=== PATIENT | female | born 1940 | race Caucasian/White ===

== ENCOUNTER → 2017-02-21 | Outpatient (CLI) | payer OTHER ==
[~2017-02-21] MED LIST: ACET1TAB84 PO; ATEN-174 PO; CALCTAB7 PO; LOSA50TA54 PO; MULT-506 PO; PRED1SUS3 OPR
[2017-02-21 13:15] LABS: BASO % 0.3 %; BASO ABS # 0.02 K/uL (0-0.2); COMPLETE YES; EOS % 0.9 %; HEMATOCRIT 39.6 % (37-47); IG% 0.2 %; LYMPH % 28.1 %; LYMPH ABS # 1.86 K/uL (1.2-3.4); MEAN CELL VOLUME 94.3 fL (80-100); MEAN CORPUSCULAR HEMOGLOBIN 31.2 pg (25-34); MEAN CORPUSCULAR HGB CONC 33.1 g/dl (32-36); MEAN PLATELET VOLUME 9.5 fL (7.4-10.4); MONO % 9.2 %; NEUT % 61.3 %; PLATELET COUNT 300 K/uL (130-400); WHITE BLOOD COUNT 6.63 K/uL (4.8-10.8)
[2017-02-21 14:22] LABS: ALT/SGPT 24 U/L (12-78); BLOOD UREA NITROGEN 18 mg/dl (7-18); CARBON DIOXIDE 31 mmol/L (21-32); CHLORIDE 102 mmol/L (98-107); CHOLESTEROL 193 mg/dl (0-200); CREATININE 0.87 mg/dl (0.60-1.20); GLUCOSE 87 mg/dl (70-99); POTASSIUM 4.6 mmol/L (3.5-5.1); SODIUM 138 mmol/L (136-145); TRIGLYCERIDES 93 mg/dl (0-150); VERY LOW DENSITY LIPOPROT CALC 19 mg/dl
[2017-02-21 14:31] LABS: CALCIUM 9.7 mg/dl (8.5-10.1)
[2017-02-21 14:32] LABS: ALB/GLOB RATIO 1.1 (0.9-2); ALKALINE PHOSPHATASE 65 U/L (45-117); AST/SGOT 27 U/L (15-37); CHOLESTEROL/HDL RATIO 3.1; HDL CHOLESTEROL 63 mg/dl; LDL CHOLESTEROL CALCULATED 111 mg/dl
== END | disposition home or self-care (01) ==
LOC: C.LABMFLN 08:41
PROVIDERS: ATTEND Family Medicine
DX: I10 Essential (primary) hypertension (principal); E78.5 Hyperlipidemia, unspecified; E55.9 Vitamin D deficiency, unspecified

== ENCOUNTER 2017-10-10 07:47 | Inpatient (IN) | payer OTHER ==
[2017-09-11 15:01] VITALS: BMI 23.0
--- NOTE | 2017-09-11 15:33 | PAT Medication Instructions ---
Service Date Sep 11, 2017. Current Home Medication List Acetaminophen (Tylenol Arthritis Ext Rel), 650 MG PO HS Atenolol (Tenormin), 50 MG PO HS Calcium Carbonate-Vitamin D W/ (Caltrate 600 Plus), 1 TAB PO BID Losartan Potassium (Cozaar), 50 MG PO QAM Multivitamin (Multivitamin), 1 TAB PO Q2D Medication Instructions For Your Scheduled Surgery - Hold the following medications the morning of surgery: Calcium Carbonate-Vitamin D W/ (Caltrate 600 Plus), 1 TAB PO BID Losartan Potassium (Cozaar), 50 MG PO QAM Multivitamin (Multivitamin), 1 TAB PO Q2D - Take the following medications as scheduled the night before surgery: Acetaminophen (Tylenol Arthritis Ext Rel), 650 MG PO HS Atenolol (Tenormin), 50 MG PO HS Calcium Carbonate-Vitamin D W/ (Caltrate 600 Plus), 1 TAB PO BID Nothing to eat or drink after midnight If you have any questions please call us at [phone] or [phone] or [phone]
[2017-09-11 16:08] LABS: BASO % 0.3 %; BASO ABS # 0.02 K/uL (0-0.2); EOS % 0.8 %; EOS ABS # 0.06 K/uL (0-0.5); HEMATOCRIT 39.6 % (37-47); HEMOGLOBIN 13.2 g/dL (12.0-16.0); IG# 0.02 K/uL (0.00-0.02); LYMPH % 27.7 %; LYMPH ABS # 2.16 K/uL (1.2-3.4); MEAN CELL VOLUME 95.2 fL (80-100); MEAN CORPUSCULAR HEMOGLOBIN 31.7 pg (25-34); MEAN CORPUSCULAR HGB CONC 33.3 g/dl (32-36); MEAN PLATELET VOLUME 10.2 fL (7.4-10.4); MONO % 7.6 %; MONO ABS # 0.59 K/uL (0.11-0.59); NEUT % 63.3 %; NEUT ABS # 4.94 K/uL (1.4-6.5); PLATELET COUNT 277 K/uL (130-400); RED CELL DISTRIBUTION WIDTH SD 45.3 fL (36.4-46.3); WHITE BLOOD COUNT 7.79 K/uL (4.8-10.8)
--- NOTE | 2017-09-11 16:17 | DIAGNOSTIC IMAGING REPORT ---
CHEST 2 VIEWS ROUTINE HISTORY: 77 years-old Female PAT preoperative exam. No acute chest complaints COMPARISON: Chest radiographs 07/26/2012 TECHNIQUE: PA and lateral views of the chest FINDINGS: Cardiac silhouette is again mildly enlarged. Atherosclerosis of the aorta. No pneumothorax, pleural effusion or focal airspace consolidation. Minimal linear subsegmental bibasilar atelectasis or scarring. Bones of the chest appear grossly intact. Degenerative changes of the shoulders and spine are noted with thoracic dextroscoliosis. IMPRESSION: No acute cardiopulmonary process. The above report was generated using voice recognition software. It may contain grammatical, syntax or spelling errors. Electronically signed by: Sundeep Henry M.D. 09/11/2017 4:15 PM Dictated Date/Time: 09/11/2017 4:14 PM
[2017-09-11 16:23] LABS: ALBUMIN 3.8 gm/dl (3.4-5.0); CALCIUM 9.5 mg/dl (8.5-10.1); CREATININE 0.88 mg/dl (0.60-1.20); POTASSIUM 4.4 mmol/L (3.5-5.1)
[2017-09-11 16:33] LABS: INR 0.9 (0.9-1.1); PTT PATIENT 26.5 SECONDS (21.0-31.0)
[2017-09-12 07:51] LABS: HEMOGLOBIN A1C 5.6 % (4.5-5.6)
--- NOTE | 2017-10-09 18:29 | HISTORY & PHYSICAL EXAMINATION ---
DATE OF ADMISSION: 10/10/2017 CHIEF COMPLAINT: Chronic right knee pain. HISTORY OF PRESENT ILLNESS: This is a 77-year-old female patient of Dr. Dominguez'felicitas complaining of chronic right knee pain, longstanding, now progressively getting worse. She has been diagnosed with end-stage osteoarthritis, per clinical and radiographic exams. She has failed intraarticular injections, home exercise program. The patient has increased pain with weightbearing activities and her pain does interfere with her activities of daily living. PAST MEDICAL HISTORY: Hypertension, hypercholesterolemia, and osteoarthritis. SOCIAL HISTORY: Nonsmoker, nondrinker. FAMILY HISTORY: Noncontributory. REVIEW OF SYSTEMS: The patient complains of chronic right knee pain; otherwise, denies any shortness of breath, chest pain, nausea, vomiting or any other joint complaints. PAST SURGICAL HISTORY: Hysterectomy, cataract and left knee surgery. MEDICATIONS: Calcium 600 daily, atenolol 50 mg daily, losartan 50 mg daily, and Tylenol Arthritis as needed. ALLERGIES: No known drug allergies. PHYSICAL EXAMINATION: GENERAL: Well-developed, well-nourished 77-year-old female in no acute distress. She is alert and oriented x3 and pleasant. HEENT: Normocephalic, atraumatic. Extraocular motions are intact. Pupils are equal and reactive to light. HEART: Regular rate and rhythm, no murmurs appreciated. LUNGS: Clear. ABDOMEN: Soft, nontender, bowel sounds present. EXTREMITIES: Right knee reveals a limited range of motion of 0-125 degrees. She has medial joint line tenderness with crepitation. She has 5/5 strength. NEUROLOGIC: Neurovascularly, she is intact in her right lower extremity. DIAGNOSES: Right knee end-stage osteoarthritis with a history of hypertension, hypercholesterolemia, and osteoarthritis. PLAN: The patient was advised of her diagnosis. Indications, risks, benefits, postop course have all been reviewed. The patient wishes to proceed with a right total knee arthroplasty. Necessary consent forms, preoperative testing and clearances will be obtained.
[~2017-10-10] VITALS: Ht 162.6 cm; Wt 62.2 kg
[2017-10-10] VITALS (9 sets, daily range): BP systolic 124–179; BP diastolic 72–83; PULSE 63–81; TEMP 36.3–36.5; O2SAT 95–100; Ht 162.6 cm; Wt 62.2 kg
[2017-10-10] MEDS: TRANEXAMIC ACID INJ 1,000 MG in SYRINGE 0 ML IV SCH ×2 (06:30→10:00)
[~2017-10-10 07:47] MED LIST changes: +ACETAMINOPHEN 500 MG TAB PO SCH; +BUPIVACAINE 0.5 % 5 MG/1 ML PF 10ML VIAL ONE; +CeleBREX 200 MG CAP PO SCH; +DEXAMETHASONE 4 MG TAB PO SCH; +FAMOTIDINE 20 MG TAB PO SCH; +GABAPENTIN 300 MG CAP PO SCH; +LACTATED RINGER'S 1000ML IV SCH; +LACTATED RINGER'S 500 ML IV SCH; +METOCLOPRAMIDE HCL 10 MG TAB PO SCH; -PRED1SUS3 OPR; +ROPIVACAINE 0.5% 5 MG/ML 30 ML VIAL ONE; +ROPIVACAINE 5MG/ML 30 ML 150 MG, BUPIVACAINE 0.5% MPF INJ 30 ML, EpINEphrine HCL INJ 0.... INFIL SCH
[2017-10-10] MEDS ORDERED: HYDROmorphone INJ 2 MG/ML SYR/VIAL IV PRN (08:00)
[2017-10-10] MEDS ORDERED: PHENYLEPHRINE 100MCG/ML 5ML SYR IV PRN (08:00)
[2017-10-10] MEDS ORDERED: ATROPINE SULFATE 0.1 MG/ML 5ML SYR IV PRN (08:00)
[2017-10-10] MEDS ORDERED: EpHEDrine SULFATE INJ 50 MG/ML AMP IV PRN (08:00)
[2017-10-10] MEDS ORDERED: ONDANSETRON INJ 2 MG/ML 2 ML VIAL IV PRN ×2 (08:00→12:15)
[2017-10-10] MEDS ORDERED: FENTANYL CITRATE INJ 50 MCG/1 ML 2 ML VIAL ONE (08:54)
[2017-10-10] MEDS ORDERED: MIDAZOLAM HCL 1 MG/ML 2ML VIAL ONE ×2 (08:54)
--- NOTE | 2017-10-10 08:54 | History & Physical Bridge Note ---
H&P Re-Evaluation Bridge Note: I have examined the patient, reviewed the History & Physical and in the interval since the performance of the History & Physical I have noted the following changes of clinical significance: No changes noted
[2017-10-10] MEDS ORDERED: POVIDONE-IODINE OP SOLN 30 ML BTL ONE (09:29)
[2017-10-10] MEDS ORDERED: ORTHO JOINT ANESTHETIC ONE (09:29)
[2017-10-10] MEDS ORDERED: BACITRACIN 50000 UNIT VIAL ONE (09:29)
[2017-10-10] MEDS: CEFAZOLIN 1000MG IV PUSH 5 ML IV SCH ×2 (10:22→17:32)
[2017-10-10] MEDS ORDERED: PROPOFOL IV EMULSION 10 MG/ML 20 ML VIAL IV ONE (11:12)
[2017-10-10] MEDS ORDERED: PHENYLEPHRINE HCL INJ 10 MG/ML VIAL ONE (11:13)
[2017-10-10] MEDS ORDERED: PHENYLEPHRINE 100MCG/ML 5ML SYR ONE (11:13)
--- NOTE | 2017-10-10 11:41 | [facility] Post Operative Brief Note ---
Immediate Operative Summary Operative Date Oct 10, 2017. Pre-Operative Diagnosis Right knee end-stage osteoarthritis Post-Operative Diagnosis Right knee end-stage osteoarthritis Procedure(s) Performed Right Total Knee Arthroplasty Surgeon Dr. Dominguez Candle Making Supervisor Surgeon(s) Tony Padgett Estimated Blood Loss 5 ml Findings end stage djd oa grade 4 medial Specimens Permanent Specimen A. Right Knee bone and tissue Drains 2 hemovac Anesthesia spinal, sedation and orthomix, adductor block Complication(s) None Disposition Recovery Room / PACU
[2017-10-10] MEDS ORDERED: MAGNESIUM HYDROXIDE SUSP 30 ML UDC PO PRN (12:15)
[2017-10-10] MEDS ORDERED: SOD PHOSPHATE/SOD BIPHOSPHATE ENEMA 132 ML BTL PR PRN (12:15)
[2017-10-10] MEDS ORDERED: ZOLPIDEM TARTRATE 5 MG TAB PO PRN (12:15)
[2017-10-10] MEDS ORDERED: TRAMADOL HCL 50 MG TAB PO PRN (12:15)
[2017-10-10] MEDS ORDERED: METOCLOPRAMIDE HCL INJ 5 MG/ML 2 ML VIAL IV PRN (12:15)
[2017-10-10] MEDS ORDERED: MoRPHine SULFATE 2 MG/ML CARP IV PRN (12:15)
[2017-10-10] MEDS ORDERED: BISACODYL 10 MG SUPP PR PRN (12:15)
[2017-10-10] MEDS ORDERED: CEFAZOLIN IV 1,000 MG in DEXTROSE 5% 50ML 50 ML IV SCH (12:15)
--- NOTE | 2017-10-10 12:58 | DIAGNOSTIC IMAGING REPORT ---
TWO VIEWS RIGHT KNEE CLINICAL HISTORY: Postoperative examination. FINDINGS: AP and crosstable lateral portable views of the right knee are obtained. A right knee arthroplasty is in near anatomic alignment. There has been undersurface remodeling of the patella. No acute fracture is seen. There are expected postoperative changes around the knee including skin clips, a surgical drain, soft tissue edema, and subcutaneous gas. Atherosclerotic calcification is noted in the popliteal artery. IMPRESSION: Expected postoperative changes status post right knee arthroplasty. No acute fracture is seen. Electronically signed by: Milton Felix M.D. 10/10/2017 12:57 PM Dictated Date/Time: 10/10/2017 12:56 PM
--- NOTE | 2017-10-10 12:58 | Anesthesiology Progress Note ---
Anesthesia Post Op Note Date & Time Oct 10, 2017 at 12:58 Vital Signs Pain Intensity: 0 Vital Signs Past 12 Hours Date Time Temp Pulse Resp B/P (MAP) Pulse Ox O2 Delivery O2 Flow Rate FiO2 10/10/17 12:35 36.4 76 16 142/72 100 Nasal Cannula 2 10/10/17 12:25 78 16 141/70 99 Oxymask 10 10/10/17 12:15 77 16 130/72 99 Oxymask 10 10/10/17 12:08 36.6 80 16 133/74 98 Oxymask 10 10/10/17 08:10 36.4 63 20 179/83 98 Room Air Notes Mental Status: alert / awake / arousable, participated in evaluation Pt Amnestic to Procedure: Yes Nausea / Vomiting: adequately controlled Pain: adequately controlled Airway Patency, RR, SpO2: stable & adequate BP & HR: stable & adequate Hydration State: stable & adequate Anesthetic Complications: no major complications apparent
--- NOTE | 2017-10-10 13:24 | Medical Consult ---
Consultation Date of Consultation: Oct 10, 2017. Attending Physician: Martinez Dominguez M.D. History of Present Illness 77 y/o F Hx HTN, HPL, osteoarthritis. Presented for elective R TKR. Pt appears to be recovering well post-op. Denies CP, SOB, N/V, fevers. Denies excessive pain presently. Past Medical/Surgical History 1) HTN 2) HPL 3) OA Family History Noncontributory Social History Occasional ETOH - nonsmoker Smoking Status: Never Smoker Allergies Coded Allergies: No Known Allergies (Unverified , 10/10/17) Current Inpatient Medications Current Inpatient Medications Medications (Trade) Dose Ordered Sig/Beatrice Route Start Time Stop Time Status Last Admin Dose Admin Lactated Ringer's 1,000 ml @ 60 mls/hr [id number] IV 10/10/17 06:00 10/10/17 22:39 Cefazolin Sodium 5 ml @ 1.667 mls/ min PREOP IV 10/10/17 06:00 10/10/17 18:00 10/10/17 10:22 1.667 MLS/MIN Acetaminophen (Tylenol Tab) 1,000 mg PREOP PO 10/10/17 06:00 10/10/17 18:00 10/10/17 08:22 1,000 MG Celecoxib (CeleBREX CAP) 200 mg PREOP PO 10/10/17 06:00 10/10/17 18:00 10/10/17 08:20 200 MG Dexamethasone (Decadron Tab) 8 mg PREOP PO 10/10/17 06:00 10/10/17 18:00 10/10/17 08:20 8 MG Famotidine (Pepcid Tab) 20 mg PREOP PO 10/10/17 06:00 10/10/17 18:00 10/10/17 08:21 20 MG Gabapentin (Neurontin Cap) 300 mg PREOP PO 10/10/17 06:00 10/10/17 18:00 10/10/17 08:21 300 MG Metoclopramide HCl (Reglan Tab) 10 mg PREOP PO 10/10/17 06:00 10/10/17 18:00 10/10/17 08:21 10 MG Lactated Ringer's 1,000 ml @ 15 mls/hr Q24H IV 10/10/17 06:00 10/11/17 05:59 Atenolol (Tenormin Tab) 50 mg HS PO 10/10/17 21:00 11/09/17 20:59 Calcium/Vitamin D (Caltrate Plus Tab) 1 tab BID PO 10/10/17 21:00 11/09/17 20:59 Losartan Potassium (coZAAR TAB) 50 mg QAM PO 10/11/17 09:00 11/10/17 08:59 Potassium Chloride/Dextrose/ Sod Cl 1,000 ml @ 100 mls/hr Q10H IV 10/10/17 13:30 10/11/17 13:29 Cefazolin Sodium 1000 mg/Dextrose 55 ml @ 100 mls/hr Q8H IV 10/10/17 12:15 10/10/17 20:47 UNV Celecoxib (CeleBREX CAP) 200 mg BID PO 10/10/17 21:00 11/09/17 20:59 Oxycodone HCl (Roxicodone Immediate Rel Tab) 1 TABLET FOR PAIN RATING... Q4H PRN PO 10/10/17 12:15 10/24/17 12:14 Morphine Sulfate (MoRPHine SULFATE INJ) FOR PAIN, 2-4MG 2MG FOR P... Q2H PRN IV 10/10/17 12:15 10/24/17 12:14 Acetaminophen (Tylenol Tab) 1,000 mg Q8H PO 10/10/17 16:00 11/09/17 15:59 Magnesium Hydroxide (Milk Of Magnesia Susp) 30 ml Q6H PRN PO 10/10/17 12:15 11/09/17 12:14 Bisacodyl (Dulcolax Supp) 10 mg DAILY PRN RI 10/10/17 12:15 11/09/17 12:14 Sodium Biphosphate/ Sodium Phosphate (Fleet Enema) 132 ml DAILY PRN RI 10/10/17 12:15 11/09/17 12:14 Docusate Sodium (coLACE CAP) 100 mg BID PO 10/10/17 21:00 11/09/17 20:59 Diphenhydramine HCl (Benadryl Cap) 25 mg Q8H PRN PO 10/10/17 12:15 11/09/17 12:14 Zolpidem Tartrate (Ambien Tab) 5 mg HSZ PRN PO 10/10/17 12:15 11/09/17 12:14 Multivitamins (Multivitamin Tab) 1 tab QAM PO 10/11/17 09:00 11/10/17 08:59 Ondansetron HCl (Zofran Inj) 4 mg Q6H PRN IV 10/10/17 12:15 11/09/17 12:14 Metoclopramide HCl (Reglan Inj) 10 mg Q6H PRN IV 10/10/17 12:15 11/09/17 12:14 Pantoprazole Sodium (Protonix Tab) 40 mg QAM PO 10/11/17 09:00 11/10/17 08:59 Tramadol HCl (Ultram Tab) 1 tablet for pain rating... Q4H PRN PO 10/10/17 12:15 11/09/17 12:14 Aspirin (Ecotrin Tab) 81 mg BID PO 10/10/17 21:00 11/09/17 20:59 Review of Systems Constitutional: No fever, No chills, No sweats Eyes: No worsening of vision ENT: No hearing loss, No unusual epistaxis, No nasal symptoms Respiratory: No cough, No sputum, No wheezing Cardiovascular: No chest pain, No orthopnea, No PND Abdomen: No pain, No nausea, No vomiting Musculoskeletal: No joint pain Genitourinary - Female: No dysuria, No urinary frequency, No urinary urgency Neurologic: No memory loss, No paralysis, No weakness Psychiatric: No depression symptoms Endocrine: No fatigue Hematologic / Lymphatic: No abnormal bleeding/bruising Integumentary: No rash Allergic / Immunologic: No environmental allergies Physical Exam Date Time Temp Pulse Resp B/P (MAP) Pulse Ox O2 Delivery O2 Flow Rate FiO2 10/10/17 12:50 36.4 81 18 151/81 (104) 98 Nasal Cannula 2.0 10/10/17 12:35 36.4 76 16 142/72 100 Nasal Cannula 2 10/10/17 12:25 78 16 141/70 99 Oxymask 10 10/10/17 12:15 77 16 130/72 99 Oxymask 10 10/10/17 12:08 36.6 80 16 133/74 98 Oxymask 10 10/10/17 08:10 36.4 63 20 179/83 98 Room Air General Appearance: WD/WN, no apparent distress Head: normocephalic Eyes: normal inspection ENT: normal ENT inspection, hearing grossly normal, TMs normal, pharynx normal Neck: supple, no JVD Respiratory/Chest: chest non-tender, lungs clear, normal breath sounds Cardiovascular: regular rate, rhythm, no edema, no gallop Abdomen/GI: normal bowel sounds, non tender, soft Genitourinary - Female: external genitalia normal, normal pelvic exam, normal cervix Back: normal inspection, no CVA tenderness Extremities/Musculoskelatal: normal inspection, no calf tenderness, normal capillary refill Neurologic/Psych: improvement engineer II-XII nml as tested, no motor/sensory deficits, alert Skin: normal color, warm/dry Assessment & Plan 77 y/o F Hx HTN, HPL, osteoarthritis. Presented for elective R TKR. Pt appears to be recovering well post-op. Denies CP, SOB, N/V, fevers. Denies excessive pain presently. 1) Post-op - pain is presently controlled - narcotics provided as needed - cont IVF - anticoagulation at earliest possible time, PT/OT per ortho 2) HTN - restart ARB folllowing AM labs 3) HPL - is untreated - diet-controlled at present Total time for this consult including review of labs, meds, records, surgical notes and discussion with pt - 28 min
[2017-10-10] MEDS: D5W AND 1/2NSS + 20MEQ KCL 1,000 ML IV SCH (13:47)
[2017-10-10] MEDS: ACETAMINOPHEN 500 MG TAB PO SCH (16:00)
[2017-10-10] MEDS: CEFAZOLIN IV 1,000 MG in SYRINGE 0 ML IV SCH (17:32)
--- NOTE | 2017-10-10 19:26 | OPERATIVE REPORT ---
DATE OF OPERATION: 10/10/2017 INDICATION FOR PROCEDURE: The patient is a 77-year-old female with progressive osteoarthritis in her left knee. She has radiographs demonstrates she is [id number] in the medial compartment with a varus knee and large osteophytes. PREOPERATIVE DIAGNOSIS: End-stage osteoarthritis of left knee. POSTOPERATIVE DIAGNOSIS: Same. PROCEDURE: Left total knee arthroplasty. SURGEON: Dr. Dominguez. PATHOLOGY COLLECTOR: VANCE Cassidy. ANESTHESIA: Spinal, adductor nerve block and Orthomix. OPERATIVE PROCEDURE: The patient was taken to the operating room and anesthetized under anesthesia as dictated. Pneumatic tourniquet was placed on left upper thigh. Left lower extremity was prepped and draped in sterile fashion. Exam demonstrates she had a varus knee with no pseudolaxity. She had a slight flexion contracture and flexion to 115 degrees. The leg was elevated, exsanguinated with Esmarch bandage and pneumatic tourniquet was raised to 325 mmHg. Anterior incision made across the left knee. Skin was incised sharply. Subcutaneous flaps were elevated. The incision was carried down through the medial retinaculum extended up into the mid third of the quadriceps tendon and extended down to the medial tibial tubercle. Intraarticular findings demonstrated she has some tricompartment osteoarthritic changes, but primarily medial compartment DJD, [id number] in the medial compartment. I used the [employer] Journey 2.0 total knee arthroplasty, Systane using Rystoaire MRI templating. The femur was sized for a size 5 and the tibia for a size 3 component. To expose the knee, the infrapatellar fat pad was resected, the cruciate ligaments and meniscal remnants were resected. The fat pad over the anterior femur for placement of the component in that area was resected. Lateral synovial bands were released. The femur was exposed. The custom femoral cutting block was pinned in position and the distal femoral cut was made. The 5-1 cutting block was placed for the 5 femur component. Anterior, posterior and chamfer cuts were made. The knee was extended and a subperiosteal peel lateral release was performed around the patella. Then a freehand cut technique was used, the patellar width was reproduced using a 35 patellar component. Drill holes were made for the patella and excess lateral facet was beveled off to prevent any impingement. The tibia was then exposed by subluxing the tibia. Then the custom tibial cutting block was pinned in position and the proximal tibial cut was made. Lamina seat coverer was used to assess the ligamentous balance, ligaments were balanced in extension and flexion. The tibia was re-exposed and the size 3 tibial baseplate was externally rotated in line with the tibial tubercle, pinned in position and the punch for the stem was used. The 5 femoral trial was inserted, centered and the notch cutting devices were used. A collet was placed and a 13 poly insert high flex gave balanced ligaments through full range of motion and patella tracked centrally. The trials were removed and then the anesthetic cocktail was injected per protocol. The knee was copiously irrigated with pulsatile lavage antibiotic solution and bacitracin. The final components were then cemented with Simplex G cement. The final components were the [employer] Journey 2.0 total knee arthroplasty size 5 left femur with the 3 tibial baseplate, 13 high flex poly insert and the posterior stabilized poly insert, and the 35 patella. The patella was a dome patella. While cement cured, the Betadine soak was used per protocol. The knee was copiously irrigated out with antibiotic solution and bacitracin. Two drains were brought out laterally. Quadriceps tendon and medial retinaculum were closed with interrupted [id number] #1 Vicryl sutures. The knee was taken through full range of motion and repair was secure. The subcutaneous tissues were closed with interrupted 2-0 Vicryl, skin was closed with cesario, sterile dressings were applied and the patient tolerated the procedure well. VANCE Cassidy was my food and beverage assistant manager. He was present for the entire procedure. He assisted in leg positioning, soft tissue retraction, instrument management and performed the fascial, subcutaneous and skin closure and will participate in postop care of the patient. I attest to the content of the Intraoperative Record and any orders documented therein. Any exception s are noted below.
[2017-10-10] MEDS: CeleBREX 200 MG CAP PO SCH (20:42)
[2017-10-10] MEDS: CALCIUM 600MG + VIT D 400 IU TAB PO SCH (20:42)
[2017-10-10] MEDS: ASPIRIN 81 MG ECTAB PO SCH (20:43)
[2017-10-10] MEDS: DOCUSATE SODIUM 100 MG CAP PO SCH (20:43)
[2017-10-11] VITALS (7 sets, daily range): BP systolic 138–188; BP diastolic 72–83; PULSE 58–71; TEMP 36.5–36.7; O2SAT 96–97
[2017-10-11] MEDS: ACETAMINOPHEN 500 MG TAB PO SCH ×4 (00:22→23:47)
[2017-10-11] MEDS: D5W AND 1/2NSS + 20MEQ KCL 1,000 ML IV SCH ×2 (00:23→10:19)
[2017-10-11] MEDS: CEFAZOLIN IV 1,000 MG in SYRINGE 0 ML IV SCH (02:30)
--- NOTE | 2017-10-11 07:07 | Clinical Documentation Query ---
CLINICAL DOCUMENTATION QUERY Dr. PIMENTEL, There is a discrepancy in the clinical record. H/P indicates pt with Right knee end-stage OA. Operative Record indicates the pt had a Left TKA. In your clinical opinion did this patient have: (x ) R TKA ( ) Not Agree ( ) Other explanation of clinical findings (Please Explain) ( ) Unable to determine (Please Define) ( ) Need to Discuss Please clarify and document your clinical opinion in the progress notes and discharge summary. Terms such as "probable", "suspected", "likely", "questionable", "possible", or "still to be ruled out" are acceptable. IF IN AGREEMENT, YOU MUST DOCUMENT ABOVE DIAGNOSTIC STATEMENT IN DAILY PROGRESS NOTES AND DISCHARGE SUMMARY. This document is not part of the patient's record. Thank You, Felicita Ruiz RN [phone]
[2017-10-11 07:20] LABS: HEMATOCRIT 30.2 % (37-47); MEAN CELL VOLUME 95.3 fL (80-100); MEAN CORPUSCULAR HEMOGLOBIN 31.5 pg (25-34); MEAN CORPUSCULAR HGB CONC 33.1 g/dl (32-36); MEAN PLATELET VOLUME 9.9 fL (7.4-10.4); PLATELET COUNT 234 K/uL (130-400); RED CELL DISTRIBUTION WIDTH CV 12.9 % (11.5-14.5); WHITE BLOOD COUNT 13.57 K/uL (4.8-10.8)
--- NOTE | 2017-10-11 07:36 | OPERATIVE REPORT ---
DATE OF OPERATION: 10/10/2017 ADDENDUM I dictated in the operative note that it was a left knee and the surgery was performed on her right knee and the dictation was in error and needs to be changed to the right knee so all aspects of the report where left side was mention should be changed to right. I attest to the content of the Intraoperative Record and any orders documented therein. Any exceptions are noted below. DEBBI
[2017-10-11 07:53] LABS: CALCIUM 8.5 mg/dl (8.5-10.1); CREATININE 0.83 mg/dl (0.60-1.20); POTASSIUM 4.7 mmol/L (3.5-5.1)
[2017-10-11] MEDS: DOCUSATE SODIUM 100 MG CAP PO SCH ×2 (08:49→20:54)
[2017-10-11] MEDS: LOSARTAN POTASSIUM 50 MG TAB PO SCH (08:49)
[2017-10-11] MEDS: PANTOprazole SOD 40 MG TAB PO SCH (08:50)
[2017-10-11] MEDS: ASPIRIN 81 MG ECTAB PO SCH ×2 (08:50→20:54)
[2017-10-11] MEDS: MULTIVITAMIN TAB PO SCH (08:50)
[2017-10-11] MEDS: CeleBREX 200 MG CAP PO SCH ×2 (08:50→20:54)
[2017-10-11] MEDS: CALCIUM 600MG + VIT D 400 IU TAB PO SCH ×2 (08:50→20:54)
--- NOTE | 2017-10-11 09:42 | Orthopedic Progress Note ---
Orthopedic Progress Note Date of Service Oct 11, 2017. Subjective Post OP Day: 1 Reports: feeling well, pain controlled w PO medications, Denies: complaints, chest pain, SOB, nausea / vomiting, light headedness, calf pain Objective calves soft nontender, N/V intact, capillary refill less than 2 sec., dressing C /D/I, A&O x3, toes mobile Patient with Right foot drop but states it has been improving overnight, is feeling some tingling and is able to wiggle toes. Date Time Temp Pulse Resp B/P (MAP) Pulse Ox O2 Delivery O2 Flow Rate FiO2 10/11/17 08:00 Room Air 10/11/17 07:36 36.7 63 19 164/79 (107) 97 Room Air 10/11/17 03:34 36.7 58 16 138/72 (94) 97 Room Air 10/11/17 00:15 Room Air 10/10/17 23:08 36.5 64 16 124/75 (91) 96 Room Air 10/10/17 20:39 63 144/72 (96) 10/10/17 20:18 36.5 66 17 153/72 (99) 95 Room Air 10/10/17 15:58 36.3 73 17 155/73 (100) 98 Nasal Cannula 2.0 10/10/17 15:45 Room Air 10/10/17 14:56 75 16 144/81 (102) 98 Room Air 10/10/17 13:52 79 16 153/79 (103) 100 Nasal Cannula 2.0 10/10/17 13:29 Nasal Cannula 2.0 10/10/17 13:24 Nasal Cannula 2.0 10/10/17 13:18 77 16 145/82 (103) 99 Nasal Cannula 2.0 10/10/17 12:50 36.4 81 18 151/81 (104) 98 Nasal Cannula 2.0 10/10/17 12:35 36.4 76 16 142/72 100 Nasal Cannula 2 10/10/17 12:25 78 16 141/70 99 Oxymask 10 10/10/17 12:15 77 16 130/72 99 Oxymask 10 10/10/17 12:08 36.6 80 16 133/74 98 Oxymask 10 Laboratory Results 24 Hours: Test 10/11/17 06:44 Hematocrit 30.2 % Hemoglobin 10.0 g/dL Assessment & Plan Assessment: POD #1, Right TKA Post op foot drop, improving already. Plan: PT/ OT DVT proph- ASA D/C planning- Home w OPPT Sunday. Inhouse Planning Pain Management: Celebrex, Morphine, PO Tylenol, Oxy IR DVT Prophylaxis: TEDs, SCDs, ASA Discharge Planning Discharge Planning: home with oppt Pain Management: Celebrex, PO Tylenol, Oxy IR DVT Prophylaxis: TEDs, ASA Therapy: Physical Therapy, Occupational Therapy
--- NOTE | 2017-10-11 11:05 | Hospitalist Progress Note ---
Hospitalist Progress Note Date of Service Oct 11, 2017. Subjective Pt evaluation today including: conversation w/ patient, physical exam, lab review, review of inpatient medication list Voiding: no voiding problems Patient sitting in bedside chair. Eating and drinking OK. +BM this AM. Pain 0/10. Patient denies any fever, chills, sweats, lightheadedness, dizziness, vision changes, CP, palpitations, edema, SOB, wheezing, cough, abdominal pain, nausea, vomiting, diarrhea, urinary symptoms, melena, numbness/tingling, weakness, muscle/joint pain, anxiety/depression, active bleeding, or new skin discoloration/changes. Medications Current Inpatient Medications Medications (Trade) Dose Ordered Sig/Beatrice Route Start Time Stop Time Status Last Admin Dose Admin Atenolol (Tenormin Tab) 50 mg HS PO 10/10/17 21:00 11/09/17 20:59 10/10/17 20:43 50 MG Calcium/Vitamin D (Caltrate Plus Tab) 1 tab BID PO 10/10/17 21:00 11/09/17 20:59 10/11/17 08:50 1 TAB Losartan Potassium (coZAAR TAB) 50 mg QAM PO 10/11/17 09:00 11/10/17 08:59 10/11/17 08:49 50 MG Potassium Chloride/Dextrose/ Sod Cl 1,000 ml @ 100 mls/hr Q10H IV 10/10/17 13:30 10/11/17 13:29 10/11/17 10:19 100 MLS/HR Celecoxib (CeleBREX CAP) 200 mg BID PO 10/10/17 21:00 11/09/17 20:59 10/11/17 08:50 200 MG Oxycodone HCl (Roxicodone Immediate Rel Tab) 1 TABLET FOR PAIN RATING... Q4H PRN PO 10/10/17 12:15 10/24/17 12:14 Morphine Sulfate (MoRPHine SULFATE INJ) FOR PAIN, 2-4MG 2MG FOR P... Q2H PRN IV 10/10/17 12:15 10/24/17 12:14 Acetaminophen (Tylenol Tab) 1,000 mg Q8H PO 10/10/17 16:00 11/09/17 15:59 10/11/17 08:49 1,000 MG Magnesium Hydroxide (Milk Of Magnesia Susp) 30 ml Q6H PRN PO 10/10/17 12:15 11/09/17 12:14 Bisacodyl (Dulcolax Supp) 10 mg DAILY PRN WI 10/10/17 12:15 11/09/17 12:14 Sodium Biphosphate/ Sodium Phosphate (Fleet Enema) 132 ml DAILY PRN WI 10/10/17 12:15 11/09/17 12:14 Docusate Sodium (coLACE CAP) 100 mg BID PO 10/10/17 21:00 11/09/17 20:59 10/11/17 08:49 100 MG Diphenhydramine HCl (Benadryl Cap) 25 mg Q8H PRN PO 10/10/17 12:15 11/09/17 12:14 Zolpidem Tartrate (Ambien Tab) 5 mg HSZ PRN PO 10/10/17 12:15 11/09/17 12:14 Multivitamins (Multivitamin Tab) 1 tab QAM PO 10/11/17 09:00 11/10/17 08:59 10/11/17 08:50 1 TAB Ondansetron HCl (Zofran Inj) 4 mg Q6H PRN IV 10/10/17 12:15 11/09/17 12:14 Metoclopramide HCl (Reglan Inj) 10 mg Q6H PRN IV 10/10/17 12:15 11/09/17 12:14 Pantoprazole Sodium (Protonix Tab) 40 mg QAM PO 10/11/17 09:00 10/15/17 08:59 10/11/17 08:50 40 MG Tramadol HCl (Ultram Tab) 1 tablet for pain rating... Q4H PRN PO 10/10/17 12:15 11/09/17 12:14 Aspirin (Ecotrin Tab) 81 mg BID PO 10/10/17 21:00 11/09/17 20:59 10/11/17 08:50 81 MG Objective Vital Signs Date Time Temp Pulse Resp B/P (MAP) Pulse Ox O2 Delivery O2 Flow Rate FiO2 10/11/17 08:00 Room Air 10/11/17 07:36 36.7 63 19 164/79 (107) 97 Room Air 10/11/17 03:34 36.7 58 16 138/72 (94) 97 Room Air 10/11/17 00:15 Room Air 10/10/17 23:08 36.5 64 16 124/75 (91) 96 Room Air 10/10/17 20:39 63 144/72 (96) 10/10/17 20:18 36.5 66 17 153/72 (99) 95 Room Air 10/10/17 15:58 36.3 73 17 155/73 (100) 98 Nasal Cannula 2.0 10/10/17 15:45 Room Air 10/10/17 14:56 75 16 144/81 (102) 98 Room Air 10/10/17 13:52 79 16 153/79 (103) 100 Nasal Cannula 2.0 10/10/17 13:29 Nasal Cannula 2.0 10/10/17 13:24 Nasal Cannula 2.0 10/10/17 13:18 77 16 145/82 (103) 99 Nasal Cannula 2.0 10/10/17 12:50 36.4 81 18 151/81 (104) 98 Nasal Cannula 2.0 10/10/17 12:35 36.4 76 16 142/72 100 Nasal Cannula 2 10/10/17 12:25 78 16 141/70 99 Oxymask 10 10/10/17 12:15 77 16 130/72 99 Oxymask 10 10/10/17 12:08 36.6 80 16 133/74 98 Oxymask 10 Physical Exam General Appearance: no apparent distress Eyes: normal inspection, PERRL ENT: hearing grossly normal Neck: supple Respiratory/Chest: lungs clear, no respiratory distress, no accessory muscle use Cardiovascular: regular rate, rhythm Abdomen: normal bowel sounds, non tender, soft Extremities: no pedal edema, no calf tenderness, + pertinent finding (R knee in HUGO bandage ) Neurologic/Psychiatric: alert, normal mood/affect, oriented x 3 Skin: normal color, warm/dry, no rash Laboratory Results Last 24 Hours Test 10/11/17 06:44 White Blood Count 13.57 K/uL Red Blood Count 3.17 M/uL Hemoglobin 10.0 g/dL Hematocrit 30.2 % Mean Corpuscular Volume 95.3 fL Mean Corpuscular Hemoglobin 31.5 pg Mean Corpuscular Hemoglobin Concent 33.1 g/dl RDW Standard Deviation 45.0 fL RDW Coefficient of Variation 12.9 % Platelet Count 234 K/uL Mean Platelet Volume 9.9 fL Sodium Level 137 mmol/L Potassium Level 4.7 mmol/L Chloride Level 104 mmol/L Carbon Dioxide Level 26 mmol/L Anion Gap 7.0 mmol/L Blood Urea Nitrogen 20 mg/dl Creatinine 0.83 mg/dl Est Creatinine Clear Calc Drug Dose 48.3 ml/min Estimated GFR () 78.3 Estimated GFR (Non- 67.5 BUN/Creatinine Ratio 23.7 Random Glucose 114 mg/dl Calcium Level 8.5 mg/dl Assessment and Plan 77 y/o F Hx HTN, HPL, osteoarthritis. Presented for elective R TKR. Pt appears to be recovering well post-op. Denies CP, SOB, N/V, fevers. Denies excessive pain presently. s/p R TKA by Dr. Dominguez on 10/10: - Surgical management, pain management, PT/OT, and DVT prophylaxis as per primary team - Bowel regimen ordered - Encouraged incentive spirometer - Postop CBC and PRP- STABLE HTN: Continue Losartan 50 mg daily and Atenolol 50 mg daily HLD- diet-controlled: Continue PCP f/u GI prophylaxis: Protonix daily DVT prophylaxis: ASA BID as per surgical team Code Status: LEVEL I, FULL Dispo: As per primary team- planning for home w/ outpatient PT likely tomorrow - Patient is medically stable for discharge- will sign off, feel free to contact hospitalist team with any questions/concerns
--- NOTE | 2017-10-11 12:09 | Discharge Instructions ---
Discharge Instructions Date of Service Oct 11, 2017. Admission Reason for Admission: Right Knee Osteoarthritis Discharge Discharge Diagnosis / Problem: RIGHT TKA Discharge Goals Goal(s): Improve function Activity Recommendations Activity Limitations: as noted below . Instructions / Follow-Up Instructions / Follow-Up ACTIVITY RECOMMENDATIONS: SELF CARE INSTRUCTIONS AFTER TOTAL KNEE REPLACEMENT A. You may need to continue a physical therapy program after discharge from the hospital. There are several options available to you. Your doctor will assist you in selecting the best one for you. 1. An out-patient facility 2 to 3 times a week for therapy or home therapy. 2. Continue working on all exercises taught to you in the hospital. Your goals should be to increase bending of your knee to 90 degrees and beyond and to fully straighten your knee. B. You may progress at your own pace from walking with a walker or crutches to a cane; then to no assistive devices. C. Make walking a part of your daily routine. Be up as much as comfortable with rest periods throughout the day. Rest with leg elevation is very important. Use the ice wrap frequently for the first 3-4 weeks. D. There are no restrictions on activities. You may ride in a car, shop, participate in mill operator helper and all social activities. E. Wear the long elastic stockings (NENO hose) 20 hours a day for 2 weeks after surgery. They can be removed several times a day for laundering and for a bath. F. You may shower, no tub baths until cleared by your doctor. SPECIAL CARE INSTRUCTIONS: VERY IMPORTANT TO READ AND REVIEW A. There are a few signs you need to watch for after you are home. Call [facility] if you notice any of the followin. Increased severe knee pain. Some pain is expected especially when you exercise. 2. Increased swelling in your leg or knee; pain or swelling of the calf muscle in either lower leg. 3. Any fluid drainage from the incision. 4. Shortness of breath or chest pain. B. Please call [facility] at if you have any concerns or questions about your operation or recovery. The doctor or his nurse will return your call promptly. C. You must take antibiotics before dental work, bladder, bowel or other surgery. Your doctor will provide you with a permanent care to carry describing this precaution. IMPORTANT: * REMEMBER TO TAKE ASPIRIN, 81 MG, TWICE DAILY FOR 4 WEEKS UNLESS OTHERWISE DIRECTED. THIS IS YOUR BLOOD THINNER. * HIGH RISK PATIENTS MAY BE PRESCRIBED A STRONGER BLOOD THINNER. THIS WILL BE PROVIDED AT DISCHARGE. * CALL IF INCREASED PAIN, REDNESS, DRAINAGE OR FEVER GREATER THAT 101. * WEAR NENO HOSE 20 HOURS PER DAY FOR 2 WEEKS. * YOU MAY HAVE A LARGE BAND-AID LIKE DRESSING (SILVERON). THIS WILL REMAIN ON YOUR INCISION FOR 7 DAYS, THEN CAN BE REMOVED. IF INCISION IS LEAKING THROUGH DRESSING, CALL THE OFFICE . FOLLOW UP VISIT: If appointment is not already scheduled: Please call [facility] to make a follow-up appointment for 2 weeks after your surgery at . Current Hospital Diet Patient's current hospital diet: Regular Diet Discharge Diet Recommended Diet: Regular Diet Procedures Procedures Performed: Right Total Knee Arthroplasty Pending Studies Studies pending at discharge: no Laboratory Results Hemoglobin A1c Test 09/11/17 15:44 Range/Units Estimated Average Glucose 114 mg/dl Hemoglobin A1c 5.6 4.5-5.6 % Medical Emergencies . Who to Call and When: Medical Emergencies: If at any time you feel your situation is an emergency, please call 911 immediately. . Non-Emergent Contact Non-Emergency issues call your: Primary Care Provider . "Provider Documentation" section prepared by Tony Wagner. . VTE Core Measure Inpt VTE Proph given/why not?: Other Anticoagulation (ASA), T.E.D. Stockings, SCD's [place] Drug Monitoring Program Search Results: patient reviewed within database, no issues identified
[2017-10-11] MEDS: OXYCODONE HCL IR 5 MG TAB (IMMEDIATE RELEASE) PO PRN (23:47)
[2017-10-12 03:20] VITALS: BP 167/80
[2017-10-12 06:00] LABS: HEMOGLOBIN 9.4 g/dL (12.0-16.0); MEAN CELL VOLUME 94.3 fL (80-100); MEAN CORPUSCULAR HEMOGLOBIN 31.6 pg (25-34); MEAN CORPUSCULAR HGB CONC 33.6 g/dl (32-36); PLATELET COUNT 221 K/uL (130-400); RED CELL DISTRIBUTION WIDTH CV 13.2 % (11.5-14.5); RED CELL DISTRIBUTION WIDTH SD 45.4 fL (36.4-46.3); WHITE BLOOD COUNT 8.31 K/uL (4.8-10.8)
[2017-10-12 06:37] LABS: CALCIUM 8.5 mg/dl (8.5-10.1); CREATININE 0.93 mg/dl (0.60-1.20); POTASSIUM 4.4 mmol/L (3.5-5.1)
[2017-10-12 07:29] VITALS: BP 147/71; PULSE 68; TEMP 36.8; O2SAT 93
--- NOTE | 2017-10-12 07:52 | Orthopedic Progress Note ---
Orthopedic Progress Note Date of Service Oct 12, 2017. Subjective Post OP Day: 2 Reports: feeling well, Denies: complaints Objective calves soft nontender, N/V intact, dressing C/D/I (silverlon), A&O x3, toes mobile Date Time Temp Pulse Resp B/P (MAP) Pulse Ox O2 Delivery O2 Flow Rate FiO2 10/12/17 07:29 36.8 68 18 147/71 (96) 93 Room Air 10/12/17 03:20 167/80 (109) 10/11/17 23:45 Room Air 10/11/17 22:53 36.6 71 16 188/83 (118) 96 Room Air 10/11/17 20:51 62 158/76 (103) 10/11/17 15:15 Room Air 10/11/17 15:07 36.5 61 18 156/74 (101) 96 Room Air 10/11/17 11:03 36.6 58 17 146/77 (100) 96 Room Air 10/11/17 10:59 64 96 10/11/17 08:00 Room Air Laboratory Results 24 Hours: Test 10/12/17 05:29 Hematocrit 28.0 % Hemoglobin 9.4 g/dL Assessment & Plan Assessment: POD #2, Right TKA Post op foot drop resolved Plan: PT/ OT DVT proph- ASA D/C planning- Home w OPPT today Inhouse Planning Pain Management: Celebrex, Ultram, Morphine, PO Tylenol, Oxy IR DVT Prophylaxis: TEDs, SCDs, ASA Discharge Planning Discharge Planning: home with oppt Pain Management: Celebrex, PO Tylenol, Oxy IR DVT Prophylaxis: TEDs, ASA Therapy: Physical Therapy
[2017-10-12] MEDS ORDERED: ASPEC81 PO (07:56)
[2017-10-12] MEDS ORDERED: CLB200 PO (07:56)
[2017-10-12] MEDS ORDERED: RXC5 PO (07:56)
[2017-10-12] MEDS ORDERED: SENN1TAB80 PO (07:56)
[2017-10-12] MEDS ORDERED: ACET-24 PO (07:56)
[2017-10-12] MEDS: OXYCODONE HCL IR 5 MG TAB (IMMEDIATE RELEASE) PO PRN (08:15)
[2017-10-12] MEDS: DOCUSATE SODIUM 100 MG CAP PO SCH (08:16)
[2017-10-12] MEDS: ACETAMINOPHEN 500 MG TAB PO SCH (08:16)
[2017-10-12] MEDS: ASPIRIN 81 MG ECTAB PO SCH (08:17)
[2017-10-12] MEDS: MULTIVITAMIN TAB PO SCH (08:17)
[2017-10-12] MEDS: CeleBREX 200 MG CAP PO SCH (08:17)
[2017-10-12] MEDS: CALCIUM 600MG + VIT D 400 IU TAB PO SCH (08:17)
[2017-10-12] MEDS: LOSARTAN POTASSIUM 50 MG TAB PO SCH (08:17)
[2017-10-12] MEDS: PANTOprazole SOD 40 MG TAB PO SCH (08:18)
[2017-10-12 11:41] VITALS: BP 147/71; PULSE 68; TEMP 36.8; O2SAT 93
== END 2017-10-12 13:44 | disposition home or self-care (01) | DRG 470 ==
LOC: C.ACU 07:47 → C.3E 08:47 → ENRESERV 12:40
PROVIDERS: ADMIT Orthopaedic Surgery Sports Medicine; ATTEND Orthopaedic Surgery Sports Medicine
PROC: 0SRC0J9 Replacement of Right Knee Joint with Synthetic Substitute, Cemented, Open Approach (ICD-10-PCS; principal; 2017-10-10 10:00)
DX: M17.11 Unilateral primary osteoarthritis, right knee (principal); I10 Essential (primary) hypertension; E78.00 Pure hypercholesterolemia, unspecified; Z79.899 Other long term (current) drug therapy

== ENCOUNTER 2019-11-14 10:06 | Inpatient (IN) ==
[2019-11-14 11:03] LABS: Basophils # (auto) 0.02 K/uL (0-0.2); Basophils % (auto) 0.2 %; Eosinophils # (auto) 0.04 K/uL (0-0.5); Eosinophils % (auto) 0.4 %; Hematocrit (blood only) 40.9 % (37-47); Hemoglobin 13.6 g/dL (12.0-16.0); Immature Granulocytes # (auto) 0.02 K/uL (0.00-0.02); Immature Granulocytes % (auto) 0.2 %; Lymphocytes % (auto) 17.6 %; Mean Corpuscular Hemoglobin 31.6 pg (25-34); Mean Corpuscular Hgb Conc 33.3 g/dL (32-36); Mean Corpuscular Volume 95.1 fL (80-100); Mean Platelet Volume 10.2 fL (7.4-10.4); Monocytes # (auto) 0.65 K/uL (0.11-0.59); Monocytes % (auto) 7.1 %; Neutrophils # (auto) 6.77 K/uL (1.4-6.5); Neutrophils % (auto) 74.5 %; Platelet Count 282 K/uL (130-400); RDW Coefficient of Variation 13.2 % (11.5-14.5); RDW Standard Deviation 45.6 fL (36.4-46.3)
[2019-11-14 11:14] LABS: Partial Thromboplastin Time 27.6 Seconds (21.0-31.0); Prothrombin Time 9.8 Seconds (9.0-12.0)
--- NOTE | 2019-11-14 11:19 | XRay Report ---
XR chest 1V portable CLINICAL HISTORY: 79 years-old Female presenting with Chest Pain. TECHNIQUE: Portable upright AP view of the chest was obtained. COMPARISON: CTA chest from 07/24/2019. FINDINGS: Atherosclerosis of the aortic arch. Cardiac silhouette enlarged. Minimal basilar opacities. No pleura l effusion or pneumothorax. Degenerative changes of the thoracic spine. Osteopenia. Upper abdomen nor mal. IMPRESSION: 1. Cardiomegaly. 2. Minimal bibasilar atelectasis or scarring. No other convincing evidence of acute cardiopulmonary disease. ACT 112: Negative or not required by law. Electronically signed by: Mickey Rust M.D. 11/14/2019 11:18 AM
[2019-11-14 11:21] LABS: Albumin Level 3.9 gm/dl (3.4-5.0); BUN Creatinine Ratio 18.9 (10-20); Calcium 9.6 mg/dl (8.5-10.1); Creatinine Clr Calc Pharmacy 42.6 ml/min; Est GFR (African American) 69.1; Est GFR (Non-African American) 59.6; Potassium 4.2 mmol/L (3.5-5.1)
[2019-11-14 11:29] LABS: Albumin Globulin Ratio 1.1 (0.9-2); Bilirubin,Total 1.8 mg/dl (0.2-1); Globulin 3.6 gm/dl (2.5-4.0); Total Protein 7.5 gm/dl (6.4-8.2); Troponin I 5.15 ng/ml (0-0.045)
[2019-11-14] MEDS ORDERED: HEPARIN SODIUM/DEXTROSE 25,000 UNITS/500 ML BAG IV SCH (11:45)
[2019-11-14] MEDS ORDERED: HEPARIN SOD 5,000 UNIT/0.5 ML VIAL ONE (12:11)
--- NOTE | 2019-11-14 13:00 | History & Physical Report ---
Date of Service November 14, 2019 Assessment & Plan (1) ACS (acute coronary syndrome): Admit to PCU on telemetry for further evaluation of unstable angina(exertional chest discomfort, and abnormal nuclear stress test) Vital signs every 4 hours Consult cardiology Started heparin drip with bolus Monitor troponin Keep n.p.o. since patient will most likely need cardiac catheterization DVT prophylaxis patient is already on heparin drip with bolus. Given aspirin in the ER 324mg x1 Full code (2) LBBB (left bundle branch block): EKG shows sinus rhythm with PVCs and bigeminy. Patient had left bundle branch block before, noted some changes. Will discuss with cardiology (3) Aortic regurgitation: She has moderate to severe mitral regurgitation as well as a dilated aortic root. CT scan to rule out dissection prior to catheterization. (4) Hyperlipidemia: Fasting lipid panel pending. Patient is not taking statins. Present on Admission?: Yes (5) Benign essential hypertension: Monitor blood pressure closely. Continue atenolol 50 mg p.o. nightly, isosorbide mononitrate 30 mg p.o. nightly, Losartan 100 mg p.o. every morning Present on Admission?: Yes History of Present Illness Chief Complaint: Chest pain Primary Care Provider: Pat Muro MD The patient is an 79 years old female with past medical history of mitral regurgitation, hyperlipidemia, dilated aortic arch, chronic hepatitis, hypertension, aortic regurgitation, tricuspid regurgitation, who presents to the emergency room with a complaint of intermittent chest pain that started yesterday, resolved and occurred again today in a.m. Patient reports that pain was radiating into her shoulder and her back. Patient was taking her medicine and she took last night her isosorbide and pain resolved after 30 minutes. After arrival to the emergency room patient reported that her pain was 0. Patient reports that she has shortness of breath with exertion and she took 4 baby aspirins today. Patient denies fever, chills, chest pain at the present time ,shortness of breath, abdominal pain, frequency, urgency. Labs are reviewed which shows WBCs of 9.10, hemoglobin 13.6, hematocrit 40.9, platelets 282, PT 10.6, INR 1, sodium 138, potassium 4.2, chloride 104, carbon dioxide 31, anion gap 3, BUN 17, creatinine 0.91, GFR 59.6, A1c pending, calcium 9.6, AST 64, ALT 34, troponin 5.150, BNP 5888, TSH 3.43.Chest x-ray shows cardiomegaly, minimal basilar atelectasis or scarring. No other convincing evidence of acute cardiopulmonary disease. 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 No evidence of aneurysm rupture or dissection. No airspace consolidation or pleural effusion. 8 mm solid nodule of the right middle lobe demonstrates area of central low attenuation suggestive of microscopic fat. 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 Unchanged indeterminate 4 mm solid nodule of the basal right lower lobe. No evidence of pulmonary thromboembolic disease. Decision was made to admit patient to PCU on telemetry for further treatment of intermittent chest pain and to rule out acute coronary syndrome. Allergies Allergy/AdvReac Type Severity Reaction Status Date / Time No Known Allergies Allergy Verified 11/14/19 11:17 Home Medications Home Medications Medication Instructions Recorded Confirmed Type calcium carbonate 600 mg (1,500 1 tab PO BID #180 tab 04/21/19 11/14/19 Rx mg)-vitamin D3 400 unit tablet atenolol 50 mg tablet 50 mg PO HS tab 10/07/19 11/14/19 History acetaminophen [Tylenol Arthritis 650 mg PO HS 11/14/19 11/14/19 History Pain] isosorbide mononitrate 30 mg PO HS 11/14/19 11/14/19 History losartan 100 mg PO QAM 11/14/19 11/14/19 History multivitamin,[id number] 1 tab PO MOWEFR 11/14/19 11/14/19 History [Complete Multivitamin] Past Med/Surg History Medical History Aortic regurgitation (Chronic) Benign essential hypertension (Chronic) Chronic hepatitis (Chronic) Dilated aortic root (Chronic) EKG, abnormal (Chronic) Generalized osteoarthritis of multiple sites (Chronic) Hyperlipidemia (Chronic) LBBB (left bundle branch block) Mitral regurgitation (Chronic) Postmenopausal osteoporosis (Chronic) Tricuspid regurgitation (Chronic) Vitamin D deficiency (Chronic) Surgical History H/O breast biopsy S/P colonoscopy S/P hysterectomy S/P knee replacement Family History Sister Coronary heart disease Father Coronary heart disease Social History Preferred Language: Ethiopian Permit Specialist Required: No Beliefs That Will Affect Care: None marital status: Current Living Situation: Spouse Feels Safe at Home: Yes Smoking Status: Never smoker Second Hand Exposure: Yes ; Hx Alcohol Use: Yes Hx Substance Use: No Review of Systems Review of Systems: All systems reviewed & are unremarkable except as noted in HPI & below Physical Exam Constitutional: WD/WN, vitals as above well developed Eyes: PERRL, conjunctivae normal, anicteric sclerae ENMT: Mallampati Class: II Neck: trachea midline, no thyromegaly Respiratory: normal respiratory effort, lungs clear to auscultation Cardiovascular: RRR, no murmur, no edema Gastrointestinal (Abdomen): normal bowel sounds, soft, nontender, no hepatosplenomegaly Musculoskeletal: no cyanosis or clubbing, extremities motor strength 5/5 Skin: no rashes, warm and dry Neurologic: patellar DTR's 2+ bilat, sensation intact Psychiatric: A+Ox3, euthymic affect Lymphatic: no cervical or axillary lymphadenopathy Results & Data Vital Signs (Past 12 Hours) Vital Signs Temp Pulse Pulse Resp BP BP Pulse Ox 11/14/19 12:47 65 16 154/86 H 96 11/14/19 11:34 64 16 149/69 H 96 11/14/19 10:51 97 11/14/19 10:22 36.4 C L 82 16 161/77 H 97 Code Status & VTE Plan Code Status Full code VTE Prophylaxis Plan VTE Prophylaxis will be ordered: Yes PG Care Time/CCT Total # of Minutes Spent Total Time Spent with Patient: Total time spent is greater than 50% in coordination of care (as documented) at patient's floor/unit and/or counseling patient: Coding Level of Care Code 88686 Initial Inpt Care Lvl 3 Diagnoses ACS (acute coronary syndrome) I24.9 LBBB (left bundle branch block) I44.7 Aortic regurgitation I35.1 Hyperlipidemia E78.5 Benign essential hypertension I10
--- NOTE | 2019-11-14 13:16 | Cardiology Consultation ---
Date of Consultation November 14, 2019 Assessment & Plan (1) ACS (acute coronary syndrome): She has had exertional chest discomfort suggestive of angina as well as an abnormal nuclear stress test but until now has not had rest angina. She now presents with similar symptoms but occurring at rest, lasting several hours before resolution last evening. She has had no recurrence. Her troponin is now 5. She has left bundle branch block so we cannot evaluate her for electrocardiographic changes. This is indicative of an acute coronary event, probably a non-ST segment elevation myocardial infarction. We had suggested catheterization in the recent past but she had not made that decision. She is now agreeable, I suspect she has an unstable lesion and it should be evaluated. We will plan on urgent catheterization this afternoon. She has been n.p.o. and did not eat breakfast. (2) LBBB (left bundle branch block): She has left bundle branch block which is recent but not new, her left bundle branch pattern is new since August 2017 but was seen on her more recent electrocardiograms. This is probably not part of her presentation but inhibits her ability to read her electrocardiogram for ischemia or localization of injury. (3) Aortic regurgitation: She has moderate to severe mitral regurgitation as well as a dilated aortic root. This is possibly related to her acute presentation as a dissection involving the coronaries can also present this way. I am going to get a CT scan to rule out dissection prior to catheterization. History of Present Illness Reason for Consultation: Chest pain History of Present Illness This is an 79-year-old woman who has a history of a dilated aortic root and a sending aorta with moderate aortic insufficiency and a left bundle branch block pattern. Recent echocardiogram in May 2019 has shown normal left ventricular size and function with moderate to severe aortic insufficiency. A nuclear stress test done July 24, 2019 showed a reversible basal to mid infero- lateral perfusion defect suggestive of circumflex ischemia although this could also be diaphragmatic attenuation. A chest CT scan July 24, 2019 showed aneurysmal dilatation aortic root and ascending thoracic aorta up to 4.7 cm in diameter. Discussion was undertaken regarding evaluation and catheterization was suggested, however she preferred to discuss it with her PCP and therefore that catheterization was not done. She presents now with about 2 hours of rest pain which occurred last evening at 7:00 after she was done with dinner and the dishes and sat down to watch TV. She took her isosorbide mononitrate (she does not use sublingual nitroglycerin evidently) and after about half an hour the symptoms resolved. The duration of the discomfort was about 2 hours, it was not associated with shortness of breath or palpitations. She describes it as a substernal heaviness, not a pain. She reports that she has been having these similar discomforts with exertion from time to time, lasting a few minutes and resolving when she rests. She has had no further chest discomfort, presented to her PCP, was referred to the emergency room and here in the emergency room was pain-free but noted to have a troponin of over 5. She has now reconsidered and would consider invasive evaluation. She denies orthopnea or PND or radiation of this discomfort. Allergies Allergy/AdvReac Type Severity Reaction Status Date / Time No Known Allergies Allergy Verified 11/14/19 11:17 Home Medications Home Medications Medication Instructions Recorded Confirmed Type calcium carbonate 600 mg (1,500 1 tab PO BID #180 tab 04/21/19 11/14/19 Rx mg)-vitamin D3 400 unit tablet atenolol 50 mg tablet 50 mg PO HS tab 10/07/19 11/14/19 History acetaminophen [Tylenol Arthritis 650 mg PO HS 11/14/19 11/14/19 History Pain] isosorbide mononitrate 30 mg PO HS 11/14/19 11/14/19 History losartan 100 mg PO QAM 11/14/19 11/14/19 History multivitamin,[id number] 1 tab PO MOWEFR 11/14/19 11/14/19 History [Complete Multivitamin] Patient History Medical History Aortic regurgitation (Chronic) Benign essential hypertension (Chronic) Chronic hepatitis (Chronic) Dilated aortic root (Chronic) EKG, abnormal (Chronic) Generalized osteoarthritis of multiple sites (Chronic) Hyperlipidemia (Chronic) LBBB (left bundle branch block) Mitral regurgitation (Chronic) Postmenopausal osteoporosis (Chronic) Tricuspid regurgitation (Chronic) Vitamin D deficiency (Chronic) Surgical History H/O breast biopsy S/P colonoscopy S/P hysterectomy S/P knee replacement Family History Sister Coronary heart disease Father Coronary heart disease Social History marital status: Current Living Situation: Spouse Feels Safe at Home: Yes Smoking Status: Never smoker Review of Systems Review of Systems: All systems reviewed & are unremarkable except as noted in HPI & below Physical Exam Physical Exam: Constitutional: Alert, cooperative and in no distress. HEENT: Unremarkable Neck: No jugular venous distention, carotid pulses are normal and equal bilaterally without bruits. Pulmonary: Clear to auscultation bilaterally. Cardiac: Regular rhythm with a grade 2/6 diastolic murmur along left sternal border, no gallop or rub. Abdomen: Soft, nontender with normal bowel sounds. Extremities: No edema. Distal pulses intact. Neurologic: No focal findings. Gait is steady. Skin: No rash, ecchymoses or petechiae. Results & Data ([facility]) Vital Signs (Past 12 Hours) Vital Signs Temp Pulse Pulse Resp BP BP Pulse Ox 11/14/19 12:47 65 16 154/86 H 96 11/14/19 11:34 64 16 149/69 H 96 11/14/19 10:51 97 11/14/19 10:22 36.4 C L 82 16 161/77 H 97 Laboratory Results Cardiac Enzymes 11/14/19 Range/Units 10:40 AST 64 H (15-37) U/L Troponin I 5.150 H* (0-0.045) ng/ml Coagulation 11/14/19 Range/Units 10:40 PT 9.8 (9.0-12.0) Seconds APTT 27.6 (21.0-31.0) Seconds CBC 11/14/19 Range/Units 10:40 WBC 9.10 (4.8-10.8) K/uL RBC 4.30 (4.2-5.4) M/uL Hgb 13.6 (12.0-16.0) g/dL Hct 40.9 (37-47) % Plt Count 282 (130-400) K/uL Neut # (Auto) 6.77 H (1.4-6.5) K/uL Lymph # (Auto) 1.60 (1.2-3.4) K/uL [place] # (Auto) 0.65 H (0.11-0.59) K/uL Eos # (Auto) 0.04 (0-0.5) K/uL Baso # (Auto) 0.02 (0-0.2) K/uL Comprehensive Metabolic Panel 11/14/19 Range/Units 10:40 Sodium 138 (136-145) mmol/L Potassium 4.2 (3.5-5.1) mmol/L Chloride 104 (98-107) mmol/L Carbon Dioxide 31 (21-32) mmol/L BUN 17 (7-18) mg/dl Creatinine 0.91 (0.6-1.2) mg/dl Glucose 95 (70-99) mg/dl Calcium 9.6 (8.5-10.1) mg/dl AST 64 H (15-37) U/L ALT 34 (12-78) U/L Alkaline Phosphatase 66 (45-117) U/L Total Protein 7.5 (6.4-8.2) gm/dl Albumin 3.9 (3.4-5.0) gm/dl Intake and Output 11/13/19 11/14/19 11/14/19 22:59 06:59 14:59 Other: Weight 63 kg Patient Weight 11/15/19 06:59 Weight 63 kg Diagnostic Findings Electrocardiogram: Sinus rhythm at 68 BPM, left bundle branch block. Similar to prior. Telemetry: Sinus rhythm, no significant arrhythmia since arrival in the emergency room PG Care Time/CCT Total # of Minutes Spent Total Time Spent with Patient: Total time spent is greater than 50% in coordination of care (as documented) at patient's floor/unit and/or counseling patient: Coding Level of Care Code 49353 Initial Inpt Care Lvl 3 Diagnoses ACS (acute coronary syndrome) I24.9 LBBB (left bundle branch block) I44.7 Aortic regurgitation I35.1
[2019-11-14] MEDS ORDERED: OPTIRAY 320 125ml IV PRN (13:51)
--- NOTE | 2019-11-14 14:15 | CT Scan Report ---
CT angio chest dissec wo/w con HISTORY: 79 years-old Female Aortic aneurysm, chest pain acute chest pain with aortic aneurysm COMPARISON: CTA of the chest 07/24/2019 TECHNIQUE: CTA of the chest was obtained both with and without the use of 118 mL Optiray 320 IV contr ast. 3-D coronal and sagittal MIPS were obtained from the axial data set and were submitted for revie w. All measurements were obtained according to NASCET criteria. A dose lowering technique was used co nsistent with the principals alexis CASTRO. FINDINGS: CTA: Moderate to marked cardiomegaly. No pericardial effusion. Extensive three-vessel distribution of anjelica nary arterial calcifications. Piriform dilation of the aortic root and ascending thoracic aorta redem onstrated measuring up to 4.7 cm in greatest dimension, unchanged. Moderate mixed plaque of the thora cic aorta with descending thoracic tortuosity. No dissection. Noncontrast scan demonstrates no intram ural hematoma. There is patency of the imaged great vessels. The pulmonary artery is opacified to the level of the subsegmental branches and demonstrates no filling defects to suggest pulmonary thromboe mbolic disease. CT CHEST: Unremarkable thyroid. Opacified aortopulmonary collaterals within the right hilum and subcarinal dist ributions are incidentally noted. Nonspecific mildly enlarged right hilar lymph node, 10 x 11 mm is u nchanged and likely benign. There is no pneumothorax or pleural effusion. Mild linear subsegmental bi basilar atelectasis/scarring. 8 mm solid nodule of the right middle lobe with central low attenuation suggestive of macroscopic fat is unchanged from comparison. Unchanged 4 mm solid nodule the basal ri ght lower lobe, image 2 7 series 7. The central airways appear patent. No acute process of the imaged upper abdomen. Soft tissues and breast parenchyma appear unremarkable. Degenerative changes of the spine and shoulders. IMPRESSION: 1. Cardiomegaly with unchanged fusiform aneurysmal dilation of the aortic root and ascending thoracic aorta measuring up to 4.7 cm. No evidence of aneurysm rupture or dissection. 2. No airspace consolidation or pleural effusion. 3. 8 mm solid nodule of the right middle lobe demonstrates areas of central low attenuation suggestiv e of macroscopic fat. This likely represents a pulmonary hamartoma. 4. Unchanged indeterminate 4 mm solid nodule of the basal right lower lobe. 5. No evidence of pulmonary thromboembolic disease. Please refer to below summary of Fleischner criteria recommendations for follow-up of incidental CT n odules (Radha Brown, Guidelines for management of small pulmonary nodules detected on CT scans: A sta tement from the Fleischner Society, Radiology 237: [phone].) SOLID NODULES Solitary nodule size: <6 mm * Low risk patients: no follow-up needed * high risk patients: optional CT at 12 months Solitary nodule size: 6-8 mm * Low risk patients: follow-up at 6-12 months, then consider further follow-up at 18-24 months * high risk patients: initial follow-up CT at 6-12 months and then at 18-24 months if no change Solitary nodule size: >8 mm * either low or high risk patients - consider follow-up CT at 3 months, and/or CT-PET, and/or biopsy Multiple nodules size: <6 mm * Low risk patients: no routine follow-up * high risk patients: optional CT at 12 months Multiple nodules size: 6-8 mm * Low risk patients: follow-up at 3-6 months, then consider further follow-up at 18-24 months * high risk patients: follow-up at 3-6 months, then at 18-24 months if no change Multiple nodules size: >8 mm * Low risk patients: follow-up at 3-6 months, then consider further follow-up at 18-24 months * high risk patients: follow-up at 3-6 months, then at 18-24 months if no change Note: newly detected indeterminate nodule in persons 35 years of age or older. * Low risk patients: minimal or absent history of smoking and/or other known risk factors * high risk patients: history of smoking or of other known risk factors (e.g. first degree relative with lung cancer, or exposure to asbestos, radon, uranium) * if a nodule up to 8 mm is partly solid or is ground glass further follow-up is required after 24 m onths to exclude possible slow growing adenocarcinoma (MAG) ACT 112: Negative or not required by law. The above report was generated using voice recognition software. It may contain grammatical, syntax o r spelling errors. Electronically signed by: Sundeep Henry M.D. 11/14/2019 2:14 PM
[2019-11-14] MEDS ORDERED: fentaNYL citrate 100 MCG/2 ML VIAL ONE (14:59)
[2019-11-14] MEDS ORDERED: HEPARIN (PORCINE) 1000 UNIT/ML 10 ML (CATH LAB USE ONLY) ONE (14:59)
[2019-11-14] MEDS ORDERED: NiCARDipine HCL INJ 2.5 MG/ML 10 ML AMP ONE (14:59)
[2019-11-14] MEDS ORDERED: NITROGLYCERIN/D5W 100MCG/ML 20ML SYR ONE (15:00)
[2019-11-14] MEDS ORDERED: MIDAZOLAM HCL 1 MG/ML 2ML VIAL ONE ×2 (15:00→16:47)
--- NOTE | 2019-11-14 15:33 | Emergency Department Note ---
Entered by Rolly Capellan acting as a scribe for Joselyn Arroyo MD History of Present Illness General Chief complaint: Referred by Doctor Stated complaint: NEEDS HEART CATH Source: patient Limitations: no limitations History of Present Illness Onset (ago): day(s) (couple days ago) Location: chest Radiation: back and other (shoulder) Maximum Pain Intensity: 0 Current Pain Intensity: 0 Quality: + other (pressure) Exacerbated By: + movement (SOB exacerbated with exertion) Associated symptoms: no nausea/vomiting (nausea) Treatments prior to arrival: other (aspirin) The patient is a 79 year old female who presents to the Emergency Room with complaints of intermittent chest pain starting a couple days ago. The patient states she has been having pressure in her chest. She states she two nights ago her pain went into her shoulder and back. She notes last night she had chest pain that radiated to her shoulder and back. She notes she took her isosorbide last night and the pain went away after 30 minutes. She notes her pain right now is 0/10. She states she has had intermittent SOB. She notes she has SOB with exertion. She states she took 4 aspirin today. She states she went to her PCP and was referred to the ED. The patient denies having nausea. Home Medications Home Medications Medication Instructions Recorded Confirmed Type calcium carbonate 600 mg (1,500 1 tab PO BID #180 tab 04/21/19 11/14/19 Rx mg)-vitamin D3 400 unit tablet atenolol 50 mg tablet 50 mg PO HS tab 10/07/19 11/14/19 History acetaminophen [Tylenol Arthritis 650 mg PO HS 11/14/19 11/14/19 History Pain] isosorbide mononitrate 30 mg PO HS 11/14/19 11/14/19 History losartan 100 mg PO QAM 11/14/19 11/14/19 History multivitamin,fc-eilj-fjqlhjmt 1 tab PO MOWEFR 11/14/19 11/14/19 History [Complete Multivitamin] Allergies Allergy/AdvReac Type Severity Reaction Status Date / Time No Known Allergies Allergy Verified 11/14/19 11:17 Past Med/Surg History Medical History Aortic regurgitation (Chronic) Benign essential hypertension (Chronic) Chronic hepatitis (Chronic) Dilated aortic root (Chronic) EKG, abnormal (Chronic) Generalized osteoarthritis of multiple sites (Chronic) Hyperlipidemia (Chronic) LBBB (left bundle branch block) Mitral regurgitation (Chronic) Postmenopausal osteoporosis (Chronic) Tricuspid regurgitation (Chronic) Vitamin D deficiency (Chronic) Surgical History H/O breast biopsy S/P colonoscopy S/P hysterectomy S/P knee replacement Family History Sister Coronary heart disease Father Coronary heart disease Social History Preferred Language: [place] Motor Patrol Operator Required: No Beliefs That Will Affect Care: None marital status: Current Living Situation: Spouse Feels Safe at Home: Yes Smoking Status: Never smoker Second Hand Exposure: Yes ; Hx Alcohol Use: Yes Hx Substance Use: No Review of Systems See HPI for pertinent positives & negatives. and A total of 10 systems reviewed and were otherwise negative Physical Exam Vital Signs Vital Signs - 24 hr 11/14/19 10:22 11/14/19 10:51 11/14/19 11:34 Temperature 36.4 C L Temperature Source Oral Pulse Rate 82 Pulse Rate [Apical] 64 Pulse Rhythm [Apical] Pulse Strength [Apical] Respiratory Rate 16 16 Respiratory Effort / Characteristics Respiratory Depth Blood Pressure 161/77 H Blood Pressure [Right Arm] 149/69 H Blood Pressure Mean 105 Blood Pressure Mean [Right Arm] 95 Blood Pressure Position [Right Arm] Pulse Oximetry 97 97 96 Oxygen Delivery Method Room Air Room Air Room Air Sepsis Recent Fever Within 48 Hours No Sepsis New/Unexplained Change in Mental Status No Sepsis Action Taken by Nursing No Action Required 11/14/19 12:47 11/14/19 13:21 11/14/19 14:25 Temperature Temperature Source Pulse Rate Pulse Rate [Apical] 65 66 66 Pulse Rhythm [Apical] Pulse Strength [Apical] Respiratory Rate 16 16 16 Respiratory Effort / Characteristics Respiratory Depth Blood Pressure Blood Pressure [Right Arm] 154/86 H 168/91 H 150/74 H Blood Pressure Mean Blood Pressure Mean [Right Arm] 108 116 99 Blood Pressure Position [Right Arm] Pulse Oximetry 96 95 96 Oxygen Delivery Method Room Air Room Air Room Air Sepsis Recent Fever Within 48 Hours Sepsis New/Unexplained Change in Mental Status Sepsis Action Taken by Nursing 11/14/19 14:37 Temperature Temperature Source Pulse Rate Pulse Rate [Apical] 63 Pulse Rhythm [Apical] Regular Pulse Strength [Apical] Normal Respiratory Rate 18 Respiratory Effort / Characteristics Non-Labored Respiratory Depth Normal Blood Pressure Blood Pressure [Right Arm] 154/75 H Blood Pressure Mean Blood Pressure Mean [Right Arm] 101 Blood Pressure Position [Right Arm] Lying Pulse Oximetry 97 Oxygen Delivery Method Room Air Sepsis Recent Fever Within 48 Hours Sepsis New/Unexplained Change in Mental Status Sepsis Action Taken by Nursing Vital signs reviewed. General: Well-appearing older female, in no significant distress. HEENT: No scleral icterus, PERRLA, neck supple. Atraumatic. Cardiovascular: Regular rate and rhythm, no extra sounds. Pulmonary: Clear to auscultation bilaterally, normal work of breathing. Abdomen: Soft, nontender, nondistended, positive bowel sounds. Musculoskeletal: Atraumatic, no peripheral edema. Neurologic: Patient awake alert and oriented x 3. Skin: Warm, dry, no rash Course Course 1040: The patient was evaluated in room C7, and a complete history and physical examination were performed. 1134: I discussed the patient's case with Dr. Montemayor - Cardiology. He states he found an EKG from July 2019 which showed the LBBB is the same as today. He states since the onset of her symptoms was about 12 hours ago, there is no need to call a heart alert. 1141: I discussed the patient's case with Dr. Myrick - [facility] Hospitalist. She will evaluate the patient for further management. Administered Medications Aspirin (Ecotrin Ectab) 81 mg PO [facility] Stop: 12/15/19 08:59 Last Admin: 11/15/19 08:17 Dose: 81 mg Documented by: [id number] Clopidogrel Bisulfate (Plavix) 75 mg PO [facility] Stop: 12/15/19 08:59 Last Admin: 11/15/19 08:17 Dose: 75 mg Documented by: [id number] Ioversol (Optiray 320 125ml) 118 ml IV ONCE PRN PRN Reason: Interaction Checking Stop: 11/18/19 13:50 Last Admin: 11/14/19 13:51 Dose: 118 ml Documented by: [id number] Isosorbide Mononitrate (Imdur Extended Rel) 30 mg PO [facility] Stop: 12/14/19 20:59 Last Admin: 11/15/19 20:23 Dose: 30 mg Documented by: [id number] Admin: 11/14/19 20:42 Dose: 30 mg Documented by: [id number] Losartan Potassium (Cozaar) 100 mg PO QAM [facility] Stop: 12/15/19 08:59 Last Admin: 11/15/19 08:17 Dose: 100 mg Documented by: [id number] Multivitamins/Minerals (Caltrate Plus) 1 tab PO BID [facility] Stop: 12/14/19 20:59 Last Admin: 11/15/19 20:22 Dose: 1 tab Documented by: [id number] Admin: 11/15/19 08:16 Dose: 1 tab Documented by: [id number] Admin: 11/14/19 20:42 Dose: 1 tab Documented by: [id number] Discontinued Medications Atenolol (Tenormin) 50 mg PO HS [facility] Stop: 12/14/19 20:59 Last Admin: 11/14/19 20:42 Dose: 50 mg Documented by: [id number] Clopidogrel Bisulfate (Plavix) Confirm Administered Dose 600 mg .ROUTE .STK-MED ONE Stop: 11/14/19 17:21 Last Admin: 11/14/19 17:46 Dose: 600 mg Documented by: [id number] Fentanyl Citrate (Fentanyl Citrate) Confirm Administered Dose 100 mcg .ROUTE .STK-MED ONE Stop: 11/14/19 15:00 Last Admin: 11/14/19 17:01 Dose: 100 mcg Documented by: [id number] Heparin Sodium (Porcine) (Heparin Sodium (Porcine)) Confirm Administered Dose 5,000 units .ROUTE .STK-MED ONE Stop: 11/14/19 12:12 Last Admin: 11/14/19 12:14 Dose: 5,000 units Documented by: [id number] Cosigned by: [id number] Heparin Sodium (Porcine) (Heparin Iv Bolus (Sports Announcer Use Only)) Confirm Administered Dose 10,000 units .ROUTE .STK-MED ONE Stop: 11/14/19 15:00 Last Admin: 11/14/19 17:47 Dose: 6,000 units Documented by: [id number] Heparin Sodium/Dextrose () 1 ea IV NOW STA; Protocol Stop: 11/14/19 11:32 Last Admin: 11/14/19 12:15 Dose: Not Given Documented by: [id number] Heparin Sodium/Sodium Chloride (Heparin/Nss 1000 Unit/500ml Flush Bag) Confirm Administered Dose 3,000 units IV .STK-MED ONE Stop: 11/14/19 15:01 Last Admin: 11/14/19 16:24 Dose: 3,000 units Documented by: [id number] Heparin Sodium/Dextrose (Heparin Sodium/Dextrose) 25,000 units in 500 mls @ 21 mls/hr IV .[id number] [facility]; Protocol Stop: 12/14/19 11:44 Last Titration: 11/14/19 18:55 Dose: 0 units/hr, 0 mls/hr Documented by: [id number] Cosigned by: [id number] Admin: 11/14/19 12:14 Dose: 1,050 units/hr, 21 mls/hr Documented by: [id number] Cosigned by: [id number] Sodium Chloride (Nss 1000ml) 1,000 mls @ 100 mls/hr IV .Q10H [facility] Stop: 11/15/19 01:29 Last Infusion: 11/15/19 02:01 Dose: 0 mls/hr Documented by: [id number] Admin: 11/14/19 18:42 Dose: 100 mls/hr Documented by: [id number] Midazolam HCl (Versed) Confirm Administered Dose 2 mg .ROUTE .STK-MED ONE Stop: 11/14/19 15:01 Last Admin: 11/14/19 16:24 Dose: 2 mg Documented by: [id number] Midazolam HCl (Versed) Confirm Administered Dose 2 mg .ROUTE .STK-MED ONE Stop: 11/14/19 16:48 Last Admin: 11/14/19 17:01 Dose: 2 mg Documented by: [id number] Nicardipine HCl (Cardene) Confirm Administered Dose 25 mg .ROUTE .STK-MED ONE Stop: 11/14/19 15:00 Last Admin: 11/14/19 16:24 Dose: 25 mg Documented by: [id number] Nitroglycerin/Dextrose (Nitroglycerin/D5w 100 Mcg/Ml 20ml Syringe) Confirm Administered Dose 2,000 mcg .ROUTE .STK-MED ONE Stop: 11/14/19 15:01 Last Admin: 11/14/19 16:24 Dose: 2,000 mcg Documented by: [id number] Critical Care Time Critical Care Time: Yes Total Critical Care Time: 35 I have personally spent 35 minutes of critical care time in the direct management of this patient. This includes bedside care, interpretation of diagnostic studies, and testing, discussion with consultants, patient, and family members, and other required patient management activities. This 35 minutes is in excess of all separately billable procedures. Medical Decision Making Differential Diagnosis Differential diagnoses includes but is not limited to acute coronary syndrome, myocardial infarction, pericarditis, pulmonary embolus, aortic dissection, pneumonia, pneumothorax, musculoskeletal, shingles, esophageal. Medical Records Attestation: I reviewed the patient's medical records. Home Medications Current Medication List: was personally reviewed by me Laboratory Data Attestation: I reviewed the patient's lab results. Result diagrams: 11/15/19 05:53 11/15/19 05:53 Lab Results 11/14/19 11/14/19 11/14/19 Range/Units 10:40 10:40 10:40 WBC 9.10 (4.8-10.8) K/uL RBC 4.30 (4.2-5.4) M/uL Hgb 13.6 (12.0-16.0) g/dL Hct 40.9 (37-47) % MCV 95.1 (80-100) fL MCH 31.6 (25-34) pg MCHC 33.3 (32-36) g/dL RDW Std Deviation 45.6 (36.4-46.3) fL RDW Coeff of Leanne 13.2 (11.5-14.5) % Plt Count 282 (130-400) K/uL MPV 10.2 (7.4-10.4) fL Immature Gran % (Auto) 0.2 % Neut % (Auto) 74.5 % Lymph % (Auto) 17.6 % Rock % (Auto) 7.1 % Eos % (Auto) 0.4 % Baso % (Auto) 0.2 % Immature Gran # (Auto) 0.02 (0.00-0.02) K/uL Neut # (Auto) 6.77 H (1.4-6.5) K/uL Lymph # (Auto) 1.60 (1.2-3.4) K/uL Rock # (Auto) 0.65 H (0.11-0.59) K/uL Eos # (Auto) 0.04 (0-0.5) K/uL Baso # (Auto) 0.02 (0-0.2) K/uL PT 9.8 (9.0-12.0) Seconds INR 1.0 (0.9-1.1) APTT 27.6 (21.0-31.0) Seconds PTT Ratio 1.0 Sodium 138 (136-145) mmol/L Potassium 4.2 (3.5-5.1) mmol/L Chloride 104 (98-107) mmol/L Carbon Dioxide 31 (21-32) mmol/L Anion Gap 3.0 (3-11) BUN 17 (7-18) mg/dl Creatinine 0.91 (0.6-1.2) mg/dl Est Cr Clr Drug Dosing 42.6 ml/min Est GFR ( Amer) 69.1 Est GFR (Non-Af Amer) 59.6 BUN/Creatinine Ratio 18.9 (10-20) Glucose 95 (70-99) mg/dl Calcium 9.6 (8.5-10.1) mg/dl Total Bilirubin 1.8 H (0.2-1) mg/dl AST 64 H (15-37) U/L ALT 34 (12-78) U/L Alkaline Phosphatase 66 (45-117) U/L Troponin I 5.150 H* (0-0.045) ng/ml Total Protein 7.5 (6.4-8.2) gm/dl Albumin 3.9 (3.4-5.0) gm/dl Globulin 3.6 (2.5-4.0) gm/dl Albumin/Globulin Ratio 1.1 (0.9-2) Lipase 576 H (73-393) U/L Imaging Data Radiologist's Impression: Radiology results as stated below per my review and the radiologist's interpretation: XR chest 1V portable CLINICAL HISTORY: 79 years-old Female presenting with Chest Pain. TECHNIQUE: Portable upright AP view of the chest was obtained. COMPARISON: CTA chest from 07/24/2019. FINDINGS: Atherosclerosis of the aortic arch. Cardiac silhouette enlarged. Minimal basilar opacities. No pleural effusion or pneumothorax. Degenerative changes of the thoracic spine. Osteopenia. Upper abdomen normal. IMPRESSION: 1. Cardiomegaly. 2. Minimal bibasilar atelectasis or scarring. No other convincing evidence of acute cardiopulmonary disease. ACT 112: Negative or not required by law. Electronically signed by: Mickey Rust M.D. 11/14/2019 11:18 AM ECG Data Attestation: I personally reviewed and interpreted this ECG as follows: Indication: + chest pain Rate (beats per minute): 68 Rhythm: + sinus rhythm ECG Intervals/blocks: + First degree AV block, + Left bundle branch block and + Prolonged QT (at 495) ECG [place]: + Left axis deviation ECG Findings: + Other (repolarization abnormality in lateral leads) Additional Comments: An order for cardiac monitoring was placed and the patient was found to be in a sinus rhythm at about 70 bpm with a first-degree AV block. Blood Pressure Blood Pressure Findings: Elevated blood pressure Blood Pressure Disposition: further management by hospitalist MDM Narrative This patient was evaluated and appeared to be in no significant distress. IV access was obtained and laboratory work was drawn. The patient was placed on the electronic device monitor and found to be in a sinus rhythm. EKG confirms sinus rhythm with first-degree AV block and left bundle branch block. Patient was pain-free at the time of my evaluation. She did receive aspirin prior to arrival. Chest x-ray was obtained and is negative for acute process. Patient's laboratory work reveals a positive troponin at 5.15. IV heparin drip was ordered. Case was reviewed with Dr. Russo of cardiology who ordered a CT scan of the chest to rule out aortic dissection given the patient's history of thoracic aortic aneurysm. This study is stable without evidence of acute dissection. Patient was taken to the catheterization lab for further management. Please see cardiology's notes for further details. The hospitalist service was consulted for admission. Impression & Plan ACS (acute coronary syndrome) Discharge Plan Visit Data *Final* Discharge Date/Time: 11/14/19 14:25 Chief Complaint: Referred by Doctor Stated Complaint: NEEDS HEART CATH ED Provider: Joselyn Arroyo Discharge Problem: ACS (acute coronary syndrome) Patient Disposition: Admitted As Inpatient Discharge Instructions Interventions: ED Discharge Assessment Last Done: 11/14/19 14:25 The scribe's documentation has been prepared under my direction and personally reviewed by me in its entirety. I confirm that the note above accurately reflects all work, treatment, procedures, and medical decision making performed by me.
[2019-11-14] MEDS ORDERED: CLOPIDOGREL BISULFATE 300 MG TAB ONE (17:20)
--- NOTE | 2019-11-14 17:39 | Pre Anesthesia Assessment ---
Date of Service November 14, 2019 Pre Sedation Assessment Vital Signs Temp Pulse Pulse Resp BP BP Pulse Ox 11/14/19 14:37 63 18 154/75 H 97 11/14/19 14:25 66 16 150/74 H 96 11/14/19 13:21 66 16 168/91 H 95 11/14/19 12:47 65 16 154/86 H 96 11/14/19 11:34 64 16 149/69 H 96 11/14/19 10:51 97 11/14/19 10:22 97.5 F L 82 16 161/77 H 97 Cardiovascular RRR, no murmur, no edema Respiratory normal respiratory effort, lungs clear to auscultation Pre-Sedation Airway Assessment Smoking Status: Never smoker Hx Sleep Apnea: No Hx Difficult Intubation: No Short, Thick Neck: No Thyromental Distance: > or= 3.5 Finger Breadths Oral Cavity: + WNL Mallampati Class: II ASA: ASA2 NPO Status Date of Last Intake of Fluids: 11/14/19 Time of Last Intake of Fluids: 06:00 Date of Last Intake of Solid Food: 11/13/19 Time of Last Intake of Solid Foods: 19:00 Procedure Planning Contraindications for Sedation: none Current Medications Reviewed: Yes Notes The planned sedation has been discussed with the patient. Informed Consent was obtained. I have identified the patient, determined the appropriateness of sedation and have assessed the patient immediately prior to the procedure. All medicine(s) and interventions are by my order.
--- NOTE | 2019-11-14 17:40 | Post Anesthesia Assessment ---
Date of Service November 14, 2019 Post Sedation Assessment Vital Signs Temp Pulse Pulse Resp BP BP Pulse Ox 11/14/19 14:37 63 18 154/75 H 97 11/14/19 14:25 66 16 150/74 H 96 11/14/19 13:21 66 16 168/91 H 95 11/14/19 12:47 65 16 154/86 H 96 11/14/19 11:34 64 16 149/69 H 96 11/14/19 10:51 97 11/14/19 10:22 97.5 F L 82 16 161/77 H 97 Recovery Score Activity: Moves 4 extremities Respiration: Deep Breath/Cough Circulation: +/-20% PreAnes Value Consciousness: Fully Awake Oxygen Saturation: O2 needed for >90% Discharge Sedation Level of Care: Fast Track Phase II Post Sedation Plan On clinical assessment, the patient appears to have tolerated the sedation without complications. Patient is recovering as anticipated. Patient will continue to be monitored by nursing and may be discharged when sedation discharge criteria are met per below protocol. Upon Completions of procedure up to 15 minutes continue every 5 minute vital signs and the P.A.R. score; then discharge to a Phase I or Fast Track to Phase II per the following guidelines: * Discharge Patient to appropriate Phase II area if PAR is 8 or greater or return to pre- procedure baseline. The post - procedure orders will be as directed. * If PAR score is less than 8 or not return to pre-procedure baseline then patient will follow Phase I monitoring till PAR is reached for Phase II. The Phase I may be done in procedure room or may call to secure a Phase I area. * If naloxone or flumazenil are used for reversal, hold in Phase I for continued monitoring from when last reversal dose was given for a minimum of 60 minutes or longer pending the nurse and/or physician discretion of patient condition before discharge to Phase II. Please call the Sedation Physician to re-evaluate and complete post-note for discharge to Phase II area. Do NOT discharge from procedure sedation or Phase 1 until post- sedation evaluation note is complete by procedure /sedation MD Sedation Discharge Instructions to be given to the patient at discharge to home.
--- NOTE | 2019-11-14 17:43 | Cardiac Catheterization ---
[facility] Data: Product Inspection Supervisor Cardiac Status Clinical evaluation leading to the procedure CAD Presenation: Non STEMI Anginal Classification: CCS IV Heart Failure: No Cardiogenic Shock within 24 Hours: No Cardiac Arrest within 24 Hours: No Imaging Studies Past 6 Months: Yes Stress Studies Past 6 Months: No Diagnostic Physicians Name: Win Ruiz MD Status: Urgent Closure Device Percutaneous Entry Location: Radial Closure Device: Radial Band Recommendations: PCI without planned CABG PCI Indication: PCI for high risk Non-AUSTIN Lesion Segment Name: mid LAD Culprit Artery: Yes Stenosis Prior to Rx (%): 90 Chronic Total Occlusion: No IVUS: No FFR: No Pre-Procedure MEGA Flow: 3 Previously Treated Lesion: No Lesion Complexity: High/C Lesion Length (mm): 25 Thrombus Present: Yes Bifurcation Lesion: No Guidewire Across Lesion: Stenosis Post-Procedure (%): 0 Post-Procedure MEGA Flow: 3 Devices(s) Deployed: Yes Yes Intraprocedure Events Significant Disection: No Perforation: No Cardiac Cath Procedure Full Procedure Date November 14, 2019 Pre-Procedure Diagnosis Pre-Procedure Diagnosis: Non STEMI AUC Score AUC Score: 8 Post-Procedure Diagnosis Post-Procedure Diagnosis: Severe CAD, Successful PCI and Elevated Intracardiac Pressures Procedure(s) Performed Procedure(s) Performed: Coronary Angiography, Left Heart Cath and Drug Eluting Stent Morning Show Newscast Producer Win Ruiz MD [employer] Parker(s) [place] Estimated Blood Loss Estimated Blood Loss: 20 Medication(s) Medication(s): Clopidogrel, Fentanyl, Heparin, Lidocaine 1%, Nicardipine, Nitroglycerin and Versed Summary of Findings Indication: High risk NSTEMI Access: 6 Fr slender right radial artery under ultrasound guidance Catheters: Castell, JL 4.5, EBU 4 guide Findings: No left main, separate LAD and circumflex ostium LAD -heavily calcified, medium caliber, mild to moderate diffuse proximal to mid disease, 90+% mid LAD, distal diffuse disease as wraps around apex. First diagonal with mild to moderate disease. Second diagonal with 60% ostial and proximal disease. Circumflex -heavily calcified, medium caliber, mild diffuse mid segment disease. Small distal circumflex with 40% stenosis just after takeoff of OM 2. Medium caliber OM 2 chronically occluded at the ostium. Fills retrograde via left to left collaterals. RCA -large caliber vessel, heavily calcified, 60 to 70% latemid to distal stenosis. Mild diffuse PDA and PLB disease. LVEDP -12 -- PCI -- Antithrombotic therapy: Heparin, clopidogrel Procedure: Left main cannulated with EBU 4.0 guide Scoop Operator 50 wire passed across lesion into distal vessel Mid LAD lesion predilated with 2.0 and 2.5 compliant balloons Unable to pass stent across calcified mid LAD lesion Mid LAD predilated again with 2.5 and 2.75 NC balloons With aid of a telescope support catheter a 2.25 x 18 mm Cisco drug-eluting stent delivered across mid LAD stenosis A second DARLINE (2.25 x 12 mm Moo) placed after second diagonal to mid LAD overlapping proximal aspect of initial stent Stents post-dilated with stent balloon IC vasodilators administered for spasm Post procedure MEGA 3 flow, stent well expanded with minimal residual stenosis and no apparent cardiac complications. Arterial Closure: TR band Summary: 1. Severe heavily calcified multi-vessel coronary artery disease -90+% mid LAD 100% chronic ostial OM 2 occlusion. Fills retrograde via left to left collaterals. 60 to 70% latemid to distal RCA stenosis 2. Normal intracardiac filling pressure 3. Successful PCI of mid LAD with 2 overlapping drug-eluting stents (2.25 x 12 mm, 2.25 x 18 mm Moo). Recommendations: To PCU for continued monitoring Loaded with clopidogrel 600 mg in Product Inspection Supervisor Continue dual-antiplatelet therapy for at least 1 year Continue statin, and ASCVD risk factor modification Consult cardiac Rehab Medically manage residual coronary artery disease. If refractory symptoms in the future FFR/PCI of heavily calcified mid to distal RCA could be considered. Hemodynamics Rest Ao:: 149/68/102 Final Ao: 158/73/114 LV: 148/12 Recommendations Recommendations: PCI without planned CABG Specimens Specimens: None Radiation Exposure (mGy) 2768 Contrast (mls) 135 Fluids (cc crystalloids) Fluids (cc crystalloids): 200 Drains Drains: none Anesthesia moderate Procedural Complication(s) None Disposition PCU I attest to the content of the Intraoperative Record and any orders documented therein. Any exceptions are noted below. [facility] Card Cath Procedure Codes Cardiac Catheterization Procedure 1: Cardiovascular Cath Procedures: 95079 Coronaries and LHC (+/-LV) Therapeutic Services & Ancillary Proc Procedure 1: Cardiovascular Tx and Anc Procedures: 74780 Ultrasonic Guidance Vascular Access Moderate Sedation Procedure 1: Sedation/Anesthesia: 03792 Mod Sedation by the same physician;Init15 Min Child Age 5 & Up Procedure 2: Sedation/Anesthesia: 85223 Mod Sedation by the same physician; Ea [id number] Minutes Stenting Procedure 1: Cardiovascular Stent Procedures: 15821 Perc transcatheter placement of intracoronary stent(s), with ang PG Care Time/CCT Total # of Minutes Spent Total Time Spent with Patient: Total time spent is greater than 50% in coordination of care (as documented) at patient's floor/unit and/or counseling patient:
[2019-11-14] MEDS ORDERED: NITROGLYCERIN SL 0.4 MG/TAB TAB SL PRN (17:46)
[2019-11-14] MEDS ORDERED: ACETAMINOPHEN 325 MG TAB PO PRN ×2 (17:46→17:59)
[2019-11-14] MEDS ORDERED: ONDANSETRON INJ 2 MG/ML 2 ML VIAL IV PRN ×2 (17:46→17:59)
[2019-11-14] MEDS ORDERED: ALUMINUM/MAGNESIUM SUSP 30 ML UDC PO PRN (17:59)
[2019-11-14] MEDS ORDERED: MAGNESIUM HYDROXIDE SUSP 30 ML UDC PO PRN (17:59)
[2019-11-14] MEDS ORDERED: POLYETHYLENE (MIRALAX) 17 GM PACK PO PRN (17:59)
[2019-11-14] MEDS ORDERED: SODIUM CHLORIDE 0.9% 1000ML 1,000 ML IV SCH (18:00)
[2019-11-14 18:59] LABS: Prothrombin Time 10.6 Seconds (9.0-12.0)
[2019-11-14 19:20] LABS: Thyroid Stimulating Hormone 3.43 uIu/ml (0.300-4.500); Troponin I 5.68 ng/ml (0-0.045)
[2019-11-14] MEDS: ISOSORBIDE MONO EXTENDED REL 30 MG TABCR PO SCH (20:42)
[2019-11-14] MEDS: CALCIUM 600MG + VIT D 400 IU TAB PO SCH (20:42)
[2019-11-14] MEDS ORDERED: ATENOLOL 50 MG TABLET PO SCH (21:00)
[2019-11-15 06:40] LABS: Basophils # (auto) 0.01 K/uL (0-0.2); Basophils % (auto) 0.1 %; Eosinophils # (auto) 0.03 K/uL (0-0.5); Eosinophils % (auto) 0.4 %; Hemoglobin 11.4 g/dL (12.0-16.0); Immature Granulocytes # (auto) 0.01 K/uL (0.00-0.02); Immature Granulocytes % (auto) 0.1 %; Lymphocytes # (auto) 1.37 K/uL (1.2-3.4); Lymphocytes % (auto) 18.4 %; Mean Corpuscular Hgb Conc 32.6 g/dL (32-36); Mean Corpuscular Volume 95.1 fL (80-100); Mean Platelet Volume 10.5 fL (7.4-10.4); Monocytes # (auto) 0.66 K/uL (0.11-0.59); Monocytes % (auto) 8.9 %; Neutrophils # (auto) 5.36 K/uL (1.4-6.5); Neutrophils % (auto) 72.1 %; Platelet Count 244 K/uL (130-400); RDW Coefficient of Variation 13.1 % (11.5-14.5); RDW Standard Deviation 45.3 fL (36.4-46.3); Red Blood Count 3.68 M/uL (4.2-5.4); White Blood Count 7.44 K/uL (4.8-10.8)
[2019-11-15 06:54] LABS: Partial Thromboplastin Time 27.3 Seconds (21.0-31.0); Prothrombin Time 10.3 Seconds (9.0-12.0)
[2019-11-15 07:09] LABS: Albumin Level 2.9 gm/dl (3.4-5.0); BUN Creatinine Ratio 22.6 (10-20); Calcium 8.7 mg/dl (8.5-10.1); Creatinine Clr Calc Pharmacy 53.3 ml/min; Est GFR (African American) 88.7; Est GFR (Non-African American) 76.5; Potassium 4.1 mmol/L (3.5-5.1)
[2019-11-15 07:21] LABS: Bilirubin,Total 2.2 mg/dl (0.2-1); Total Protein 5.9 gm/dl (6.4-8.2); Troponin I 6.69 ng/ml (0-0.045)
[2019-11-15 07:25] LABS: Estimated Average Glucose 123 mg/dl; Hemoglobin A1C 5.9 % (4.5-5.6)
--- NOTE | 2019-11-15 07:55 | Electrocardiogram Report ---
Test Reason : Blood Pressure : / mmHG Vent. Rate : 068 BPM Atrial Rate : 068 BPM P-R Int : 202 ms QRS Dur : 150 ms QT Int : 466 ms P-R-T Axes : 064 -56 105 degrees QTc Int : 495 ms Sinus rhythm with Premature atrial complexes in a pattern of bigeminy Left axis deviation Left bundle branch block Abnormal ECG When compared with ECG of 11-SEP-2017 15:47, Premature atrial complexes are now Present Left bundle branch block is now Present Minimal criteria for Anterior infarct are no longer Present Confirmed by Renato Montemayor ([id number]) on 11/15/2019 7:54:53 AM Referred By: Confirmed By:Renato Montemayor
--- NOTE | 2019-11-15 08:15 | Hospitalist Progress Note ---
Date of Service November 15, 2019 Assessment & Plan (1) ACS (acute coronary syndrome): Continue admit to PCU on telemetry for further evaluation of unstable angina(exertional chest discomfort, and abnormal nuclear stress test) Multivessel coronary artery disease post PCI to mid LAD.Denies chest pain, troponin has peaked. Electrically stable on telemetry. New LAD distribution wall motion abnormality on echo. AI unchanged from prior report. Normal estimated biventricular filling pressures No heart failure on exam. 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 Vital signs every 4 hours heparin drip discontinued by cardiology s/p cardiac cath. Heart healthy diet DVT prophylaxis pt is ambulatory Continue Asa Continue DAPT with aspirin l81 mg PO daily and Clopidogrel 75 mg PO daily. Continue losartan Transition atenolol to Toprol-XL 50 mg daily Start statin Continue long-acting nitrate Intervention to RCA only if refractory symptoms in the future. Full code (2) LBBB (left bundle branch block): as the above (3) Aortic regurgitation: She has moderate to severe mitral regurgitation as well as a dilated aortic root. CT scan to ruled out dissection. (4) Hyperlipidemia: Fasting lipid panel pending. Patient is not taking statins. (5) Benign essential hypertension: Monitor blood pressure closely. Transition Atenolol to Toprol X isosorbide mononitrate 30 mg p.o. nightly, Losartan 100 mg p.o. every morning Admission and Anticipated Discharge Date Admission Date: November 14, 2019 Today afternoon or tomorrow AM. Ambulate in the hallways. Subjective Pt seen and examined at the bedside. Pt underwent cardiac cath yesterday. Tolerated procedure well. Good PO intake today, resting in the bed. Pt denies fever, chills, chest pain, SOB, abdominal pain frequency and urgency. Left wrist bruise is improving and less swollen. Keeps ice on it. Review of Systems Review of Systems: All systems reviewed & are unremarkable except as noted in HPI & below Physical Exam Constitutional: WD/WN, vitals as above well developed Eyes: PERRL, conjunctivae normal, anicteric sclerae ENMT: Mallampati Class: II Neck: trachea midline, no thyromegaly Respiratory: normal respiratory effort, lungs clear to auscultation Cardiovascular: RRR, no murmur, no edema Gastrointestinal (Abdomen): normal bowel sounds, soft, nontender, no hepatosplenomegaly Musculoskeletal: no cyanosis or clubbing, extremities motor strength 5/5 Skin: no rashes, warm and dry Neurologic: patellar DTR's 2+ bilat, sensation intact Psychiatric: A+Ox3, euthymic affect Lymphatic: no cervical or axillary lymphadenopathy Results & Data ([facility]) Vital Signs (Past 12 Hours) Vital Signs Temp Pulse Pulse Resp BP Pulse Ox 11/15/19 07:45 36.6 C 64 20 113/65 97 11/15/19 03:11 36.7 C 69 18 109/64 92 11/14/19 23:39 36.4 C L 60 17 95/54 L 92 11/14/19 23:00 62 11/14/19 20:30 68 18 124/63 95 PG Care Time/CCT Total # of Minutes Spent Total Time Spent with Patient: Total time spent is greater than 50% in coordination of care (as documented) at patient's floor/unit and/or counseling patient: Coding Level of Care Code 81497 Subseq Hosp Care Lvl 3 Diagnoses ACS (acute coronary syndrome) I24.9 LBBB (left bundle branch block) I44.7 Aortic regurgitation I35.1 Hyperlipidemia E78.5 Benign essential hypertension I10
[2019-11-15] MEDS: CALCIUM 600MG + VIT D 400 IU TAB PO SCH ×2 (08:16→20:22)
[2019-11-15] MEDS: LOSARTAN POTASSIUM 50 MG TAB PO SCH (08:17)
[2019-11-15] MEDS: CLOPIDOGREL BISULFATE 75 MG TAB PO SCH (08:17)
[2019-11-15] MEDS: ASPIRIN 81 MG ECTAB PO SCH (08:17)
--- NOTE | 2019-11-15 09:09 | XCELERA ---
[id number] \\[id number]\[id number]
--- NOTE | 2019-11-15 11:30 | Cardiology Progress Note ---
Date of Service November 15, 2019 Assessment & Plan (1) ACS (acute coronary syndrome): Multivessel coronary artery disease post PCI to mid LAD 2. Ischemic cardiomyopathy, EF 40 to 45% with LAD distribution wall motion 3. 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 Hypertension Patient stable post PCI to LAD yesterday. No recurrent chest pain, troponin has peaked. Electrically stable on telemetry New LAD distribution wall motion abnormality on echo. AI unchanged from prior report. Normal estimated biventricular filling pressures No heart failure on exam. Diffuse ecchymoses at access site but neurovascularly intact distally Post procedure labs stable Continue DAPT with aspirin, clopidogrel Continue losartan Transition atenolol to Toprol-XL 50 mg daily Start statin Continue long-acting nitrate Intervention to RCA only if refractory symptoms in the future. Up walking halls later today. If feeling well could be discharged later this afternoon or tomorrow a.m from a heart standpoint. Follow-up with Dr. Welch in 2 to 3 weeks Admission and Anticipated Discharge Date Admission Date: November 14, 2019 Subjective Events Feeling well today. No recurrent chest pain. Breathing stable. Mild wrist discomfort. Telemetry reviewedno events Review of Systems Review of Systems: All systems reviewed & are unremarkable except as noted in HPI & below Physical Exam Physical Exam: General: Comfortable, no acute distress HEENT: Sclerae anicteric Lungs: Clear to auscultation bilaterally Cardiac: Regular rate and rhythm, 2/6 systolic ejection murmur, diastolic aortic murmur. No JVD. Abdomen: Soft, nontender, nondistended, positive bowel sounds. Extremities: Warm, well perfused, no edema. Right radial artery access site tender with diffuse ecchymosis. Distal pulse and sensation intact. Neuro: Nonfocal Psych: Alert orient x3, normal affect and mood Results & Data ([facility]) Vital Signs (Past 12 Hours) Vital Signs Temp Pulse Pulse Resp BP Pulse Ox 11/15/19 08:00 61 11/15/19 07:45 97.9 F 64 20 113/65 97 11/15/19 03:11 98.1 F 69 18 109/64 92 11/14/19 23:39 97.5 F L 60 17 95/54 L 92 PG Care Time/CCT Total # of Minutes Spent Total Time Spent with Patient: Total time spent is greater than 50% in coordination of care (as documented) at patient's floor/unit and/or counseling patient: Coding Level of Care Code 80506 Subseq Hosp Care Lvl 3 Diagnoses ACS (acute coronary syndrome) I24.9
--- NOTE | 2019-11-15 19:43 | Electrocardiogram Report ---
Test Reason : Blood Pressure : / mmHG Vent. Rate : 064 BPM Atrial Rate : 064 BPM P-R Int : 228 ms QRS Dur : 148 ms QT Int : 454 ms P-R-T Axes : 072 -68 103 degrees QTc Int : 468 ms Sinus rhythm with 1st degree A-V block with Premature atrial complexes Left axis deviation Left bundle branch block Abnormal ECG When compared with ECG of 14-NOV-2019 10:41, T wave inversion no longer evident in Anterior leads Confirmed by Dominguez Barrios ([id number]) on 11/15/2019 7:43:16 PM Referred By: REFERRED SELF Confirmed By:Dominguez Barrios
[2019-11-15] MEDS: ISOSORBIDE MONO EXTENDED REL 30 MG TABCR PO SCH (20:23)
[2019-11-16 05:58] LABS: Basophils # (auto) 0.02 K/uL (0-0.2); Basophils % (auto) 0.3 %; Eosinophils # (auto) 0.04 K/uL (0-0.5); Eosinophils % (auto) 0.6 %; Hematocrit (blood only) 34.5 % (37-47); Hemoglobin 11.8 g/dL (12.0-16.0); Immature Granulocytes # (auto) 0.01 K/uL (0.00-0.02); Immature Granulocytes % (auto) 0.1 %; Lymphocytes # (auto) 1.69 K/uL (1.2-3.4); Lymphocytes % (auto) 25.3 %; Mean Corpuscular Hemoglobin 31.6 pg (25-34); Mean Corpuscular Hgb Conc 34.2 g/dL (32-36); Mean Corpuscular Volume 92.5 fL (80-100); Monocytes # (auto) 0.79 K/uL (0.11-0.59); Monocytes % (auto) 11.8 %; Neutrophils # (auto) 4.14 K/uL (1.4-6.5); Neutrophils % (auto) 61.9 %; Platelet Count 248 K/uL (130-400); RDW Standard Deviation 44.1 fL (36.4-46.3); Red Blood Count 3.73 M/uL (4.2-5.4); White Blood Count 6.69 K/uL (4.8-10.8)
[2019-11-16 06:03] LABS: Partial Thromboplastin Time 27.4 Seconds (21.0-31.0); Prothrombin Time 9.8 Seconds (9.0-12.0)
[2019-11-16 06:25] LABS: Albumin Level 3.3 gm/dl (3.4-5.0); Calcium 8.8 mg/dl (8.5-10.1); Est GFR (African American) 84.5; Est GFR (Non-African American) 72.9; Potassium 3.9 mmol/L (3.5-5.1)
[2019-11-16 06:27] LABS: Globulin 3.3 gm/dl (2.5-4.0); Total Protein 6.6 gm/dl (6.4-8.2)
[2019-11-16] MEDS: CALCIUM 600MG + VIT D 400 IU TAB PO SCH (08:16)
[2019-11-16] MEDS: CLOPIDOGREL BISULFATE 75 MG TAB PO SCH (08:16)
[2019-11-16] MEDS: LOSARTAN POTASSIUM 50 MG TAB PO SCH (08:16)
[2019-11-16] MEDS: ASPIRIN 81 MG ECTAB PO SCH (08:16)
--- NOTE | 2019-11-16 08:52 | Hospitalist Progress Note ---
Date of Service November 16, 2019 Assessment & Plan (1) ACS (acute coronary syndrome): Continue admit to PCU on telemetry for further evaluation of unstable angina(exertional chest discomfort, and abnormal nuclear stress test) Patient is eager to go home. Feels much better today. Follow-up with cardiology Dr. Welch within a 2 to 3 weeks. Multivessel coronary artery disease post PCI to mid LAD.Denies chest pain, troponin has peaked. Electrically stable on telemetry. New LAD distribution wall motion abnormality on echo. AI unchanged from prior report. Normal estimated biventricular filling pressures No heart failure on exam. Diffuse ecchymoses at access site but neurovascularly intact distally-resolving. 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 Vital signs every 4 hours heparin drip discontinued by cardiology s/p cardiac cath. Heart healthy diet DVT prophylaxis pt is ambulatory Continue Asa Continue DAPT with aspirin 81 mg PO daily and Clopidogrel 75 mg PO daily. Continue losartan Transition atenolol to Toprol-XL 50 mg daily Start statin Continue long-acting nitrate Intervention to RCA only if refractory symptoms in the future. Full code (2) LBBB (left bundle branch block): as the above (3) Aortic regurgitation: She has moderate to severe mitral regurgitation as well as a dilated aortic root. CT scan to ruled out dissection. (4) Hyperlipidemia: Fasting lipid panel pending. Patient is not taking statins. (5) Benign essential hypertension: Monitor blood pressure closely. Transition Atenolol to Toprol X isosorbide mononitrate 30 mg p.o. nightly, Losartan 100 mg p.o. every morning Admission and Anticipated Discharge Date Admission Date: November 14, 2019 Subjective Patient is eager to go home. Feeling well today. No recurrent chest pain. Breathing stable. Mild wrist discomfort. Bruising over right wrist almost resolved. Telemetry reviewedno events. Good p.o. intake. Patient denies fever, chills, chest pain, shortness of breath, abdominal pain, frequency, urgency. Review of Systems Review of Systems: All systems reviewed & are unremarkable except as noted in HPI & below Physical Exam Constitutional: WD/WN, vitals as above well developed Eyes: PERRL, conjunctivae normal, anicteric sclerae ENMT: Mallampati Class: II Neck: trachea midline, no thyromegaly Respiratory: normal respiratory effort, lungs clear to auscultation Cardiovascular: RRR, no murmur, no edema Gastrointestinal (Abdomen): normal bowel sounds, soft, nontender, no hepatos plenomegaly Musculoskeletal: no cyanosis or clubbing, extremities motor strength 5/5 Skin: no rashes, warm and dry Neurologic: patellar DTR's 2+ bilat, sensation intact Psychiatric: A+Ox3, euthymic affect Lymphatic: no cervical or axillary lymphadenopathy Results & Data ([facility]) Vital Signs (Past 12 Hours) Vital Signs Temp Pulse Pulse Resp BP Pulse Ox 11/16/19 06:40 36.3 C L 78 18 118/80 96 11/16/19 02:46 36.5 C 65 17 128/75 95 11/15/19 23:31 36.4 C L 69 18 106/53 L 96 11/15/19 22:56 67 PG Care Time/CCT Total # of Minutes Spent Total Time Spent with Patient: Total time spent is greater than 50% in coordination of care (as documented) at patient's floor/unit and/or counseling patient: Coding Level of Care Code 05145 Subseq Hosp Care Lvl 3 Diagnoses ACS (acute coronary syndrome) I24.9 LBBB (left bundle branch block) I44.7 Aortic regurgitation I35.1 Hyperlipidemia E78.5 Benign essential hypertension I10
[2019-11-16] MEDS ORDERED: METOPROLOL SUCC 25MG EXT REL TAB PO SCH ×2 (09:00→12:15)
[2019-11-16] MEDS ORDERED: METOPROLOL SUCC 25MG EXT REL TAB PO ONE (12:45)
[2019-11-16] MEDS ORDERED: ATORVASTATIN 40 MG TAB PO SCH (14:15)
--- NOTE | 2019-11-16 14:40 | Discharge Summary ---
Date of Service November 16, 2019 Admission HPI Per Admitting Provider The patient is an 79 years old female with past medical history of mitral regurgitation, hyperlipidemia, dilated aortic arch, chronic hepatitis, hypertension, aortic regurgitation, tricuspid regurgitation, who presents to the emergency room with a complaint of intermittent chest pain that started yesterday, resolved and occurred again today in a.m. Patient reports that pain was radiating into her shoulder and her back. Patient was taking her medicine and she took last night her isosorbide and pain resolved after 30 minutes. After arrival to the emergency room patient reported that her pain was 0. Patient reports that she has shortness of breath with exertion and she took 4 baby aspirins today. Patient denies fever, chills, chest pain at the present time ,shortness of breath, abdominal pain, frequency, urgency. Labs are reviewed which shows WBCs of 9.10, hemoglobin 13.6, hematocrit 40.9, platelets 282, PT 10.6, INR 1, sodium 138, potassium 4.2, chloride 104, carbon dioxide 31, anion gap 3, BUN 17, creatinine 0.91, GFR 59.6, A1c pending, calcium 9.6, AST 64, ALT 34, troponin 5.150, BNP 5888, TSH 3.43.Chest x-ray shows cardiomegaly, minimal basilar atelectasis or scarring. No other convincing evidence of acute cardiopulmonary disease. 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 No evidence of aneurysm rupture or dissection. No airspace consolidation or pleural effusion. 8 mm solid nodule of the right middle lobe demonstrates area of central low attenuation suggestive of micro scopic fat. 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 Unchanged indeterminate 4 mm solid nodule of the basal right lower lobe. No evidence of pulmonary thromboembolic disease. Decision was made to admit patient to PCU on telemetry for further treatment of intermittent chest pain and to rule out acute coronary syndrome. Principal Diagnosis none Discharge Exam Constitutional WD/WN, vitals as above well developed Eyes PERRL, conjunctivae normal, anicteric sclerae ENMT Mallampati Class: II Neck trachea midline, no thyromegaly Respiratory normal respiratory effort, lungs clear to auscultation Cardiovascular RRR, no murmur, no edema Gastrointestinal (Abdomen) normal bowel sounds, soft, nontender, no hepatosplenomegaly Musculoskeletal no cyanosis or clubbing, extremities motor strength 5/5 Skin no rashes, warm and dry Neurologic patellar DTR's 2+ bilat, sensation intact Psychiatric A+Ox3, euthymic affect Lymphatic no cervical or axillary lymphadenopathy Discharge Data Allergies Allergy/AdvReac Type Severity Reaction Status Date / Time No Known Allergies Allergy Verified 11/14/19 11:17 Consultations 11/14/19 11:33 ED Decision to Admit Stat 11/14/19 17:50 Consult Cardiac Rehabilitation Routine 11/14/19 17:59 Consult Cardiology Routine 11/15/19 11:25 Consult Cardiac Rehabilitation Routine Procedures Performed Operation Date: 11/14/19 14:00 Actual Procedures p Cath, Left with Cors and Vent - Dick Ruiz MD s Cineradiography w/Routine Exam - Dick Ruiz MD s Drug Eluting Stent SGl Vessel - Dick Ruiz MD s Ultrasound Vascular Access - Dick Ruiz MD Ordered Studies 11/14/19 13:27 CT angio chest dissec wo/w con Stat 11/14/19 14:57 CL Cath Imgs for PACS use only Stat Hospital Course (1) ACS (acute coronary syndrome): Continue admit to PCU on telemetry for further evaluation of unstable angina(exertional chest discomfort, and abnormal nuclear stress test) Patient is eager to go home. Feels much better today. Follow-up with cardiology Dr. Welch within a 2 to 3 weeks. Multivessel coronary artery disease post PCI to mid LAD.Denies chest pain, troponin has peaked. Electrically stable on telemetry. New LAD distribution wall motion abnormality on echo. AI unchanged from prior report. Normal estimated biventricular filling pressures No heart failure on exam. Diffuse ecchymoses at access site but neurovascularly intact distally-resolving. 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 Vital signs every 4 hours heparin drip discontinued by cardiology s/p cardiac cath. Heart healthy diet DVT prophylaxis pt is ambulatory Continue Asa Continue DAPT with aspirin 81 mg PO daily and Clopidogrel 75 mg PO daily. Continue losartan Transition atenolol to Toprol-XL 50 mg daily Start statin Continue long-acting nitrate Intervention to RCA only if refractory symptoms in the future. Full code (2) LBBB (left bundle branch block): as the above (3) Aortic regurgitation: She has moderate to severe mitral regurgitation as well as a dilated aortic root. CT scan to ruled out dissection. (4) Hyperlipidemia: Fasting lipid panel pending. Patient is not taking statins. (5) Benign essential hypertension: Monitor blood pressure closely. Transition Atenolol to Toprol X isosorbide mononitrate 30 mg p.o. nightly, Losartan 100 mg p.o. every morning Total Time Total Time Spent Total Time Spent (In Minutes): >30 min Discharge Plan Discharge Items Patient Disposition: Home - Self-Care Reason For Visit: CHEST PAIN Discharge Diagnosis: acute coronary syndrome Condition on Discharge: Good Activity: As commented below Lifting: Gradually increase as tolerated Bathing: No limitations Exercise/Sports: Gradually increase as tolerated Exercise Comment: cardiac rehab Non-emergency contact: Primary Care Provider and Branch Office Administrator Call non-emergency contact if: you have any medication questions, your symptoms worsen, your pain is not controlled, your pain is worsening, your pain is unusual for you, your pain is concerning for you, you have a fever and your temperature is above 101 Follow-up/Referrals: Pat Muro MD [Primary Care Provider] - Diet: Heart Healthy Addtl Attending Provider Instructions: Please follow up with Dr. Ruiz in 2 weeks. You will need to start cardiac rehabilitation. They will call you with the schedule of the appointment. Follow-up with PCP in 7 days and repeat CBC and CMP. Pending Studies at Discharge: No Stand-Alone Forms: My [facility] Vigilistics, Smoking Cessation Medications and DC Order Prescriptions: New atorvastatin 40 mg Tablet 40 mg PO QAM Qty: 30 RF: 0 clopidogrel 75 mg Tablet 75 mg PO QAM Qty: 30 RF: 0 aspirin [Ecotrin Low Strength] 81 mg Tablet,Delayed Release (Dr/Ec) 81 mg PO QAM Qty: 30 RF: 0 nitroglycerin [Nitrostat] 0.4 mg Tablet, Sublingual 0.4 mg sublingual PRN PRN (Reason: chest pain) Qty: 100 RF: 0 metoprolol succinate 25 mg Tablet Extended Release 24 Hr 50 mg PO QAM Qty: 30 RF: 0 Continued calcium carbonate-vitamin D3 [Calcium with Vitamin D] 600 mg(1,500mg) -400 unit tablet 1 tab PO BID Qty: 180 RF: 3 isosorbide mononitrate 30 mg tablet extended release 24 hr 30 mg PO HS RF: 0 losartan 100 mg tablet 100 mg PO QAM RF: 0 Complete Multivitamin tablet 1 tab PO MOWEFR RF: 0 Discontinued atenolol 50 mg tablet 50 mg PO HS RF: 0 No Action acetaminophen [Tylenol Arthritis Pain] 650 mg Tablet Extended Release 650 mg PO HS RF: 0 Discharge Orders: Discharge Order (Routine); Ordered 11/16/19 Ordered By: Jenn Myrick Admission Data Admit Date/Time: 11/14/19 12:58 Attending Provider: Jenn Myrick Admit Provider: Jenn Myrick Primary Care Provider: Pat Muro Other Providers: Jenn Myrick ; Renato Montemayor Coding Level of Care Code D/C Day Management >30 mins Diagnoses ACS (acute coronary syndrome) I24.9 LBBB (left bundle branch block) I44.7 Aortic regurgitation I35.1 Hyperlipidemia E78.5 Benign essential hypertension I10
[2019-11-17] MEDS ORDERED: CEROVITE ADV FORMULA TAB PO SCH (09:00)
--- NOTE | 2019-11-18 11:38 | Coding Query ---
To promote full compliance with coding requirements relating to patient care, provider participation is requested in all cases of finance manager uncertainty. Please assist us with the question(s) below: Coding Question(s): The diagnosis below was documented in the Cardiac Catheterization report on 11/14/19, then subsequently fell off all further documentation. Please indicate if it is still a possible diagnosis or ruled out. Physician's Response(s): Non STEMI ( X ) Diagnosed and POA ( ) Diagnosed and not POA ( ) Ruled out ( ) Other (please specify) MTDD
== END 2019-11-16 15:32 | disposition home or self-care (01) | DRG 247 ==
LOC: ED 10:06 → 2S 12:58

== ENCOUNTER 2023-03-31 21:11 | Inpatient (IN) ==
[2023-03-31] MEDS ORDERED: SODIUM CHLORIDE 0.9% 500 ML IV STA (21:23)
[2023-03-31] MEDS ORDERED: METOPROLOL TARTRATE 1 MG/ML VIAL IV STA (21:55)
[2023-03-31 22:07] LABS: Basophils # (auto) 0.04 K/uL (0-0.2); Basophils % (auto) 0.4 %; Eosinophils # (auto) 0.03 K/uL (0-0.50); Eosinophils % (auto) 0.3 %; Hematocrit (blood only) 39.6 % (37.0-47.0); Hemoglobin 13.3 g/dl (12.0-16.0); Immature Granulocytes # (auto) 0.03 K/uL (0.01-0.20); Immature Granulocytes % (auto) 0.3 %; Lymphocytes # (auto) 1.57 K/uL (1.2-3.4); Lymphocytes % (auto) 15.9 %; Mean Corpuscular Hemoglobin 31.8 pg (25.0-34.0); Mean Corpuscular Hgb Conc 33.6 g/dL (32.0-36.0); Mean Corpuscular Volume 94.7 fL (80.0-100.0); Mean Platelet Volume 10.4 fL (9.4-12.4); Monocytes # (auto) 0.62 K/uL (0.11-0.59); Monocytes % (auto) 6.3 %; Neutrophils % (auto) 76.8 %; Platelet Count 262 K/uL (130-400); RDW Coefficient of Variation 12.4 % (11.5-14.5); RDW Standard Deviation 43.2 fL (36.4-46.3); Red Blood Count 4.18 M/uL (4.20-5.40); White Blood Count 9.89 K/ul (4.8-10.8)
[2023-03-31 22:24] LABS: Albumin Globulin Ratio 1.6 (0.9-2); Albumin Level 4.4 gm/dl (3.4-5.0); BUN Creatinine Ratio 22.1 (10-20); Bilirubin,Total 2.3 mg/dl (0.2-1.0); Calcium 9.5 mg/dl (8.6-10.3); Creatinine Clr Calc Pharmacy 35.4 ml/min; Est GFR (African American) 57.5 ml/min; Est GFR (Non-African American) 49.6 ml/min; Globulin 2.8 gm/dl (2.5-4.0); Magnesium 1.9 mg/dl (1.7-2.4); Potassium 3.8 mmol/L (3.5-5.1); Total Protein 7.2 gm/dl (6.0-8.3)
[2023-03-31] MEDS ORDERED: MAGNESIUM SULFATE / D5W 1 GM/100 ML BAG IV ONE (22:29)
[2023-03-31] MEDS ORDERED: POTASSIUM CHLORIDE / WTR 10 MEQ/100 ML PLCT IV ONE (22:29)
[2023-03-31 22:32] LABS: Troponin I High Sensitivity 99.4 pg/ml (0-14)
[2023-03-31 23:13] LABS: Partial Thromboplastin Time 27.7 Seconds (21.0-31.0); Prothrombin Time 10.7 Seconds (9.0-12.0)
--- NOTE | 2023-03-31 23:30 | Emergency Department Note ---
Impression & Plan Paroxysmal atrial fibrillation, Wide-complex tachycardia ED Provider Note INFORMANT: Patient and family ED PROVIDER(S): Rey Ma MD CHIEF COMPLAINT: Tachycardia and palpitations PLAN: Disposition: Admitted Condition: Good Outpatient prescription management: none Referral: None MEDICAL DECISION MAKING: Patient presented because of tachycardia/palpitations. She was found to be in rapid atrial fibrillation. Patient underwent a work-up. Her CBC was unremarkable. Patient's cardiac troponin is elevated. The patient's magnesium and potassium were below the 2.0 and 4.0 respective values given the atrial fibrillation issues. Patient did convert spontaneously but then was found to have a short run of wide-complex tachycardia concerning for V. tach/A-fib with a berrancy. She was given IV magnesium and potassium. Lopressor was ordered however the patient did convert. Patient was hydrated. Patient will need further management in the hospital given this dysrhythmia issue. [facility] Case was discussed and diagnostics were reviewed. We did discuss anticoagulation and she will manage this patient was admitted for further management. Discussed with business line manager After review of the information above and other included data, I feel the patient requires admission. Triage Nursing notes reviewed and agree them. Vital Signs: reviewed and remarkable for tachycardia Prior /Outside records reviewed: Prior cardiology visit record reviewed. Stable CAD and left bundle branch block Differential diagnosis: Premature contractions, electrolyte abnormality, cardiac dysrhythmia, thyroid dysfunction, pulmonary embolism, infection, gastrointestinal, as well as other pathologies. Diagnostics, as interpreted by me: ECG: Twelve-lead ECG #1 reveals atrial fibrillation with rapid ventricular response and premature ventricular contractions at 118 bpm. Left bundle branch block and left axis deviation present. When compared to 15 November 2019 atrial fibrillation and PVCs are new. Twelve-lead ECG #2 reveals a sinus rhythm with a first-degree AV block at 97 bpm. Left axis deviation and left bundle block present. PVCs have resolved. Cardiac Monitoring: Cardiac monitoring ordered by me: The patient was placed on continuous cardiac monitoring and observed. It revealed paroxysmal atrial fibrillation converting spontaneously to sinus rhythm with occasional PVCs. Patient then had a short run of sustained wide-complex tachycardia, possibly V. tach versus A-fib with aberrancy Medical decision rules: none Imaging studies: Chest x-ray. Findings: A chest x-ray was performed and revealed no pneumothorax, effusion, infiltrate, pulmonary edema, free air under the diaphragm, or wide mediastinum. Cardiomegaly noted. This may be slightly worse than prior. Impression: No acute disease. HPI: The patient is a 82 year old female who presents to the Emergency Room with complaints of palpitations and fast heartbeat. This started over the recent days and is worse today. The patient also notes the following associated symptoms, fluttering in her chest, mild shortness of breath. Patient denied any chest pain or pressure. The patient has taken no medication for relieving factors. Current pain is rated as 0/10. Initial triage reports a 5 out of 10 chest pain however with further history and discussion with the patient she notes is not really pain more chest fluttering and palpitation feeling. Pt denies LOC, headache, fevers, chills, diaphoresis, visual changes, neck pain, chest pain, nausea, vomiting, abdominal pain, back pain, melena, hematochezia, urinary symptoms, numbness, weakness, lymphadenopathy, rash, or other complaints. PAST MEDICAL HISTORY: See Below, ischemic cardiomyopathy, left bundle branch block PAST SURGICAL HISTORY: See Below, coronary stent x2 SOCIAL HISTORY: See Below, HOME MEDICATIONS: See Below ALLERGIES: See Below VITALS: See Below PHYSICAL EXAMINATION: GENERAL: Awake, alert, well-appearing, in no distress HENT: Normocephalic, atraumatic. Oropharynx unremarkable. EYES: Normal conjunctiva. Sclera non-icteric. NECK: Inspection normal. Non-tender. Supple. No nuchal rigidity. FROM. No masses. RESPIRATORY: Clear to auscultation. No wheezes. No rales. Normal respiratory effort. CARDIAC: Tachycardic rate. Irregular rhythm. No murmurs. No rubs. Extremities warm and well perfused. Pulses equal. No JVD. GI: Soft, non-distended. No tenderness to palpation. No rebound or guarding. No masses. RECTAL: Deferred. MUSCULOSKELETAL: Atraumatic. Chest examination reveals no tenderness. The back is symmetrical on inspection without obvious abnormality. There is no CVA tenderness to palpation. No joint edema. LOWER EXTREMITIES: Calves are equal size bilaterally and non-tender. No edema. No discoloration. NEURO: Normal sensorium. No sensory or motor deficits noted. SKIN: No rash or jaundice noted. CRITICAL CARE: I have personally spent greater than 30 minutes of critical care time in the direct management of this patient. This includes bedside care, interpretation of diagnostic studies, and testing, discussion with consultants, patient, and family members, and other required patient management activities. These minutes are in excess of all separately billable procedures. Past Med/Surg History Medical History Abnormal mammogram Aortic regurgitation Benign essential hypertension CAD (coronary artery disease) Chronic hepatitis Dilated aortic root Generalized osteoarthritis of multiple sites Hyperlipidemia Ischemic cardiomyopathy LBBB (left bundle branch block) Mitral regurgitation Postmenopausal osteoporosis Tricuspid regurgitation Vitamin D deficiency Surgical History H/O breast biopsy S/P cardiac catheterization S/P colonoscopy S/P coronary artery stent placement S/P hysterectomy S/P knee replacement Family History Sister Coronary heart disease Father Coronary heart disease Denies family history of Ovarian cancer Prostate cancer Myocardial infarction Breast cancer Lung cancer Colorectal cancer Social History Smoking Status: Never smoker Second Hand Exposure: Yes ( smoked); Do You Dip or Chew Tobacco: No; Hx Alcohol Use: Yes (Socially ) Alcohol type: wine Alcohol Intake Frequency: Monthly or Less Hx Substance Use: No Preferred Language: Croatian Communication Ability: Effective Visual Impairment: Limited Hearing Ability: Normal Auction Block Clerk Required: No Beliefs That Will Affect Care: None marital status: Current Living Situation: Spouse current occupational status: retired How many Children do You have: 1 Feels Safe at Home: Yes Childhood Exposure to Second-Hand Smoke: Yes ( smoked) Diet: regular Diet Comment: Low fat diet caffeine: Yes (coffee 2 cups in the morning) during the past year weight has: remained stable Dental Care, Regularly: Yes Physical Activity Frequency: 3-4 Times per Week Physical Activity Frequency Comment: walking when the weather is nice. Seatbelt Use: always Sunscreen Use: Yes Do you think of yourself as: straight/heterosexual Gender Identity: Female Assistive Devices: Denture - Lower and Glasses Allergies Allergies Allergy/AdvReac Type Severity Reaction Status Date / Time No Known Drug Allergies Allergy NKDA Verified 03/31/23 22:53 Home Meds Home Medications Medication Instructions Recorded Confirmed acetaminophen 650 mg 650 mg PO HS 11/14/19 03/31/23 tablet,extended release (Tylenol Arthritis Pain) multivitamin with minerals 1 tab PO 3XWK 09/30/21 03/31/23 Previous Rx's Medication Instructions Recorded calcium carbonate 600 mg-vitamin 1 tab PO BID #180 tabs 04/21/19 D3 10 mcg (400 unit) tablet (Calcium with Vitamin D) aspirin 81 mg tablet,delayed 81 mg PO QAM #30 tabs 11/16/19 release (Ecotrin Low Strength) atorvastatin 40 mg tablet 40 mg PO QAM #90 tabs 09/22/22 isosorbide mononitrate 30 mg 30 mg PO HS #90 tabs 09/22/22 tablet,extended release 24 hr metoprolol succinate 50 mg 50 mg PO HS #90 tabs 09/22/22 tablet,extended release 24 hr nitroglycerin 0.4 mg sublingual 0.4 mg sublingual PRN PRN chest 11/07/22 tablet (Nitrostat) pain #25 tabs amlodipine 5 mg tablet 5 mg PO HS #90 tabs 11/23/22 losartan 100 mg tablet 100 mg PO QAM #90 tabs 12/20/22 Results & Data (ED) Vital Signs Vital Signs - 24 hr 03/31/23 21:12 03/31/23 21:23 03/31/23 22:01 Temperature 36.6 C Temperature Source Temporal Artery Scan Pulse Rate 154 H 120 H Pulse Rate [Apical] 98 H Pulse Rhythm Regular Pulse Strength Normal Respiratory Rate 22 16 Respiratory Effort / Characteristics Non-Labored Spontaneous Non-Labored Spontaneous Respiratory Depth Normal Normal Respiratory Pattern Regular Regular Blood Pressure 120/75 Blood Pressure [Left Arm] 142/78 H Blood Pressure Mean 90 Blood Pressure Mean [Left Arm] 99 Blood Pressure Position Sitting Blood Pressure Position [Left Arm] Pulse Oximetry 96 96 Oxygen Delivery Method Room Air Room Air Sepsis Recent Fever Within 48 Hours No Sepsis New/Unexplained Change in Mental Status N/A Sepsis Action Taken by Nursing No Action Required 03/31/23 22:03 03/31/23 22:16 03/31/23 22:19 Temperature Temperature Source Pulse Rate 99 H 167 H Pulse Rate [Apical] 95 H Pulse Rhythm Pulse Strength Respiratory Rate 18 Respiratory Effort / Characteristics Non-Labored Spontaneous Respiratory Depth Normal Respiratory Pattern Regular Blood Pressure Blood Pressure [Left Arm] 135/87 Blood Pressure Mean Blood Pressure Mean [Left Arm] 103 Blood Pressure Position Blood Pressure Position [Left Arm] Semi-fowlers Pulse Oximetry 96 Oxygen Delivery Method Room Air Sepsis Recent Fever Within 48 Hours Sepsis New/Unexplained Change in Mental Status Sepsis Action Taken by Nursing 03/31/23 23:30 04/01/23 00:47 Temperature Temperature Source Pulse Rate Pulse Rate [Apical] 96 H 92 H Pulse Rhythm Pulse Strength Respiratory Rate 18 16 Respiratory Effort / Characteristics Non-Labored Spontaneous Non-Labored Spontaneous Respiratory Depth Normal Normal Respiratory Pattern Regular Regular Blood Pressure Blood Pressure [Left Arm] 138/69 135/88 Blood Pressure Mean Blood Pressure Mean [Left Arm] 92 103 Blood Pressure Position Blood Pressure Position [Left Arm] Semi-fowlers Semi-fowlers Pulse Oximetry 96 93 Oxygen Delivery Method Room Air Room Air Sepsis Recent Fever Within 48 Hours Sepsis New/Unexplained Change in Mental Status Sepsis Action Taken by Nursing Laboratory Data 03/31/23 21:30 03/31/23 21:30 Lab Results 03/31/23 03/31/23 03/31/23 Range/Units 21:30 21:30 21:30 WBC 9.89 (4.8-10.8) K/ul RBC 4.18 L (4.20-5.40) M/uL Hgb 13.3 (12.0-16.0) g/dl Hct 39.6 (37.0-47.0) % MCV 94.7 (80.0-100.0) fL MCH 31.8 (25.0-34.0) pg MCHC 33.6 (32.0-36.0) g/dL RDW Std Deviation 43.2 (36.4-46.3) fL RDW Coeff of Leanne 12.4 (11.5-14.5) % Plt Count 262 (130-400) K/uL MPV 10.4 (9.4-12.4) fL Immature Gran % (Auto) 0.3 % Neut % (Auto) 76.8 % Lymph % (Auto) 15.9 % Ramsey % (Auto) 6.3 % Eos % (Auto) 0.3 % Baso % (Auto) 0.4 % Neut # (Auto) 7.60 H (1.40-6.50) K/uL Lymph # (Auto) 1.57 (1.2-3.4) K/uL Ramsey # (Auto) 0.62 H (0.11-0.59) K/uL Eos # (Auto) 0.03 (0-0.50) K/uL Baso # (Auto) 0.04 (0-0.2) K/uL Immature Gran # (Auto) 0.03 (0.01-0.20) K/uL PT (9.0-12.0) Seconds INR (0.9-1.1) APTT (21.0-31.0) Seconds PTT Ratio Sodium 136 (136-145) mmol/L Potassium 3.8 (3.5-5.1) mmol/L Chloride 103 (98-107) mmol/L Carbon Dioxide 20 L (21-32) mmol/L Anion Gap 13 H (3-11) BUN 23 (6-23) mg/dl Creatinine 1.04 (0.6-1.2) mg/dl Est Cr Clr Drug Dosing 35.4 ml/min Est GFR ( Amer) 57.5 ml/min Est GFR (Non-Af Amer) 49.6 ml/min BUN/Creatinine Ratio 22.1 H (10-20) Glucose 196 H (70-99(Fasting)) mg/dl Calcium 9.5 (8.6-10.3) mg/dl Magnesium 1.9 (1.7-2.4) mg/dl Total Bilirubin 2.3 H (0.2-1.0) mg/dl AST 27 (13-39) U/L ALT 19 (7-52) U/L Alkaline Phosphatase 52 (34-104) U/L Troponin I High Sens 99.4 H* (0-14) pg/ml Total Protein 7.2 (6.0-8.3) gm/dl Albumin 4.4 (3.4-5.0) gm/dl Globulin 2.8 (2.5-4.0) gm/dl Albumin/Globulin Ratio 1.6 (0.9-2) TSH 3.504 (0.300-4.500) uIu/ml SARS-CoV-2, RNA, NAAT (NEGATIVE) 03/31/23 03/31/23 Range/Units 21:30 22:56 WBC (4.8-10.8) K/ul RBC (4.20-5.40) M/uL Hgb (12.0-16.0) g/dl Hct (37.0-47.0) % MCV (80.0-100.0) fL MCH (25.0-34.0) pg MCHC (32.0-36.0) g/dL RDW Std Deviation (36.4-46.3) fL RDW Coeff of Leanne (11.5-14.5) % Plt Count (130-400) K/uL MPV (9.4-12.4) fL Immature Gran % (Auto) % Neut % (Auto) % Lymph % (Auto) % Ramsey % (Auto) % Eos % (Auto) % Baso % (Auto) % Neut # (Auto) (1.40-6.50) K/uL Lymph # (Auto) (1.2-3.4) K/uL Ramsey # (Auto) (0.11-0.59) K/uL Eos # (Auto) (0-0.50) K/uL Baso # (Auto) (0-0.2) K/uL Immature Gran # (Auto) (0.01-0.20) K/uL PT 10.7 (9.0-12.0) Seconds INR 1.0 (0.9-1.1) APTT 27.7 (21.0-31.0) Seconds PTT Ratio 1.0 Sodium (136-145) mmol/L Potassium (3.5-5.1) mmol/L Chloride (98-107) mmol/L Carbon Dioxide (21-32) mmol/L Anion Gap (3-11) BUN (6-23) mg/dl Creatinine (0.6-1.2) mg/dl Est Cr Clr Drug Dosing ml/min Est GFR ( Amer) ml/min Est GFR (Non-Af Amer) ml/min BUN/Creatinine Ratio (10-20) Glucose (70-99(Fasting)) mg/dl Calcium (8.6-10.3) mg/dl Magnesium (1.7-2.4) mg/dl Total Bilirubin (0.2-1.0) mg/dl AST (13-39) U/L ALT (7-52) U/L Alkaline Phosphatase (34-104) U/L Troponin I High Sens (0-14) pg/ml Total Protein (6.0-8.3) gm/dl Albumin (3.4-5.0) gm/dl Globulin (2.5-4.0) gm/dl Albumin/Globulin Ratio (0.9-2) TSH (0.300-4.500) uIu/ml SARS-CoV-2, RNA, NAAT NEGATIVE (NEGATIVE) Administered Medications Discontinued Medications Sodium Chloride (Nss) 500 mls @ 999 mls/hr IV .Q31M STA Stop: 03/31/23 21:53 Last Infusion: 03/31/23 22:20 Dose: 0 mls/hr Documented By: Admin: 03/31/23 21:49 Dose: 999 mls/hr Documented By: ELDER Potassium Chloride (K Jamie / Wtr) 10 meq in 100 mls @ 100 mls/hr IV ONE ONE; Protocol Stop: 03/31/23 23:28 Last Infusion: 03/31/23 23:51 Dose: 0 mls/hr Documented By: Admin: 03/31/23 22:51 Dose: 100 mls/hr Documented By: ELDER Magnesium Sulfate/Dextrose (Magnesium Sulfate / D5w) 1 gm in 100 mls @ 50 mls /hr IV ONE ONE Stop: 04/01/23 00:28 Last Infusion: 04/01/23 00:47 Dose: 0 mls/hr Documented By: Admin: 03/31/23 22:47 Dose: 50 mls/hr Documented By: ELDER Metoprolol Tartrate (Metoprolol Tartrate 1 Mg/Ml Vial) 2.5 mg IV NOW STA Stop: 03/31/23 21:56 Last Admin: 04/01/23 00:03 Dose: Not Given Documented By: ELDER Discharge Plan Visit Data Chief Complaint: Tachycardia Stated Complaint: INCREASE HEART RATE ED Provider: Rey Ma Discharge Problem: Paroxysmal atrial fibrillation, Wide-complex tachycardia Patient Disposition: Admitted As Inpatient Discharge Instructions Interventions: ED Discharge Assessment Last Done: 04/01/23 00:53 Forms Stand Alone Forms: [facility] Prescriptions Prescriptions: No Action amlodipine 5 mg tablet 5 mg PO HS Qty: 90 3RF losartan 100 mg tablet 100 mg PO QAM Qty: 90 3RF calcium carbonate-vitamin D3 [Calcium with Vitamin D] 600 mg(1,500mg) -400 unit tablet 1 tab PO BID Qty: 180 3RF isosorbide mononitrate 30 mg tablet extended release 24 hr 30 mg PO HS Qty: 90 3RF metoprolol succinate 50 mg tablet extended release 24 hr 50 mg PO HS Qty: 90 3RF atorvastatin 40 mg tablet 40 mg PO QAM Qty: 90 3RF nitroglycerin [Nitrostat] 0.4 mg tablet, sublingual 0.4 mg sublingual PRN PRN (Reason: chest pain) Qty: 25 5RF Rx Instructions: 1 tablet every 5 minutes for chest pain, up to 3 doses. call 911 if chest pain persists after 1st tab acetaminophen [Tylenol Arthritis Pain] 650 mg Tablet Extended Release 650 mg PO HS aspirin [Ecotrin Low Strength] 81 mg Tablet,Delayed Release (Dr/Ec) 81 mg PO QAM Qty: 30 0RF multivitamin with minerals Tablet 1 tab PO 3XWK Rx Instructions: Sunday,Sunday,Sunday at bedtime Referrals Referrals: Elif Wang DO [Primary Care Provider] -
--- NOTE | 2023-04-01 00:01 | History & Physical Report ---
Date of Service April 01, 2023 Assessment & Plan (1) Wide-complex tachycardia: Plan: Concern for VT. Patient with h/o CAD and ICM. No recent illness. Electroltyes WNL. Troponin elevated at 99.4 -Admit to PCU -Trend troponin -Check 2D echo -Cardiology consultation appreciated (2) CAD (coronary artery disease): Plan: Known CAD with stent in LAD. Medical therapy for RCA disease -Continue ASA 81mg daily -Continue Atorvastatin 40mg daily -Continue Metoprolol -Continue Losartan (3) Ischemic cardiomyopathy: Plan: Appears to be well compensated. No evidence of volume overload -Continue Metoprolol, Losartan and Isosorbide mononitrate (4) Benign essential hypertension: Plan: Blood pressure adequately controlled -Continue medications as above (5) Hyperlipidemia: Plan: Chronic -Continue Atorvastatin F/E/N - Heplock. Electrolytes WNL. Heart healthy diet as tolerated Ppx - Lovenox Code - DNR/DNI per discussion with patient Dispo - Admit to PCU History of Present Illness Chief Complaint: palpitations Primary Care Provider: Elif Wang DO Magda Ramón is an 82yo female with history of CAD s/p NSTEMI in November 2019 with PCI to the LAD with residual RCA disease, non-severe AR, dilated aortic root/ascending aorta, HTN and LBBB. Ischemic cardiomyopathy with EF of 45-50% per echo 03/2022, LBBB present. Patient follows with Cardiology. She has been having intermittent palpitations for the last week. They do not occur daily - she notices them mostly at night. She states that her "pulse has been going nuts". She feels a flutter in her chest and her heart "just doesn't feel normal". She gets diaphoretic during these episodes and reports that she checked her blood pressure during an episode and it was low - she doesn't recall the exact numbers but recalls that "both numbers were under 100". She denies chest pain, dizziness and syncope. No recent illness. No edema or orthopnea. No weight gain. Patient has been in contact with Cardiology regarding these episodes and is to have an outpatient heart monitor arranged. Tonight she had an episode of palpitations that lasted longer and was faster than before which prompted her to come to the ER. Strip printed - patient with 20-30 beats of wide complex tachycardia which resolved before medication given. Possible run of atrial fibrillation as well. Allergies Allergy/AdvReac Type Severity Reaction Status Date / Time No Known Drug Allergies Allergy NKDA Verified 03/31/23 22:53 Home Medications Medication Instructions Recorded Confirmed Type calcium carbonate 600 mg-vitamin 1 tab PO BID #180 tabs 04/21/19 03/31/23 Rx D3 10 mcg (400 unit) tablet (Calcium with Vitamin D) acetaminophen 650 mg 650 mg PO HS 11/14/19 03/31/23 History tablet,extended release (Tylenol Arthritis Pain) aspirin 81 mg tablet,delayed 81 mg PO QAM #30 tabs 11/16/19 03/31/23 Rx release (Ecotrin Low Strength) multivitamin with minerals 1 tab PO 3XWK 09/30/21 03/31/23 History atorvastatin 40 mg tablet 40 mg PO QAM #90 tabs 09/22/22 03/31/23 Rx isosorbide mononitrate 30 mg 30 mg PO HS #90 tabs 09/22/22 03/31/23 Rx tablet,extended release 24 hr metoprolol succinate 50 mg 50 mg PO HS #90 tabs 09/22/22 03/31/23 Rx tablet,extended release 24 hr nitroglycerin 0.4 mg sublingual 0.4 mg sublingual PRN PRN chest 11/07/22 03/31/23 Rx tablet (Nitrostat) pain #25 tabs amlodipine 5 mg tablet 5 mg PO HS #90 tabs 11/23/22 03/31/23 Rx losartan 100 mg tablet 100 mg PO QAM #90 tabs 12/20/22 03/31/23 Rx Past Med/Surg History Medical History Abnormal mammogram Aortic regurgitation Benign essential hypertension CAD (coronary artery disease) Chronic hepatitis Dilated aortic root Generalized osteoarthritis of multiple sites Hyperlipidemia Ischemic cardiomyopathy LBBB (left bundle branch block) Mitral regurgitation Postmenopausal osteoporosis Tricuspid regurgitation Vitamin D deficiency Surgical History H/O breast biopsy S/P cardiac catheterization 11/14/19 Dr. Win Ruiz- 2 DARLINE to mid LAD S/P colonoscopy S/P coronary artery stent placement S/P hysterectomy S/P knee replacement Family History Sister Coronary heart disease Father Coronary heart disease Denies family history of Ovarian cancer Prostate cancer Myocardial infarction Breast cancer Lung cancer Colorectal cancer Social History Smoking Status: Never smoker Second Hand Exposure: Yes; Do You Dip or Chew Tobacco: No; Tobacco Cessation Education Requested by Patient: No Hx Alcohol Use: Yes Alcohol type: wine Alcohol Intake Frequency: Monthly or Less Hx Substance Use: No Preferred Language: Zambian Communication Ability: Effective Visual Impairment: Limited Hearing Ability: Normal Top And Trim Worker Required: No Beliefs That Will Affect Care: None marital status: Current Living Situation: Spouse current occupational status: retired How many Children do You have: 1 Other Information That Helps Us Care for You: No Feels Safe at Home: Yes Safety Concerns: Feels Safe At This Time Childhood Exposure to Second-Hand Smoke: Yes ( smoked) Diet: regular Diet Comment: Low fat diet caffeine: Yes (coffee 2 cups in the morning) during the past year weight has: remained stable Dental Care, Regularly: Yes Physical Activity Frequency: 3-4 Times per Week Physical Activity Frequency Comment: walking when the weather is nice. Seatbelt Use: always Sunscreen Use: Yes Do you think of yourself as: straight/heterosexual Gender Identity: Female Assistive Devices: Glasses Review of Systems Review of Systems: All systems reviewed & are unremarkable except as noted in HPI & below Physical Exam Physical Exam: General: patient resting comfortably, NAD, non-toxic in appearance, AA&O x 4 Skin: warm, dry, intact, no rashes or lesions HEENT: NC/AT, PERRL, EOMI, anicteric sclera, conjunctiva without injection, external ear normal to inspection and nontender, nares patent, moist mucus membranes, dentition intact, no oropharyngeal lesions, neck supple, trachea midline, no LAD, no thyromegaly, no JVD Heart: +S1/S2, regular, no m/r/g Lungs: equal air entry bilaterally, no rales/rhonchi/wheezes Abd: +BS, soft, NT/ND, no masses/organomegaly/ascites Ext: warm, 2+ pulses in UE/LE bilaterally, no clubbing/cyanosis or edema Neuro: nonfocal, patient AA&O x 4, speech intact, no facial droop, moving all extremities on command with equal strength 5/5 Results & Data Results & Data Vital Signs (Past 12 Hours) Vital Signs Temp Pulse Pulse Resp BP BP Pulse Ox 03/31/23 23:30 96 H 18 138/69 96 03/31/23 22:19 95 H 18 135/87 96 03/31/23 22:16 167 H 03/31/23 22:03 99 H 03/31/23 22:01 98 H 16 142/78 H 96 03/31/23 21:23 120 H 03/31/23 21:12 36.6 C 154 H 22 120/75 96 O2 Del Method 03/31/23 23:30 Room Air 03/31/23 22:19 Room Air 03/31/23 22:16 03/31/23 22:03 03/31/23 22:01 Room Air 03/31/23 21:23 03/31/23 21:12 Room Air Laboratory Results Laboratory Results WBC 9.89 K/ul (4.8-10.8) 03/31/23 21:30 RBC 4.18 M/uL (4.20-5.40) L 03/31/23 21:30 Hgb 13.3 g/dl (12.0-16.0) 03/31/23 21:30 Hct 39.6 % (37.0-47.0) 03/31/23 21:30 MCV 94.7 fL (80.0-100.0) 03/31/23 21:30 MCH 31.8 pg (25.0-34.0) 03/31/23 21:30 MCHC 33.6 g/dL (32.0-36.0) 03/31/23 21:30 RDW Std Deviation 43.2 fL (36.4-46.3) 03/31/23 21:30 RDW Coeff of Leanne 12.4 % (11.5-14.5) 03/31/23 21:30 Plt Count 262 K/uL (130-400) 03/31/23 21:30 MPV 10.4 fL (9.4-12.4) 03/31/23 21:30 Immature Gran % (Auto) 0.3 % 03/31/23 21:30 Neut % (Auto) 76.8 % 03/31/23 21:30 Lymph % (Auto) 15.9 % 03/31/23 21:30 [place] % (Auto) 6.3 % 03/31/23 21:30 Eos % (Auto) 0.3 % 03/31/23 21:30 Baso % (Auto) 0.4 % 03/31/23 21:30 Neut # (Auto) 7.60 K/uL (1.40-6.50) H 03/31/23 21:30 Lymph # (Auto) 1.57 K/uL (1.2-3.4) 03/31/23 21:30 [place] # (Auto) 0.62 K/uL (0.11-0.59) H 03/31/23 21:30 Eos # (Auto) 0.03 K/uL (0-0.50) 03/31/23 21: Baso # (Auto) 0.04 K/uL (0-0.2) 03/31/23 21: Immature Gran # (Auto) 0.03 K/uL (0.01-0.20) 03/31/23 21:30 PT 10.7 Seconds (9.0-12.0) 03/31/23 21: INR 1.0 (0.9-1.1) 03/31/23 21: APTT 27.7 Seconds (21.0-31.0) 03/31/23: PTT Ratio 1.0 03/31/23 21:30 Sodium 136 mmol/L (136-145) 03/31/23 21:30 Potassium 3.8 mmol/L (3.5-5.1) 03/31/23 21: Chloride 103 mmol/L (98-107) 03/31/23 21:30 Carbon Dioxide 20 mmol/L (21-32) L 03/31/23 21:30 Anion Gap 13 (3-11) H 03/31/23 21:30 BUN 23 mg/dl (6-23) 03/31/23 21: Creatinine 1.04 mg/dl (0.6-1.2) 03/31/23 21:30 Est Cr Clr Drug Dosing 35.4 ml/min 03/31/23 21:30 Est GFR ( Amer) 57.5 ml/min 03/31/23 21:30 Est GFR (Non-Af Amer) 49.6 ml/min 03/31/23 21:30 BUN/Creatinine Ratio 22.1 (10-20) H 03/31/23 21:30 Glucose 196 mg/dl (70-99(Fasting)) H 03/31/23 21:30 Calcium 9.5 mg/dl (8.6-10.3) 03/31/23 21:30 Magnesium 1.9 mg/dl (1.7-2.4) 03/31/23 21:30 Total Bilirubin 2.3 mg/dl (0.2-1.0) H 03/31/23 21:30 AST 27 U/L (13-39) 03/31/23 21:30 ALT 19 U/L (7-52) 03/31/23 21:30 Alkaline Phosphatase 52 U/L (34-104) 03/31/23 21:30 Troponin I High Sens 299.5 pg/ml (0-14) H* D 03/31/23 23:50 Total Protein 7.2 gm/dl (6.0-8.3) 03/31/23 21:30 Albumin 4.4 gm/dl (3.4-5.0) 03/31/23 21:30 Globulin 2.8 gm/dl (2.5-4.0) 03/31/23 21:30 Albumin/Globulin Ratio 1.6 (0.9-2) 03/31/23 21:30 TSH 3.504 uIu/ml (0.300-4.500) 03/31/23 21:30 SARS-CoV-2, RNA, NAAT NEGATIVE (NEGATIVE) 03/31/23 22:56 ECG Additional Comments: EG with SR at 97bpm, 1st degree AV block, LAD with LBBB PG Care Time/CCT Total # of Minutes Spent Total Time Spent with Patient: Total time spent is greater than 50% in coordination of care (as documented) at patient's floor/unit and/or counseling patient: Coding Level of Care Code 72261 INT INP/OBS CARE 3/75MIN Diagnoses Wide-complex tachycardia R00.0 CAD (coronary artery disease) I25.10 Ischemic cardiomyopathy I25.5 Benign essential hypertension I10 Hyperlipidemia E78.5
[2023-04-01] MEDS ORDERED: ACETAMINOPHEN 325 MG TAB PO PRN (01:17)
[2023-04-01] MEDS ORDERED: ALBUTEROL HFA 8 GM INHALER INH ONE (04:42)
[2023-04-01] MEDS ORDERED: METOPROLOL TARTRATE 1 MG/ML VIAL IV PRN (04:56)
[2023-04-01] MEDS ORDERED: METOPROLOL TARTRATE 1 MG/ML VIAL IV ONE ×2 (04:57→05:03)
--- NOTE | 2023-04-01 05:20 | Communication Note ---
Date of Service: April 01, 2023 4:40 received notification patient complaining of SOB lungs feel tight, SpO2 94% on 2L NC HR noted low 100's. Ordered stat EKG trop. Patient awake alert able to answer questions, this felt worse than the periods of SOB she had at home, no history pulm conditions. Denies chest pain pain in jaw or arms, no upper extremity weakness. On exam noted tachycardia respiratory rhonchi no wheezes. Received notice that patient's heart rate had increased to 180bpm, noted vtach on telemetry. EKG demonstrated wide complex tachycardia. Ordered metoprolol tartrate 5mg IV, patient remarks on improvement of SOB, HR decreased to 120- 150bpm. Patient asked to perform vagal maneuver, no change in heart rate noted. Ordered second dose of metoprolol tartrate 5mg IV. HR decreased to 70bpm. Patient continues to have improved breathing, denies chest pain dizziness. BP 117/80's, pulse ox 97% on 2L. Troponin level 2036.9. Will start patient on heparin drip for now.
[2023-04-01 05:30] LABS: Hematocrit (blood only) 38.9 % (37.0-47.0); Hemoglobin 13.2 g/dl (12.0-16.0); Mean Corpuscular Hemoglobin 32.4 pg (25.0-34.0); Mean Corpuscular Hgb Conc 33.9 g/dL (32.0-36.0); Mean Corpuscular Volume 95.3 fL (80.0-100.0); Mean Platelet Volume 10.2 fL (9.4-12.4); Platelet Count 264 K/uL (130-400); RDW Coefficient of Variation 12.5 % (11.5-14.5); RDW Standard Deviation 43.8 fL (36.4-46.3); Red Blood Count 4.08 M/uL (4.20-5.40); White Blood Count 10.03 K/ul (4.8-10.8)
[2023-04-01 05:41] LABS: Albumin Level 4.2 gm/dl (3.4-5.0); BUN Creatinine Ratio 31.2 (10-20); Bilirubin Direct 0.2 mg/dl (0-0.2); Bilirubin,Total 2.1 mg/dl (0.2-1.0); Calcium 8.7 mg/dl (8.6-10.3); Creatinine Clr Calc Pharmacy 47.8 ml/min; Est GFR (African American) 82.8 ml/min; Est GFR (Non-African American) 71.4 ml/min; Potassium 3.9 mmol/L (3.5-5.1); Total Protein 6.8 gm/dl (6.0-8.3)
[2023-04-01 05:54] LABS: Troponin I High Sensitivity 2037.9 pg/ml (0-14)
[2023-04-01] MEDS ORDERED: Heparin IV Adult Wt-Based Standard WITH Bolus Protocol IV STA (06:07)
[2023-04-01] MEDS ORDERED: HEPARIN SOD (PORCINE) 1000 UNIT/ML IV ONE (06:45)
[2023-04-01] MEDS: HEPARIN SODIUM/DEXTROSE 25,000 UNITS/500 ML BAG IV SCH (07:07)
--- NOTE | 2023-04-01 07:29 | XRay Report ---
SINGLE VIEW CHEST CLINICAL HISTORY: Dysrhythmia FINDINGS: An AP, portable, upright chest radiograph is compared to chest x-ray and chest CT dated 11/01. The cardiomediastinal heart is enlarged noting atherosclerotic calcification of the thoracic aorta. The pulmonary vasculature is noncongested. Chronic interstitial thickening is similar to previ ous. Scarring/atelectasis is noted at the lung bases. The lungs and pleural spaces are otherwise ritu r. No pneumothorax is seen. The skeletal structures are osteopenic. The bony thorax is grossly intact . IMPRESSION: Cardiomegaly with no active disease in the chest. ACT 112: Negative or not required by law. Electronically signed by: Milton Felix M.D. 04/01/2023 7:28 AM
[2023-04-01] MEDS ORDERED: 0.2 MICRON FILTER SET 1 EACH IV STA (07:56)
[2023-04-01] MEDS ORDERED: STAT IV Infusion **Titration per Protocol STA (07:56)
[2023-04-01] MEDS ORDERED: AMIODARONE IV BOLUS & DRIP IV STA (07:56)
[2023-04-01] MEDS ORDERED: AMIODARONE / D5W 150 MG/100 ML BAG IV STA (08:03)
[2023-04-01] MEDS ORDERED: AMIODARONE / D5W 360 MG/200 ML BAG IV ONE (08:13)
[2023-04-01] MEDS: ATORVASTATIN 40 MG TAB PO SCH (08:36)
[2023-04-01] MEDS: LOSARTAN POTASSIUM 50 MG TAB PO SCH (08:37)
[2023-04-01] MEDS: ASPIRIN 81 MG ECTAB PO SCH (08:37)
[2023-04-01] MEDS ORDERED: ENOXAPARIN INJ 40 MG/0.4 ML SYR SQ SCH (09:00)
[2023-04-01] MEDS ORDERED: FUROSEMIDE 40 MG/4 ML VIAL IV ONE (09:21)
[2023-04-01] MEDS: SPIRONOLACTONE 25 MG TAB PO SCH (10:44)
--- NOTE | 2023-04-01 12:15 | Hospitalist Progress Note ---
Date of Service April 01, 2023 Assessment & Plan (1) Wide-complex tachycardia: Plan: Most Likely SVT. Patient with h/o CAD and ICM. No recent illness. Electrolytes WNL. Troponin elevated at 99.4 -Satrted on Amiodarone infusion -Now sinus rhythm -Trend troponin -Check 2D echo -Cardiology consultation appreciated -Plan for cath within the week (2) CAD (coronary artery disease): Plan: Known CAD with stent in LAD. Medical therapy for RCA disease -Continue ASA 81mg daily -Continue Atorvastatin 40mg daily -Continue Metoprolol -Continue Losartan (3) Ischemic cardiomyopathy: Plan: Some evidence of fluid overload -Started IV Lasix 40 mg -Continue Metoprolol, change Losartan to Axxanasto Monitor I/O daily weight (4) Benign essential hypertension: Plan: Blood pressure adequately controlled -Continue medications as above (5) Hyperlipidemia: Plan: Chronic -Continue Atorvastatin Plan F/E/N - Heplock. Electrolytes WNL. Heart healthy diet as tolerated Ppx - Lovenox Code - DNR/DNI per discussion with patient Dispo - continue hospitalization Admission and Anticipated Discharge Date Admission Date: March 31, 2023 Subjective patient seen and examined, feels a little better, sitting up in the chair Review of Systems Review of Systems: All systems reviewed are negative, apart from the ones contained in the history. Physical Exam Physical Exam: The patient is awake, alert and oriented 3, well developed and well nourished, normocephalic and atraumatic, lying in bed and in no acute distress. HEENT--PERRL, EOMI, mucous membranes and oropharynx mildly dry Neck--supple. No JVD. No bruits. Thyroid normal, trachea midline, no adenopathy. Heart--normal S1 and S2. No murmurs, rubs or gallops. Lungs--crackles. Abdomen--normal bowel sounds and soft. Mild epigastric and left sided abdominal pain Extremities--no cyanosis or clubbing. No edema. Dermatologic--normal skin turgor, normal color, no abnormal lymph nodes, no rash. Neurologic--cranial nerves II through XII grossly intact. Rheumatologic--normal range of motion. Psychiatric--normal affect. Results & Data Results & Data Vital Signs (Past 12 Hours) Vital Signs Temp Pulse Pulse Resp BP BP BP 07/02/23 07:20 04/01/23 10:58 97.9 F 83 22 132/67 04/01/23 07:43 97.5 F L 81 18 134/80 04/01/23 04:52 188 H 04/01/23 04:54 181 H 04/01/23 05:04 136 H 04/01/23 01:37 98 H 04/01/23 05:20 70 128/75 04/01/23 05:05 139 H 158/82 H 04/01/23 04:58 177 H 136/88 04/01/23 03:51 97.7 F 87 18 140/79 04/01/23 01:17 97.7 F 98 H 16 125/91 04/01/23 00:47 92 H 16 135/88 Pulse Ox O2 Del Method O2 Flow Rate 04/01/23 07:20 Nasal Cannula 3.5 04/01/23 10:58 94 Nasal Cannula 2 04/01/23 07:43 91 Room Air 04/01/23 04:52 04/01/23 04:54 04/01/23 05:04 04/01/23 01:37 04/01/23 05:20 04/01/23 05:05 04/01/23 04:58 04/01/23 03:51 92 Room Air 04/01/23 01:17 97 Room Air 04/01/23 00:47 93 Room Air PG Care Time/CCT Total # of Minutes Spent Total Time Spent with Patient: Total time spent is greater than 50% in coordination of care (as documented) at patient's floor/unit and/or counseling patient: Coding Level of Care Code 19581 SUB INP/OBS CARE 2/35MIN Diagnoses Wide-complex tachycardia R00.0 CAD (coronary artery disease) I25.10 Ischemic cardiomyopathy I25.5 Benign essential hypertension I10 Hyperlipidemia E78.5 Time Spent (min) 35
--- NOTE | 2023-04-01 13:41 | Cardiology Consultation ---
Date of Consultation April 01, 2023 Assessment & Plan (1) Non-ST elevation (NSTEMI) myocardial infarction: (2) Acute HFrEF (heart failure with reduced ejection fraction): (3) Paroxysmal atrial fibrillation: (4) SVT (supraventricular tachycardia): (5) Wide-complex tachycardia: (6) Ischemic cardiomyopathy: (7) CAD (coronary artery disease): (8) S/P coronary artery stent placement: (9) LBBB (left bundle branch block): (10) Aortic regurgitation: (11) Benign essential hypertension: (12) Dilated aortic root: (13) Mitral regurgitation: Plan 1. NSTEMI: Troponin continues to rise. Has had intermittent angina. Cardiac catheterization recommended. Risks and benefits were discussed with her in detail. Continue heparin drip. Cath is not urgent as she is currently free from angina and would be unable to tolerate supine positioning for cath without more significant respiratory support. If she should have angina that does not resolve with medical therapy quickly, would recommend urgent cardiac catheterization. 2. Acute heart failure with reduced EF: She appears hypervolemic. New diagnosis. Lasix 40 mg IV x1. We will try to diurese at least 1 to 2 L negative net fluid balance today. Consider further diuretic this evening if necessary. Continue home dose of metoprolol succinate but will titrate later. Continue losartan today but will likely replace with Entresto later this hospitalization. Start spironolactone 25 mg daily. Consider SGLT2 inhibitor b efore discharge. Strict I's and O's. Daily weights. Low-sodium diet less than 2000 mg daily. 3. Wide-complex tachycardia/SVT: QRS morphology similar to baseline, and dissimilar to PVCs. Likely SVT. She did not tolerate the rhythm well, in the setting of heart failure and significantly reduced LV systolic function. Amiodarone initiated to try to maintain sinus rhythm. 4. Paroxysmal atrial fibrillation: Amiodarone initiated as above as she was not tolerating the arrhythmia well in the setting of HF and severely reduced systolic function. Monitor transaminase levels and TSH while on amiodarone. Anticoagulation for stroke risk reduction recommended. Currently on heparin drip. Would consider Eliquis on discharge. 5. Cardiomyopathy: Mildly reduced LV systolic function in the past but now severely reduced. Unclear if ischemic but has history of CAD. Recommend cardiac catheterization. Medical therapy as above. If nonischemic, and if LV systolic function does not significantly improve with medical therapy over time, would consider biventricular ICD as dyssynchrony may be playing a role. 6. CAD s/p LAD PCI: Describing intermittent angina. It does not appear as though the angina always occurs in the setting of her arrhythmia given lack of palpitations at times with angina. Cardiac catheterization recommended as above. She had RCA disease and branch vessel disease in 2020 as well following LAD stent. Continue aspirin 81 mg daily indefinitely. Continue beta-mary. Continue high intensity statin therapy. 7. Hypertension: Blood pressure reasonably controlled. Plan as above. 8. Dilated aortic root and ascending aorta: Chronic issue. Continue beta- mary. No indication for surgical intervention at this time. 9. Aortic and mitral regurgitation: Nonsevere. Chronic. Follow over time. 10. LBBB: Chronic. If LV systolic function does not significantly improve with medical therapy +/- revascularization, would consider biventricular ICD. 11. Disposition: Primary hospitalist, Dr. Victoria, was contacted and updated on cardiology plan of care. Patient's family called as per patient request and discussed via speaker phone ([id number], Rachael). Cardiology will continue to follow. Highly complex medical issues. Thank you for allowing me to participate in the care of your patient. Please call for any other questions or concerns. Sincerely, Doug Welch M.D. History of Present Illness Reason for Consultation: Arrhythmia. Elevated troponin. Requesting Physician: Dr. Garcia Attending Physician: Katlin Victoria MD History of Present Illness Mrs Melgar is a very pleasant 82-year-old female with history significant for CAD s/p LAD PCI, dilated aortic root/ascending aorta, aortic regurgitation, tric uspid regurgitation, mitral regurgitation, hypertension, and dyslipidemia. She had NSTEMI in November of 2019. Angina described as left-sided chest heaviness with radiation to the left arm. Peak troponin was 7.65. She underwent PCI of LAD. Medical therapy was recommended for RCA disease. She has had the following studies/procedures: 1. Echo 09/27/2017: Normal LV size, wall motion, systolic function. EF 60- 65%. Mild LVH. Mild to moderate eccentric AI. Mild MR. Moderate to severe TR. Aortic root 4.2 cm. Ascending aorta 4.1 cm. Circular structure posterior to left atrium and adjacent to descending thoracic aorta. RVSP 42. 2. Echo 05/13/2019: Reported normal LV size, wall motion, systolic function. EF 60-65%. Moderate to severe AI. Mild MR. Moderate TR. Mild aortic root d ilation. 3. Nuclear stress 07/24/2019: Reversible base to mid inferolateral perfusion defect consistent with circumflex ischemia. May represent artifact from diaphragmatic attenuation. Small fixed apical anterior/septal perfusion defect consistent with LBBB. EF 52%. Hypokinetic apical septum. 4. Echo 11/15/2019: Normal LV size with EF 40-45%. Apical akinesis with severe mid anteroseptal, septal, and inferior hypokinesis. Aortic root/ascending aorta 4.5 cm. Moderate to severe AI. Moderate TR. PASP 30-35. 5. Cardiac catheterization 11/14/2019: Mid LAD 90%. Heavily calcified LAD. D2 ostial-prox 60%. Heavily calcified circumflex. Small distal circumflex 40%. Chronically OM 2 100%, filling retrograde via [id number] collaterals. Heavily calcified RCA with mid to distal 60-70% stenosis. LVEDP 12. LAD underwent PCI with 2.25 x 18 mm nam and 2.25 x 12 mm nam drug-eluting stents. 6. Echo 02/10/2020: Low-normal LV systolic function. EF 50%. Hypokinesis of the mid and distal anterior wall and adjacent anteroseptum. Mild to moderate AI. Mild MR. Mild TR. Aortic root 4.4 cm. Ascending aorta 4.5 cm. 7. Echo 03/15/2021 [facility]: Normal LV size. EF 50-55%. No regional wall motion abnormalities. Mild LVH. Mild to moderate AI. Mild MR. Mild to moderate TR. RVSP 33. Aortic root 4.3 cm. Ascending aorta 4.3 cm. 8. Echo 04/11/2022 [facility]: Normal LV size. EF 45-50%. Abnormal septal motion consistent with bundle-branch block. Sclerotic aortic valve. Moderate AI. Mild to moderate MR. RVSP 40-50. Aortic root 4.3 cm. Ascending aorta 4.3 cm. She was admitted on 03/31/2023 with palpitations and shortness of breath. She has noted dyspnea on exertion for the past few months and noted that if she would slow down her pace, she could tolerate her breathing better and go further distances. Last week she had an episode of substernal chest heaviness which radiated to her bilateral arms. She took nitroglycerin which quickly resolved her discomfort. She had no associated shortness of breath. The discomfort occurred at rest. There was no associated palpitations. She had sent a message to the office that she had been experiencing palpitations. An event monitor was scheduled this week but she was advised to go to the emergency department for persistent or worsening symptoms. The morning of presentation, she had shortness of breath and palpitations. There was no chest discomfort. Her initial ECG on 03/31/2023 at 2122, suggested A-fib with RVR at 118 bpm with LBBB and PVCs versus aberrantly conducted complexes. She converted to sinus rhythm at 2131. Then she became acutely short of breath on 04/01/2023 at 4:53 AM. She was noted to have a wide-complex tachycardia, likely SVT as the morphology of her QRS complexes resembled her baseline. When reviewing telemetry, the arrhythmia initiated with a PVC and terminated with a PVC. She was given intravenous metoprolol x2 doses according to nocturnal hospitalist note. She has orthopnea which developed here. She feels short of breath sitting in bed but feels much better sitting upright. She was placed on supplemental oxygen via nursing staff. Overall, the palpitations began in mid March and therefore seem to be a new development. She had recurrent chest discomfort while in route to the hospital, with palpitations. She denies chest pain currently. She denies syncope, near syncope, edema, or bleeding such as melena, hematochezia, or hematuria. She denies fevers. Review of systems:As above. Review of systems otherwise negative/unremarkable. Family history: Father at the age of 68 but did not see a doctor regularly. Her older sister at the age of 55 in 1983 while hospitalized undergoing a valve replacement. Social history: She denies tobacco, alcohol, or drug abuse. She is and lives at home with her . She has 1 adopted son. No grandchildren. She is retired from office work. She was alone in her hospital room. Allergies Allergy/AdvReac Type Severity Reaction Status Date / Time No Known Drug Allergies Allergy NKDA Verified 03/31/23 22:53 Home Medications Medication Instructions Recorded Confirmed Type calcium carbonate 600 mg-vitamin 1 tab PO BID #180 tabs 04/21/19 03/31/23 Rx D3 10 mcg (400 unit) tablet (Calcium with Vitamin D) acetaminophen 650 mg 650 mg PO HS 11/14/19 03/31/23 History tablet,extended release (Tylenol Arthritis Pain) aspirin 81 mg tablet,delayed 81 mg PO QAM #30 tabs 11/16/19 03/31/23 Rx release (Ecotrin Low Strength) multivitamin with minerals 1 tab PO 3XWK 09/30/21 03/31/23 History atorvastatin 40 mg tablet 40 mg PO QAM #90 tabs 09/22/22 03/31/23 Rx isosorbide mononitrate 30 mg 30 mg PO HS #90 tabs 09/22/22 03/31/23 Rx tablet,extended release 24 hr metoprolol succinate 50 mg 50 mg PO HS #90 tabs 09/22/22 03/31/23 Rx tablet,extended release 24 hr nitroglycerin 0.4 mg sublingual 0.4 mg sublingual PRN PRN chest 11/07/22 03/31/23 Rx tablet (Nitrostat) pain #25 tabs amlodipine 5 mg tablet 5 mg PO HS #90 tabs 11/23/22 03/31/23 Rx losartan 100 mg tablet 100 mg PO QAM #90 tabs 12/20/22 03/31/23 Rx Patient History Medical History Abnormal mammogram Aortic regurgitation Benign essential hypertension CAD (coronary artery disease) Chronic hepatitis Dilated aortic root Generalized osteoarthritis of multiple sites Hyperlipidemia Ischemic cardiomyopathy LBBB (left bundle branch block) Mitral regurgitation Postmenopausal osteoporosis Tricuspid regurgitation Vitamin D deficiency Surgical History H/O breast biopsy S/P cardiac catheterization 11/14/19 Dr. Win Ruiz- 2 DARLINE to mid LAD S/P colonoscopy S/P coronary artery stent placement S/P hysterectomy S/P knee replacement Family History Sister Coronary heart disease Father Coronary heart disease Denies family history of Ovarian cancer Prostate cancer Myocardial infarction Breast cancer Lung cancer Colorectal cancer Social History Smoking Status: Never smoker Second Hand Exposure: Yes; Do You Dip or Chew Tobacco: No; Tobacco Cessation Education Requested by Patient: No Hx Alcohol Use: Yes Alcohol type: wine Alcohol Intake Frequency: Monthly or Less Hx Substance Use: No Preferred Language: Bengali Communication Ability: Effective Visual Impairment: Limited Hearing Ability: Normal Steeping Press Tender Required: No Beliefs That Will Affect Care: None marital status: Current Living Situation: Spouse current occupational status: retired How many Children do You have: 1 Other Information That Helps Us Care for You: No Feels Safe at Home: Yes Safety Concerns: Feels Safe At This Time Childhood Exposure to Second-Hand Smoke: Yes ( smoked) Diet: regular Diet Comment: Low fat diet caffeine: Yes (coffee 2 cups in the morning) during the past year weight has: remained stable Dental Care, Regularly: Yes Physical Activity Frequency: 3-4 Times per Week Physical Activity Frequency Comment: walking when the weather is nice. Seatbelt Use: always Sunscreen Use: Yes Do you think of yourself as: straight/heterosexual Gender Identity: Female Assistive Devices: Glasses Physical Exam Physical Exam: Gen.: No acute distress. Alert and oriented. HEENT: Anicteric sclera. Neck: Elevated JVD. Hepatojugular reflux noted. No bruits. Normal carotid u pstrokes bilaterally. Cardiac: No ventricular heave. Regular. Normal S1-S2. 1/6 diastolic murmur. Pulmonary: Rales and expiratory wheezing noted in bilateral lung higuera. Abdomen: Soft, nontender, nondistended, with normoactive bowel sounds. No bruits noted. Extremities: Very weak right radial pulse. 2+ left radial pulse. 1+ dorsalis pedis pulses bilaterally. No edema or cyanosis. Psychiatric: Affect appears appropriate. Results & Data Vital Signs (Past 12 Hours) Vital Signs Temp Pulse Pulse Resp BP BP BP 04/01/23 10:58 36.6 C 83 22 132/67 04/01/23 07:43 36.4 C L 81 18 134/80 04/01/23 04:52 188 H 04/01/23 04:54 181 H 04/01/23 05:04 136 H 04/01/23 01:37 98 H 04/01/23 05:20 70 128/75 04/01/23 05:05 139 H 158/82 H 04/01/23 04:58 177 H 136/88 04/01/23 03:51 36.5 C 87 18 140/79 04/01/23 01:17 36.5 C 98 H 16 125/91 04/01/23 00:47 92 H 16 135/88 03/31/23 23:30 96 H 18 138/69 Pulse Ox O2 Del Method O2 Flow Rate 04/01/23 10:58 94 Nasal Cannula 2 04/01/23 07:43 91 Room Air 04/01/23 04:52 04/01/23 04:54 04/01/23 05:04 04/01/23 01:37 04/01/23 05:20 04/01/23 05:05 04/01/23 04:58 04/01/23 03:51 92 Room Air 04/01/23 01:17 97 Room Air 04/01/23 00:47 93 Room Air 03/31/23 23:30 96 Room Air Intake & Output 03/30/23 03/31/23 04/01/23 04/02/23 06:59 06:59 06:59 06:59 Intake Total 700 / 700 100 / 100 Output Total 351 / 351 Balance 700 / 700 -251 / -251 Weight 144 lb 2.917 oz Laboratory Results Laboratory Results - last 24 hr 03/31/23 03/31/23 03/31/23 21:30 21:30 21:30 WBC 9.89 RBC 4.18 L Hgb 13.3 Hct 39.6 MCV 94.7 MCH 31.8 MCHC 33.6 RDW Std Deviation 43.2 RDW Coeff of Leanne 12.4 Plt Count 262 MPV 10.4 Immature Gran % (Auto) 0.3 Neut % (Auto) 76.8 Lymph % (Auto) 15.9 Warren % (Auto) 6.3 Eos % (Auto) 0.3 Baso % (Auto) 0.4 Neut # (Auto) 7.60 H Lymph # (Auto) 1.57 Warren # (Auto) 0.62 H Eos # (Auto) 0.03 Baso # (Auto) 0.04 Immature Gran # (Auto) 0.03 PT INR APTT PTT Ratio Sodium 136 Potassium 3.8 Chloride 103 Carbon Dioxide 20 L Anion Gap 13 H BUN 23 Creatinine 1.04 Est Cr Clr Drug Dosing 35.4 Est GFR ( Amer) 57.5 Est GFR (Non-Af Amer) 49.6 BUN/Creatinine Ratio 22.1 H Glucose 196 H Calcium 9.5 Magnesium 1.9 Total Bilirubin 2.3 H Direct Bilirubin AST 27 ALT 19 Alkaline Phosphatase 52 Troponin I High Sens 99.4 H* B-Natriuretic Peptide Total Protein 7.2 Albumin 4.4 Globulin 2.8 Albumin/Globulin Ratio 1.6 TSH 3.504 SARS-CoV-2, RNA, NAAT 03/31/23 03/31/23 03/31/23 21:30 22:56 23:50 WBC RBC Hgb Hct MCV MCH MCHC RDW Std Deviation RDW Coeff of Leanne Plt Count MPV Immature Gran % (Auto) Neut % (Auto) Lymph % (Auto) Warren % (Auto) Eos % (Auto) Baso % (Auto) Neut # (Auto) Lymph # (Auto) Warren # (Auto) Eos # (Auto) Baso # (Auto) Immature Gran # (Auto) PT 10.7 INR 1.0 APTT 27.7 PTT Ratio 1.0 Sodium Potassium Chloride Carbon Dioxide Anion Gap BUN Creatinine Est Cr Clr Drug Dosing Est GFR ( Amer) Est GFR (Non-Af Amer) BUN/Creatinine Ratio Glucose Calcium Magnesium Total Bilirubin Direct Bilirubin AST ALT Alkaline Phosphatase Troponin I High Sens 299.5 H* D B-Natriuretic Peptide Total Protein Albumin Globulin Albumin/Globulin Ratio TSH SARS-CoV-2, RNA, NAAT NEGATIVE 04/01/23 04/01/23 04/01/23 05:07 05:07 05:07 WBC 10.03 RBC 4.08 L Hgb 13.2 Hct 38.9 MCV 95.3 MCH 32.4 MCHC 33.9 RDW Std Deviation 43.8 RDW Coeff of Leanne 12.5 Plt Count 264 MPV 10.2 Immature Gran % (Auto) Neut % (Auto) Lymph % (Auto) Warren % (Auto) Eos % (Auto) Baso % (Auto) Neut # (Auto) Lymph # (Auto) Warren # (Auto) Eos # (Auto) Baso # (Auto) Immature Gran # (Auto) PT INR APTT PTT Ratio Sodium 133 L Potassium 3.9 Chloride 104 Carbon Dioxide 21 Anion Gap 8 BUN 24 H Creatinine 0.77 Est Cr Clr Drug Dosing 47.8 Est GFR ( Amer) 82.8 Est GFR (Non-Af Amer) 71.4 BUN/Creatinine Ratio 31.2 H Glucose 183 H Calcium 8.7 Magnesium Total Bilirubin 2.1 H Direct Bilirubin 0.2 AST 38 ALT 19 Alkaline Phosphatase 51 Troponin I High Sens 2037.9 H* D Cancelled B-Natriuretic Peptide Total Protein 6.8 Albumin 4.2 Globulin Albumin/Globulin Ratio TSH SARS-CoV-2, RNA, NAAT 04/01/23 04/01/23 04/01/23 09:39 10:36 13:01 WBC RBC Hgb Hct MCV MCH MCHC RDW Std Deviation RDW Coeff of Leanne Plt Count MPV Immature Gran % (Auto) Neut % (Auto) Lymph % (Auto) Warren % (Auto) Eos % (Auto) Baso % (Auto) Neut # (Auto) Lymph # (Auto) Warren # (Auto) Eos # (Auto) Baso # (Auto) Immature Gran # (Auto) PT INR APTT Pending PTT Ratio Pending Sodium Potassium Chloride Carbon Dioxide Anion Gap BUN Creatinine Est Cr Clr Drug Dosing Est GFR ( Amer) Est GFR (Non-Af Amer) BUN/Creatinine Ratio Glucose Calcium Magnesium Total Bilirubin Direct Bilirubin AST ALT Alkaline Phosphatase Troponin I High Sens 4359.6 H* D B-Natriuretic Peptide 1320 H Total Protein Albumin Globulin Albumin/Globulin Ratio TSH SARS-CoV-2, RNA, NAAT Diagnostic Findings Telemetry personally reviewed: Initially atrial fibrillation but converted to sinus rhythm on 03/31/2023 at 2132. Episode of wide-complex tachycardia, likely SVT as QRS morphology remains similar to baseline left bundle branch block. PVCs noted. The SVT was sustained from 4:52 AM to 5:04 AM. ECGs personally reviewed as noted above in HPI. Labs reviewed and notable for elevated BNP, mild hyponatremia (chronic), normal potassium, normal renal function, normal blood counts, normal TSH, normal transaminase levels. High-sensitivity troponin is elevated and climbing. Echo preliminary review: Severely reduced LV systolic function, worsened from previous echo on 04/11/2022. Formal review to follow. Chest x-ray personally reviewed: No obvious infiltrate on personal review. Chronic interstitial thickening per radiology similar to prior. Medications Administered Current Inpatient Medications Acetaminophen (Acetaminophen 325 Mg Tab) 650 mg PO Q4H PRN PRN Reason: Pain or Fever Stop: 05/01/23 01:16 Amlodipine Besylate (Amlodipine Besylate 5 Mg Tab) 5 mg PO [facility] Stop: 05/01/23 20:59 Aspirin (Aspirin 81 Mg Ectab) 81 mg PO [facility] Stop: 05/01/23 08:59 Last Admin: 04/01/23 08:37 Dose: 81 mg Atorvastatin Calcium (Atorvastatin 40 Mg Tab) 40 mg PO [facility] Stop: 05/01/23 08:59 Last Admin: 04/01/23 08:36 Dose: 40 mg Furosemide (Furosemide 40 Mg/4 Ml Vial) 40 mg IV [facility] Stop: 05/02/23 08:59 Heparin Sodium/Dextrose (Heparin Sodium/Dextrose) 25,000 units in 500 mls @ 21 mls/hr IV .[id number] [facility]; Protocol Stop: 05/01/23 06:29 Last Admin: 04/01/23 07:07 Dose: 1,050 units/hr, 21 mls/hr Amiodarone HCl/Dextrose (Nexterone / D5w) 360 mg in 200 mls @ 16.667 mls/hr IV .Q12H [facility] Stop: 05/01/23 14:12 Amiodarone HCl/Dextrose (Nexterone / D5w) 360 mg in 200 mls @ 33.333 mls/hr IV ONE ONE Stop: 04/01/23 14:12 Last Admin: 04/01/23 08:42 Dose: 1 mg/min, 33.3 mls/hr Isosorbide Mononitrate (Isosorbide Warren Extended Rel 30 Mg Tabcr) 30 mg PO [facility] Stop: 05/01/23 20:59 Losartan Potassium (Losartan Potassium 50 Mg Tab) 100 mg PO [facility] Stop: 05/01/23 08:59 Last Admin: 04/01/23 08:37 Dose: 100 mg Metoprolol Succinate (Metoprolol Succ 50mg Ext Rel Tab) 50 mg PO [facility] Stop: 05/01/23 20:59 Metoprolol Tartrate (Metoprolol Tartrate 1 Mg/Ml Vial) 5 mg IV Q5M PRN PRN Reason: hr>120 Spironolactone (Spironolactone 25 Mg Tab) 25 mg PO [facility] Stop: 05/01/23 09:29 Last Admin: 04/01/23 10:44 Dose: 25 mg PG Care Time/CCT Total # of Minutes Spent Total Time Spent with Patient: Total time spent is greater than 50% in coordination of care (as documented) at patient's floor/unit and/or counseling patient: Coding Level of Care Code 01402 INT INP/OBS CARE 3/75MIN Diagnoses Non-ST elevation (NSTEMI) myocardial infarction I21.4 Acute HFrEF (heart failure with reduced ejection fraction) I50.21 Paroxysmal atrial fibrillation I48.0 SVT (supraventricular tachycardia) I47.1 Wide-complex tachycardia R00.0 Ischemic cardiomyopathy I25.5 CAD (coronary artery disease) I25.10 S/P coronary artery stent placement Z95.5 LBBB (left bundle branch block) I44.7 Aortic regurgitation I35.1 Benign essential hypertension I10 Dilated aortic root I77.810 Mitral regurgitation I34.0
[2023-04-01] MEDS: AMIODARONE / D5W 360 MG/200 ML BAG IV SCH (14:12)
--- NOTE | 2023-04-01 14:19 | XCELERA ---
[id number] \\[id number]
[2023-04-01 14:24] LABS: Partial Thromboplastin Ratio > 4.9
[2023-04-01 14:30] LABS: Partial Thromboplastin Time > 139.0 Seconds (21.0-31.0)
[2023-04-01 17:43] LABS: Partial Thromboplastin Ratio 1.2; Partial Thromboplastin Time 33.8 Seconds (21.0-31.0)
[2023-04-01 18:19] LABS: Partial Thromboplastin Time 29.2 Seconds (21.0-31.0)
[2023-04-01] MEDS: METOPROLOL SUCC 50MG EXT REL TAB PO SCH (19:59)
[2023-04-01] MEDS: amLODIPine BESYLATE 5 MG TAB PO SCH (20:00)
[2023-04-01] MEDS: ISOSORBIDE MONO EXTENDED REL 30 MG TABCR PO SCH (20:00)
[2023-04-01] MEDS: FUROSEMIDE 40 MG/4 ML VIAL IV SCH (20:02)
[2023-04-02 00:56] LABS: Partial Thromboplastin Ratio 1.6
[2023-04-02 01:02] LABS: Partial Thromboplastin Time 46.4 Seconds (21.0-31.0)
[2023-04-02] MEDS: AMIODARONE / D5W 360 MG/200 ML BAG IV SCH ×2 (01:12→12:46)
[2023-04-02 06:36] LABS: Calcium 7.9 mg/dl (8.6-10.3); Creatinine Clr Calc Pharmacy 49.1 ml/min; Est GFR (African American) 85.4 ml/min; Est GFR (Non-African American) 73.7 ml/min; Potassium 3.5 mmol/L (3.5-5.1)
[2023-04-02 07:01] LABS: Partial Thromboplastin Ratio 1.7
[2023-04-02 07:14] LABS: Partial Thromboplastin Time 46.9 Seconds (21.0-31.0)
[2023-04-02] MEDS: ASPIRIN 81 MG ECTAB PO SCH (08:13)
[2023-04-02] MEDS: ATORVASTATIN 40 MG TAB PO SCH (08:14)
[2023-04-02] MEDS: SPIRONOLACTONE 25 MG TAB PO SCH (08:14)
[2023-04-02] MEDS: FUROSEMIDE 40 MG/4 ML VIAL IV SCH (08:15)
[2023-04-02] MEDS: LOSARTAN POTASSIUM 50 MG TAB PO SCH (08:16)
[2023-04-02] MEDS ORDERED: FUROSEMIDE 40 MG/4 ML VIAL IV SCH (09:00)
--- NOTE | 2023-04-02 10:06 | Cardiology Progress Note ---
Date of Service April 02, 2023 Assessment & Plan (1) Non-ST elevation (NSTEMI) myocardial infarction: (2) CAD (coronary artery disease): (3) Acute HFrEF (heart failure with reduced ejection fraction): (4) Paroxysmal atrial fibrillation: (5) SVT (supraventricular tachycardia): (6) Wide-complex tachycardia: (7) Ischemic cardiomyopathy: (8) S/P coronary artery stent placement: (9) LBBB (left bundle branch block): (10) Aortic regurgitation: (11) Benign essential hypertension: (12) Dilated aortic root: (13) Mitral regurgitation: Plan 1. NSTEMI: Peak troponin was 4359. No angina since initial consultation. Has had intermittent angina prior. Recommended cardiac catheterization today as she is doing better from a respiratory standpoint. Risk and benefits were discussed with her in detail and she was agreeable to proceed. 2. Acute heart failure with reduced EF: Volume status appears improved. Continue diuretic. Continue home dose of metoprolol succinate but will titrate later. Recommend replacing ARB with Entresto. Spironolactone initiated. Consider SGLT2 inhibitor before discharge. Strict I's and O's. Daily weights. Low-sodium diet less than 2000 mg daily. 3. Wide-complex tachycardia/SVT: QRS morphology similar to baseline, and dissimilar to PVCs. Likely SVT. She did not tolerate the rhythm well, in the setting of heart failure and significantly reduced LV systolic function. Amiodarone initiated to try to maintain sinus rhythm. Start p.o. amiodarone in place of IV. Amiodarone 400 mg twice daily for 7 days and then 200 mg daily. 4. Paroxysmal atrial fibrillation: Amiodarone initiated as above as she was not tolerating the arrhythmia well in the setting of HF and severely reduced systolic function. Monitor transaminase levels and TSH while on amiodarone. Anticoagulation for stroke risk reduction recommended. Currently on heparin drip. Would consider Eliquis on discharge. 5. Cardiomyopathy: Mildly reduced LV systolic function in the past but now severely reduced. Unclear if ischemic but has history of CAD. Recommend cardiac catheterization. Medical therapy as above. If LV systolic dysfunction does not improve with medical therapy and possible revascularization, would consider biventricular ICD. 6. CAD s/p LAD PCI: Has had intermittent angina leading to this hospitalization. It does not appear as though the angina always occurs in the setting of her arrhythmia given lack of palpitations at times with angina. Cardiac catheterization recommended as above. She had RCA disease and branch vessel disease in 2020 as well following LAD stent. Continue aspirin 81 mg daily indefinitely. Continue beta-mary. Continue high intensity statin therapy. 7. Hypertension: Blood pressure reasonably controlled. Plan as above. 8. Dilated aortic root and ascending aorta: Chronic issue. Continue beta-mary. No indication for surgical intervention at this time. 9. Aortic and mitral regurgitation: Nonsevere. Chronic. Follow over time. 10. LBBB: Chronic. If LV systolic function does not significantly improve with medical therapy +/- revascularization, would consider biventricular ICD. Addendum: She underwent cardiac catheterization, which demonstrated occluded circumflex, occluded RCA, and moderate to severe CAD involving the LAD. The LAD provides collaterals to the RCA PDA, and circumflex/OM territory. Filling pressures are mildly elevated. Recommend transfer to CT surgery capable center to consider CABG. Dr. Cheng of CT surgery at [facility] has accepted her in transfer. Appreciate his assistance. Discussed in detail with patient and several family members (son, [id number], , and others). She tolerated the procedure well. If not candidate for revascularization, would continue to titrate appropriate medical therapy as noted above. 11. Disposition: Primary hospitalist, Dr. Victoria, was contacted and updated on cardiology plan of care. Patient's family called as per patient request and discussed via speaker phone ([id number], Rachael). Cardiology will con tinue to follow while here. Highly complex medical issues. Admission and Anticipated Discharge Date Admission Date: March 31, 2023 Subjective Patient was seen today with her [id number], Rachael, at the bedside. Her breathing improved. She was able to lay flat in bed without orthopnea or paroxysmal nocturnal dyspnea. She denies shortness of breath, syncope, near syncope, recurrent palpitations, chest pain, edema, or bleeding. Overall, feeling better today but still on supplemental oxygen. Physical Exam Physical Exam: Gen.: No acute distress. Alert and oriented. HEENT: Anicteric sclera. Neck: Mild JVD. Cardiac: No ventricular heave. Regular. Normal S1-S2. No audible murmur today. Pulmonary: Bibasilar Rales. No audible wheezing today. Abdomen: Soft, nontender, nondistended, with normoactive bowel sounds. No bruits noted. Extremities: Right radial pulse was not palpable. 2+ left radial pulse. 1+ dorsalis pedis pulses bilaterally. No edema or cyanosis. Psychiatric: Affect appears appropriate. Results & Data Vital Signs (Past 12 Hours) Vital Signs Temp Pulse Pulse Pulse Resp BP BP 04/02/23 07:30 04/02/23 07:57 36.4 C L 68 18 117/68 04/02/23 01:17 04/01/23 23:37 72 04/02/23 03:00 36.5 C 64 16 100/60 04/01/23 22:57 36.8 C 77 19 114/69 Pulse Ox Pulse Ox O2 Del Method O2 Del Method O2 Flow Rate O2 Flow Rate 04/02/23 07:30 Nasal Cannula 2 04/02/23 07:57 95 Nasal Cannula 2 04/02/23 01:17 94 Nasal Cannula 2 04/01/23 23:37 04/02/23 03:00 94 Nasal Cannula 2 04/01/23 22:57 94 Nasal Cannula 2 Intake & Output 03/31/23 04/01/23 04/02/23 04/03/23 06:59 06:59 06:59 06:59 Intake Total 700 / 700 1503.29 / 1503.29 Output Total 2151 / 2151 Balance 700 / 700 -647.71 / -647.71 Weight 144 lb 2.917 oz 144 lb 9.972 oz Laboratory Results Laboratory Results - last 24 hr 04/01/23 04/01/23 04/01/23 09:39 10:36 13:01 APTT > 139.0 H* PTT Ratio > 4.9 Sodium Potassium Chloride Carbon Dioxide Anion Gap BUN Creatinine Est Cr Clr Drug Dosing Est GFR ( Amer) Est GFR (Non-Af Amer) BUN/Creatinine Ratio Glucose Calcium Troponin I High Sens 4359.6 H* D B-Natriuretic Peptide 1320 H 04/01/23 04/01/23 04/01/23 16:47 17:39 23:48 APTT 33.8 H 29.2 46.4 H* PTT Ratio 1.2 1.0 1.6 Sodium Potassium Chloride Carbon Dioxide Anion Gap BUN Creatinine Est Cr Clr Drug Dosing Est GFR ( Amer) Est GFR (Non-Af Amer) BUN/Creatinine Ratio Glucose Calcium Troponin I High Sens B-Natriuretic Peptide 04/01/23 04/02/23 04/02/23 23:48 05:47 05:47 APTT 46.9 H* PTT Ratio 1.7 Sodium 127 L Potassium 3.5 Chloride 93 L Carbon Dioxide 24 Anion Gap 10 BUN 18 Creatinine 0.75 Est Cr Clr Drug Dosing 49.1 Est GFR ( Amer) 85.4 Est GFR (Non-Af Amer) 73.7 BUN/Creatinine Ratio 24.0 H Glucose 127 H Calcium 7.9 L Troponin I High Sens 4158.2 H* B-Natriuretic Peptide Diagnostic Findings Telemetry personally reviewed: Sinus rhythm. Echo 04/01/2023: EF 20 to 25%. Akinesis of the inferolateral wall, base to mid a nterolateral wall, basal inferior wall, and mid anteroseptum. Otherwise global hypokinesis. Mildly dilated LV. Severe left atrial dilation. Mild to moderate AI. Mild MR. RVSP 46. Aortic root 4.5 cm. Ascending aorta 4.4 cm. Labs reviewed from 04/02/2023: Hyponatremia, stable renal function. High- sensitivity troponin peaked at 4359 on 04/01/2023. Medications Administered Current Inpatient Medications Acetaminophen (Acetaminophen 325 Mg Tab) 650 mg PO Q4H PRN PRN Reason: Pain or Fever Stop: 05/01/23 01:16 Amlodipine Besylate (Amlodipine Besylate 5 Mg Tab) 5 mg PO [facility] Stop: 05/01/23 20:59 Last Admin: 04/01/23 20:00 Dose: 5 mg Aspirin (Aspirin 81 Mg Ectab) [facility] [place] Stop: 05/01/23 08:59 Last Admin: 04/02/23 08:13 Dose: 81 mg Atorvastatin Calcium (Atorvastatin 40 Mg Tab) 40 mg PO QAM ON LICENSE OF [facility] Stop: 05/01/23 08:59 Last Admin: 04/02/23 08:14 Dose: 40 mg Furosemide (Furosemide 40 Mg/4 Ml Vial) 40 mg IV BID ON LICENSE OF [facility] Stop: 05/01/23 20:59 Last Admin: 04/02/23 08:15 Dose: 40 mg Heparin Sodium/Dextrose (Heparin Sodium/Dextrose) 25,000 units in 500 mls @ 15 mls/hr IV .Q24H RENATA; Protocol Stop: 05/01/23 06:29 Last Titration: 04/02/23 06:57 Dose: 750 units/hr, 15 mls/hr Amiodarone HCl/Dextrose (Nexterone / D5w) 360 mg in 200 mls @ 16.667 mls/hr IV .Q12H ON LICENSE OF [facility] Stop: 05/01/23 14:12 Last Admin: 04/02/23 01:12 Dose: 0.5 mg/min, 16.7 mls/hr Isosorbide Mononitrate (Isosorbide Pima Extended Rel 30 Mg Tabcr) 30 mg PO [facility] Stop: 05/01/23 20:59 Last Admin: 04/01/23 20:00 Dose: 30 mg Losartan Potassium (Losartan Potassium 50 Mg Tab) 100 [facility] [place] [facility] Stop: 05/01/23 08:59 Last Admin: 04/02/23 08:16 Dose: 100 mg Metoprolol Succinate (Metoprolol Succ 50mg Ext Rel Tab) 50 mg PO [facility] Stop: 05/01/23 20:59 Last Admin: 04/01/23 19:59 Dose: 50 mg Metoprolol Tartrate (Metoprolol Tartrate 1 Mg/Ml Vial) 5 mg IV Q5M PRN PRN Reason: hr>120 Spironolactone (Spironolactone 25 Mg Tab) [facility] [place] [facility] Stop: 05/01/23 09:29 Last Admin: 04/02/23 08:14 Dose: 25 mg PG Care Time/CCT Total # of Minutes Spent Total Time Spent with Patient: Total time spent is greater than 50% in coordination of care (as documented) at patient's floor/unit and/or counseling patient: Coding Level of Care Code 44917 SUB INP/OBS CARE 3/50MIN Diagnoses Non-ST elevation (NSTEMI) myocardial infarction I21.4 CAD (coronary artery disease) I25.10 Acute HFrEF (heart failure with reduced ejection fraction) I50.21 Paroxysmal atrial fibrillation I48.0 SVT (supraventricular tachycardia) I47.1 Wide-complex tachycardia R00.0 Ischemic cardiomyopathy I25.5 S/P coronary artery stent placement Z95.5 LBBB (left bundle branch block) I44.7 Aortic regurgitation I35.1 Benign essential hypertension I10 Dilated aortic root I77.810 Mitral regurgitation I34.0
[2023-04-02] MEDS ORDERED: HEPARIN (PORCINE) 1000 UNIT/ML 10 ML (CATH LAB USE ONLY) ONE (11:22)
[2023-04-02] MEDS ORDERED: MIDAZOLAM HCL 1 MG/ML 2ML VIAL ONE (11:22)
[2023-04-02] MEDS ORDERED: niCARdipine HCL INJ 2.5 MG/ML 10 ML AMP ONE (11:22)
[2023-04-02] MEDS ORDERED: fentaNYL citrate PF 100 MCG/2 ML VIAL ONE (11:22)
[2023-04-02] MEDS ORDERED: NITROGLYCERIN/D5W 100MCG/ML 20ML SYR ONE (11:23)
--- NOTE | 2023-04-02 11:35 | Pre Anesthesia Assessment ---
Date of Service April 02, 2023 Pre Sedation Assessment Vital Signs Temp Pulse Pulse Pulse Resp BP BP 04/02/23 11:04 71 16 131/68 04/02/23 10:54 64 04/02/23 07:30 04/02/23 07:57 36.4 C L 68 18 117/68 04/02/23 01:17 04/01/23 23:37 72 04/02/23 03:00 36.5 C 64 16 100/60 04/01/23 22:57 36.8 C 77 19 114/69 04/01/23 20:03 04/01/23 19:56 78 160/76 H 04/01/23 19:00 36.6 C 77 18 158/83 H 04/01/23 16:10 37.1 C 76 20 129/75 04/01/23 15:01 72 04/01/23 12:31 69 Pulse Ox Pulse Ox O2 Del Method O2 Del Method O2 Flow Rate O2 Flow Rate 04/02/23 11:04 98 Nasal Cannula 3 04/02/23 10:54 04/02/23 07:30 Nasal Cannula 2 04/02/23 07:57 95 Nasal Cannula 2 04/02/23 01:17 94 Nasal Cannula 2 04/01/23 23:37 04/02/23 03:00 94 Nasal Cannula 2 04/01/23 22:57 94 Nasal Cannula 2 04/01/23 20:03 95 Nasal Cannula 2 04/01/23 19:56 04/01/23 19:00 96 Nasal Cannula 3 04/01/23 16:10 96 Nasal Cannula 3 04/01/23 15:01 04/01/23 12:31 Cardiovascular + regular rate Respiratory + rales Pre-Sedation Airway Assessment Smoking Status: Never smoker Hx Sleep Apnea: No Hx Difficult Intubation: No Mallampati Class: III ASA: ASA3 NPO Status Date of Last Intake of Fluids: 04/02/23 Time of Last Intake of Fluids: 08:15 Last Oral Intake of Fluids Comment: sips with meds Date of Last Intake of Solid Food: 04/01/23 Time of Last Intake of Solid Foods: 18:00 Procedure Planning Contraindications for Sedation: none Current Medications Reviewed: Yes Notes The planned sedation has been discussed with the patient. Informed Consent was obtained. I have identified the patient, determined the appropriateness of sedation and have assessed the patient immediately prior to the procedure. All medicine(s) and interventions are by my order.
[2023-04-02] MEDS ORDERED: AMIODARONE 360MG / 200ML D5W (CATH LAB USE ONLY) IV ONE (12:44)
--- NOTE | 2023-04-02 13:27 | Cardiac Catheterization ---
[facility] Data: Credit Review Officer Cardiac Status Clinical evaluation leading to the procedure CAD Presenation: Non STEMI Anginal Classification: CCS III Heart Failure: NYHA Class: CCS IV Cardiogenic Shock within 24 Hours: No Cardiac Arrest within 24 Hours: No Imaging Studies Past 6 Months: Yes Stress Studies Past 6 Months: No Coronary Anatomy Dominant: Right Diagnostic Physicians Name: Yonis Welch MD Status: Elective Closure Device Percutaneous Entry Location: Radial Closure Device: Radial Band Recommendations: Management Recommendatons Cardiac Cath Procedure Full Procedure Date April 02, 2023 Pre-Procedure Diagnosis Pre-Procedure Diagnosis: Non STEMI, CHF and Cardiomyopathy AUC Score AUC Score: 8 Post-Procedure Diagnosis Post-Procedure Diagnosis: Severe CAD and Elevated Intracardiac Pressures Procedure(s) Performed Procedure(s) Performed: Coronary Angiography, Left Heart Cath, Right Heart Cath and Ultrasound Guided Vascular Access Sewer Pipe Layer Yonis Welch MD Billing Supervisor(s) Diebler Estimated Blood Loss Estimated Blood Loss: < 30 ml Medication(s) Medication(s): Fentanyl, Heparin, Lidocaine 1%, Nicardipine and Versed Summary of Findings Procedures: 1. Coronary angiography 2. Left heart catheterization 3. Right heart catheterization 4. Ultrasound guidance for vascular access 5. Moderate sedation Indication: Mrs. Melgar is a very pleasant 82-year-old female with known CAD and LAD PCI, chronic LBBB, dilated ascending aorta/root, hypertension, and dyslipidemia. She presented with atrial fibrillation and SVT with acute heart failure with reduced EF and newly diagnosed severely reduced LV systolic function. She also has been experiencing angina. Coronary angiography: 1. No left main coronary artery. Separate ostium for LAD and circumflex. 2. Left anterior descending: Large caliber vessel that extends to the apex. Early mid LAD 40%. Mid LAD stents appear patent. Mid LAD 40%, just proximal of mid LAD stents. Distal LAD, beyond stent margin, approximately 50%. Large D1 proximal 30 to 40%. Medium caliber branching D2 with proximal 50 to 70% and mid 40%. LAD provides robust left to right collaterals to PDA which retrograde fills PL branch. LAD provides left to left collaterals to circumflex/OM. ADDENDUM: Further review, mid LAD concerning for moderate to severe CAD. 3. Circumflex: Mid circumflex 100%. Small caliber OM 1 with mid 70%. Very small OM 2. Very faint left to right collaterals. 4. Right coronary artery: Dominant vessel. Calcifications noted throughout the proximal and mid RCA. Mid RCA 100%. PDA fills via left to right collaterals an d then retrograde fills PL. Left heart catheterization: 1. Left ventriculography was not performed. 2. No aortic stenosis. Peak to peak gradient across the aortic valve was 0. 3. LVEDP 18 mmHg. Right heart catheterization: 1. Right heart catheterization was performed via the right femoral vein. 2. Pulmonary capillary wedge pressure: V wave 17; mean 13 mmHg. 3. Pulmonary artery pressure: 31/16; mean 21 mmHg. 4. RV pressure: 36/4 with EDP 7 mmHg. 5. Right atrial pressure: A-wave 7; V wave 7; mean 5 mmHg. 6. Cardiac output via thermodilution was 3.1 L/min with a cardiac index of 1.82 L/min/m. 7. PVR 2.58 Wood units. Ultrasound guidance for vascular access: 1. Right femoral vein was visualized via ultrasound. Femoral vein was easily cannulated with access needle and 6 Palauan sheath was placed over a wire. Catheters: 1. Left anterior descending artery was selectively engaged with AL 3 (5 Palauan) diagnostic catheter. 2. Circumflex was engaged with 5 Palauan JL 4 diagnostic catheter. 3. RCA was engaged with 5 Palauan JR4 diagnostic catheter. 4. 6 Palauan right heart catheter was used via right femoral vein. The first right heart cath did not maintain balloon inflation, although no leak was detected pre and post procedure. It was replaced with a new catheter to complete the right heart catheterization. Moderate sedation: 1. Sedation start time: 11:53 AM 2. Sedation end time: 1:05 PM Impression: 1. Severe multivessel CAD including occluded circumflex, occluded RCA, and robust left to left and left to right collaterals from the LAD. 2. Patent LAD stents. 3. Probable moderate to severe CAD within the LAD. 4. Mildly elevated filling pressures. 5. Reduced cardiac output. 6. Borderline pulmonary hypertension. Plan: 1. Optimize medical therapy. 2. Discuss possible revascularization options vs medical therapy. Hemodynamics Rest Ao:: 119/67 Final Ao: 101/50 LV: 122/12/18 Recommendations Recommendations: Management Recommendatons Specimens Specimens: None Radiation Exposure (mGy) 1150 mGy. Fluoro tie 22.9 min. Contrast (mls) 75 ml Procedural Complication(s) None Disposition PCU I attest to the content of the Intraoperative Record and any orders documented therein. Any exceptions are noted below. [facility] Card Cath Procedure Codes Cardiac Catheterization Procedure 1: Cardiovascular Cath Procedures: 30899 Coronaries & LHC (+/-LV) & RHC Therapeutic Services & Ancillary Procedure 1: Cardiovascular Tx and Anc Procedures: 93887 Ultrasonic Guidance Vascular Access Moderate Sedation Procedure 1: Sedation/Anesthesia: 09228 Mod Sedation by the same physician;Init15 Min Child Age 5 & Up Procedure 2: Sedation/Anesthesia: 65437 Mod Sedation by the same physician; Ea [id number] Minutes Procedure 3: Sedation/Anesthesia: 27364 Mod Sedation by the same physician; Ea [id number] Minutes Procedure 4: Sedation/Anesthesia: 61451 Mod Sedation by the same physician; Ea [id number] Minutes Procedure 5: Sedation/Anesthesia: 21674 Mod Sedation by the same physician; Ea [id number] Minutes PG Care Time/CCT Total # of Minutes Spent Total Time Spent with Patient: Total time spent is greater than 50% in coordination of care (as documented) at patient's floor/unit and/or counseling patient:
--- NOTE | 2023-04-02 13:42 | Hospitalist Progress Note ---
Date of Service April 02, 2023 Assessment & Plan (1) Acute HFrEF (heart failure with reduced ejection fraction): Plan: -New diagnosis of acute HFrEF -ECHO shows EF20-25% -Cardiac cath done today showed Severe multivessel CAD including occluded circumflex, occluded RCA, and robust left to left and left to right collaterals from the LAD.Patent LAD stents -Continues to diurese well on lasix -Will continue spironolactone, Losartan -Appreciate cardiology recs (2) Wide-complex tachycardia: Plan: -Most Likely SVT. Patient with h/o CAD and ICM. No recent illness. Electrolytes WNL. -Started on Amiodarone infusion -Now sinus rhythm -cardiac cath shows Severe multivessel CAD including occluded circumflex, occluded RCA, and robust left to left and left to right collaterals from the LAD. Patent LAD stents (3) CAD (coronary artery disease): Plan: Known CAD with stent in LAD. Medical therapy for RCA disease cardiac cath shows Severe multivessel CAD including occluded circumflex, occluded RCA, and robust left to left and left to right collaterals from the LAD. Patent LAD stents -Continue ASA 81mg daily -Continue Atorvastatin 40mg daily -Continue Metoprolol -Continue Losartan (4) Ischemic cardiomyopathy: Plan: Cardiac cath Severe multivessel CAD including occluded circumflex, occluded RCA, and robust left to left and left to right collaterals from the LAD. Patent LAD stents Some evidence of fluid overload -Started IV Lasix 40 mg -Continue Metoprolol, change Losartan to Entresto Monitor I/O daily weight -Appreciate cardioloy recs (5) Benign essential hypertension: Plan: Blood pressure adequately controlled -Continue medications as above (6) Hyperlipidemia: Plan: Chronic -Continue Atorvastatin (7) Paroxysmal atrial fibrillation: Plan: continue metoprolol will need anticoagulation on discharge, will defer to cardiology (8) Non-ST elevation (NSTEMI) myocardial infarction: (9) SVT (supraventricular tachycardia): Plan F/E/N - [place]ock. Electrolytes WNL. Heart healthy diet as tolerated Ppx - Lovenox Code - DNR/DNI per discussion with patient Dispo - continue hospitalization Admission and Anticipated Discharge Date Admission Date: March 31, 2023 Subjective patient seen and examined, says shortness of breath has improved, daughter in law by the bed side Review of Systems Review of Systems: All systems reviewed are negative, apart from the ones contained in the history. Physical Exam Physical Exam: The patient is awake, alert and oriented 3, well developed and well nourished, normocephalic and atraumatic, lying in bed and in no acute distress. HEENT--PERRL, EOMI, mucous membranes and oropharynx mildly dry Neck--supple. No JVD. No bruits. Thyroid normal, trachea midline, no adenopathy. Heart--normal S1 and S2. No murmurs, rubs or gallops. Lungs--crackles. Abdomen--normal bowel sounds and soft. Mild epigastric and left sided abdominal pain Extremities--no cyanosis or clubbing. No edema. Dermatologic--normal skin turgor, normal color, no abnormal lymph nodes, no rash. Neurologic--cranial nerves II through XII grossly intact. Rheumatologic--normal range of motion. Psychiatric--normal affect. Results & Data Results & Data Vital Signs (Past 12 Hours) Vital Signs Temp Pulse Pulse Pulse Resp BP BP 04/02/23 13:15 74 16 120/60 04/02/23 13:02 74 16 122/63 04/02/23 11:04 71 16 131/68 04/02/23 10:54 64 04/02/23 07:30 04/02/23 07:57 97.5 F L 68 18 117/68 04/02/23 03:00 97.7 F 64 16 100/60 Pulse Ox O2 Del Method O2 Flow Rate 04/02/23 13:15 98 Room Air 2 04/02/23 13:02 98 Nasal Cannula 2 04/02/23 11:04 98 Nasal Cannula 3 04/02/23 10:54 04/02/23 07:30 Nasal Cannula 2 04/02/23 07:57 95 Nasal Cannula 2 04/02/23 03:00 94 Nasal Cannula 2 PG Care Time/CCT Total # of Minutes Spent Total Time Spent with Patient: Total time spent is greater than 50% in coordination of care (as documented) at patient's floor/unit and/or counseling patient: Coding Level of Care Code 70908 SUB INP/OBS CARE 2/35MIN Diagnoses Acute HFrEF (heart failure with reduced ejection fraction) I50.21 Wide-complex tachycardia R00.0 CAD (coronary artery disease) I25.10 Ischemic cardiomyopathy I25.5 Benign essential hypertension I10 Hyperlipidemia E78.5 Paroxysmal atrial fibrillation I48.0 Non-ST elevation (NSTEMI) myocardial infarction I21.4 SVT (supraventricular tachycardia) I47.1 Time Spent (min) 35
--- NOTE | 2023-04-02 13:52 | Post Anesthesia Assessment ---
Date of Service April 02, 2023 Post Sedation Assessment Vital Signs Temp Pulse Pulse Pulse Resp BP BP 04/02/23 13:15 74 16 120/60 04/02/23 13:02 74 16 122/63 04/02/23 11:04 71 16 131/68 04/02/23 10:54 64 04/02/23 07:30 04/02/23 07:57 36.4 C L 68 18 117/68 04/02/23 01:17 04/01/23 23:37 72 04/02/23 03:00 36.5 C 64 16 100/60 04/01/23 22:57 36.8 C 77 19 114/69 04/01/23 20:03 04/01/23 19:56 78 160/76 H 04/01/23 19:00 36.6 C 77 18 158/83 H 04/01/23 16:10 37.1 C 76 20 129/75 04/01/23 15:01 72 Pulse Ox Pulse Ox O2 Del Method O2 Del Method O2 Flow Rate O2 Flow Rate 04/02/23 13:15 98 Room Air 2 04/02/23 13:02 98 Nasal Cannula 2 04/02/23 11:04 98 Nasal Cannula 3 04/02/23 10:54 04/02/23 07:30 Nasal Cannula 2 04/02/23 07:57 95 Nasal Cannula 2 04/02/23 01:17 94 Nasal Cannula 2 04/01/23 23:37 04/02/23 03:00 94 Nasal Cannula 2 04/01/23 22:57 94 Nasal Cannula 2 04/01/23 20:03 95 Nasal Cannula 2 04/01/23 19:56 04/01/23 19:00 96 Nasal Cannula 3 04/01/23 16:10 96 Nasal Cannula 3 04/01/23 15:01 Recovery Score Activity: Moves 4 extremities Respiration: Deep Breath/Cough Circulation: +/-20% PreAnes Value Consciousness: Fully Awake Oxygen Saturation: > 92% On Room Air Post Anesthesia Score: 10 Discharge Sedation Level of Care: Fast Track Phase II Post Sedation Plan On clinical assessment, the patient appears to have tolerated the sedation without complications. Patient is recovering as anticipated. Patient will continue to be monitored by nursing and may be discharged when sedation discharge criteria are met per below protocol. Upon Completions of procedure up to 15 minutes continue every 5 minute vital signs and the P.A.R. score; then discharge to a Phase I or Fast Track to Phase II per the following guidelines: * Discharge Patient to appropriate Phase II area if PAR is 8 or greater or return to pre- procedure baseline. The post - procedure orders will be as directed. * If PAR score is less than 8 or not return to pre-procedure baseline then patient will follow Phase I monitoring till PAR is reached for Phase II. The Phase I may be done in procedure room or may call to secure a Phase I area. * If naloxone or flumazenil are used for reversal, hold in Phase I for continued monitoring from when last reversal dose was given for a minimum of 60 minutes or longer pending the nurse and/or physician discretion of patient condition before discharge to Phase II. Please call the Sedation Physician to re-evaluate and complete post-note for discharge to Phase II area. Do NOT discharge from procedure sedation or Phase 1 until post- sedation evaluation note is complete by procedure /sedation MD Sedation Discharge Instructions to be given to the patient at discharge to home.
[2023-04-02] MEDS: HEPARIN SODIUM/DEXTROSE 25,000 UNITS/500 ML BAG IV SCH (19:07)
[2023-04-02] MEDS: amLODIPine BESYLATE 5 MG TAB PO SCH (20:16)
[2023-04-02] MEDS: METOPROLOL SUCC 50MG EXT REL TAB PO SCH (20:17)
[2023-04-02] MEDS: ISOSORBIDE MONO EXTENDED REL 30 MG TABCR PO SCH (20:17)
[2023-04-02] MEDS ORDERED: AMIODARONE 200 MG TAB PO SCH (21:00)
--- NOTE | 2023-04-03 06:56 | Electrocardiogram Report ---
Test Reason : Blood Pressure : / mmHG Vent. Rate : 118 BPM Atrial Rate : 000 BPM P-R Int : 000 ms QRS Dur : 162 ms QT Int : 384 ms P-R-T Axes : 000 -53 116 degrees QTc Int : 538 ms Atrial fibrillation with rapid ventricular response with premature ventricular or aberrantly conducte d complexes Left axis deviation Left bundle branch block Abnormal ECG When compared with ECG of 15-NOV-2019 07:11, Atrial fibrillation has replaced Sinus rhythm Vent. rate has increased BY 54 BPM Confirmed by Yonis Welch ([id number]) on 04/03/2023 6:55:54 AM Referred By: REFERRED SELF Confirmed By:Yonis Welch
--- NOTE | 2023-04-03 06:56 | Electrocardiogram Report ---
Test Reason : Blood Pressure : / mmHG Vent. Rate : 097 BPM Atrial Rate : 097 BPM P-R Int : 214 ms QRS Dur : 176 ms QT Int : 406 ms P-R-T Axes : 060 -55 115 degrees QTc Int : 515 ms Sinus rhythm with 1st degree A-V block Possible Left atrial enlargement Left axis deviation Left bundle branch block Abnormal ECG When compared with ECG of 31-MAR-2023 21:23, Sinus rhythm has replaced Atrial fibrillation Confirmed by Yonis Welch ([id number]) on 04/03/2023 6:56:19 AM Referred By: REFERRED SELF Confirmed By:Yonis Welch
--- NOTE | 2023-04-03 07:05 | Electrocardiogram Report ---
Test Reason : Blood Pressure : / mmHG Vent. Rate : 181 BPM Atrial Rate : 182 BPM P-R Int : 000 ms QRS Dur : 246 ms QT Int : 368 ms P-R-T Axes : 000 -71 268 degrees QTc Int : 639 ms Poor data quality, interpretation may be adversely affected Wide QRS tachycardia , probably SVT Left axis deviation Left bundle branch block Abnormal ECG When compared with ECG of 31-MAR-2023 22:09, Supraventricular tachycardia has replaced Sinus rhythm Vent. rate has increased BY 84 BPM Confirmed by Yonis Welch ([id number]) on 04/03/2023 7:04:33 AM Referred By: REFERRED SELF Confirmed By:Yonis Welch
--- NOTE | 2023-04-03 07:05 | Electrocardiogram Report ---
Test Reason : Blood Pressure : / mmHG Vent. Rate : 175 BPM Atrial Rate : 178 BPM P-R Int : 000 ms QRS Dur : 148 ms QT Int : 298 ms P-R-T Axes : 000 -70 109 degrees QTc Int : 508 ms Wide QRS tachycardia , probably SVT Left axis deviation Left bundle branch block Abnormal ECG When compared with ECG of 01-APR-2023 04:53, No significant change was found Confirmed by Yonis Welch ([id number]) on 04/03/2023 7:04:48 AM Referred By: REFERRED SELF Confirmed By:Yonis Welch
--- NOTE | 2023-04-03 07:25 | Discharge Summary ---
Date of Service April 02, 2023 Principal Diagnosis multivessel disease Discharge Exam The patient is awake, alert and oriented 3, well developed and well nourished, normocephalic and atraumatic, lying in bed and in no acute distress. HEENT--PERRL, EOMI, mucous membranes and oropharynx mildly dry Neck--supple. No JVD. No bruits. Thyroid normal, trachea midline, no adenopathy. Heart--normal S1 and S2. No murmurs, rubs or gallops. Lungs--crackles. Abdomen--normal bowel sounds and soft. Mild epigastric and left sided abdominal pain Extremities--no cyanosis or clubbing. No edema. Dermatologic--normal skin turgor, normal color, no abnormal lymph nodes, no ra sh. Neurologic--cranial nerves II through XII grossly intact. Rheumatologic--normal range of motion. Psychiatric--normal affect. Discharge Data Allergies Allergy/AdvReac Type Severity Reaction Status Date / Time No Known Drug Allergies Allergy NKDA Verified 03/31/23 22:53 Consultations 03/31/23 22:52 ED Decision to Admit Stat 04/01/23 01:17 Consult Cardiology Routine 04/02/23 05:43 [facility] CHF Program Referral Routine 04/02/23 16:34 Burn CD for patient Stat Procedures Performed Operation Date: 04/02/23 11:00 Actual Procedures p Cineradiography w/Routine Exam - Yonis Welch MD p Cath, Right and Left Heart - Yonis Welch MD Ordered Studies 04/02/23 11:35 CL Cath Imgs for PACS use only Routine Hospital Course (1) Acute HFrEF (heart failure with reduced ejection fraction): -New diagnosis of acute HFrEF -ECHO shows EF20-25% -Cardiac cath done today showed Severe multivessel CAD including occluded circumflex, occluded RCA, and robust left to left and left to right collaterals from the LAD.Patent LAD stents -Continues to diurese well on lasix -Will continue spironolactone, Losartan -Appreciate cardiology recs (2) Wide-complex tachycardia: -Most Likely SVT. Patient with h/o CAD and ICM. No recent illness. Electrolytes WNL. -Started on Amiodarone infusion -Now sinus rhythm -cardiac cath shows Severe multivessel CAD including occluded circumflex, occluded RCA, and robust left to left and left to right collaterals from the LAD. Patent LAD stents (3) CAD (coronary artery disease): Known CAD with stent in LAD. Medical therapy for RCA disease cardiac cath shows Severe multivessel CAD including occluded circumflex, occluded RCA, and robust left to left and left to right collaterals from the LAD. Patent LAD stents -Continue ASA 81mg daily -Continue Atorvastatin 40mg daily -Continue Metoprolol -Continue Losartan (4) Ischemic cardiomyopathy: Cardiac cath Severe multivessel CAD including occluded circumflex, occluded RCA, and robust left to left and left to right collaterals from the LAD. Patent LAD stents Some evidence of fluid overload -Started IV Lasix 40 mg -Continue Metoprolol, change Losartan to Entresto Monitor I/O daily weight -Appreciate cardioloy recs (5) Benign essential hypertension: Blood pressure adequately controlled -Continue medications as above (6) Hyperlipidemia: Chronic -Continue Atorvastatin (7) Paroxysmal atrial fibrillation: continue metoprolol will need anticoagulation on discharge, will defer to cardiology (8) Non-ST elevation (NSTEMI) myocardial infarction: (9) SVT (supraventricular tachycardia): Plan F/E/N - [place]. Electrolytes WNL. Heart healthy diet as tolerated Ppx - Lovenox Code - DNR/DNI per discussion with patient Dispo - Transfer to [facility] Total Time Total Time Spent Total Time Spent (In Minutes): 35 Discharge Plan Discharge Items Patient Disposition: Transfer Acute Care Hospital Reason For Visit: PALPITATIONS,ARRHYTHMIA Discharge Diagnosis: multivessel disease Activity: Resume your previous activity Non-emergency contact: Primary Care Provider and Gas And Oil Servicer Call non-emergency contact if: you have any medication questions and your symptoms worsen Follow-up/Referrals: Elif Wang DO [Primary Care Provider] - Diet: Regular Addtl Attending Provider Instructions: ACTIVITY RECOMMENDATIONS: Excess manipulation of the wrist should be avoided for the next 24-48 hours. * No lifting over 2 pounds (approximately a 1/2 gallon of milk) with the utilized arm for 24 hours. * No strenuous activity such as bowling or tennis for 3 days. * Keep the site of the procedure covered with a bandage for 24 hours. *You may shower the day after the procedure. Do not take a tub bath or submerge the puncture site in water for the next 3 days. *Do not operate any motorized equipment for 3 days. SPECIAL CARE INSTRUCTIONS: The site may be slightly bruised and sore following your procedure. Should any of the following occur, contact the Dr. who performed your procedure. 1. Redness/inflammation, swelling, chills, or fever, or colored drainage at procedure site within 3-7 days after your procedure. 2. Coldness, discoloration, ongoing numbness, severe pain, or swelling. Expect mild tingling of hand and tenderness at the puncture site for up to three days. If this persists beyond three days, or other symptoms develop, notify the Dr. who performed your procedure. BLEEDING: If the procedure site on your wrist begins to bleed, do not panic 1. Place 1 or 2 fingers firmly just slightly above the insertion site to stop the bleeding. You may be able to feel your pulse as you hold pressure. 2. Lift your finger after 5 minutes to see if the bleeding has stopped. 3. Once the bleeding has stopped, gently wipe the wrist area clean with a bandage. * If the bleeding from your wrist does not stop after 10 minutes, or if there is a large amount of bleeding or spurting, call 911 (do not drive yourself to the hospital). SKIN IRRITATION: * You may experience some redness and/or swelling in the area where radiation was administered. If any skin irritation occurs, please contact your family physician. FOLLOW UP VISIT: Keep any scheduled doctor appointments. please follow up with your computer hardware technician Pending Studies at Discharge: No Stand-Alone Forms: [facility] Skilled Items Patient informed of condition?: Yes DNR: Yes Discharge Level of Care: Other Communicable Disease: No Discharge Prognosis: Stable Lines: Peripheral IV Urinary Catheter: No Medications and DC Order Prescriptions: Continued amlodipine 5 mg tablet 5 mg PO HS Qty: 90 3RF losartan 100 mg tablet 100 mg PO QAM Qty: 90 3RF calcium carbonate-vitamin D3 [Calcium with Vitamin D] 600 mg(1,500mg) -400 unit tablet 1 tab PO BID Qty: 180 3RF isosorbide mononitrate 30 mg tablet extended release 24 hr 30 mg PO HS Qty: 90 3RF metoprolol succinate 50 mg tablet extended release 24 hr 50 mg PO HS Qty: 90 3RF atorvastatin 40 mg tablet 40 mg PO QAM Qty: 90 3RF nitroglycerin [Nitrostat] 0.4 mg tablet, sublingual 0.4 mg sublingual PRN PRN (Reason: chest pain) Qty: 25 5RF Rx Instructions: 1 tablet every 5 minutes for chest pain, up to 3 doses. call 911 if chest pain persists after 1st tab acetaminophen [Tylenol Arthritis Pain] 650 mg Tablet Extended Release 650 mg PO HS aspirin [Ecotrin Low Strength] 81 mg Tablet,Delayed Release (Dr/Ec) 81 mg PO QAM Qty: 30 0RF multivitamin with minerals Tablet 1 tab PO [id number] Rx Instructions: Sunday,Sunday,Sunday at bedtime Discharge Orders: Discharge Order (Routine); Ordered 04/02/23 Ordered By: Katlin Victoria Admission Data Admit Date/Time: 03/31/23 23:59 Attending Provider: Katlin Victoria Admit Provider: Jaz Garcia Primary Care Provider: Elif Wang Other Providers: Jaz Garcia ; Yonis Welch ; Rachael Patel Other Interventions: Discharge Summary Assessment (RN) Last Done: 04/03/23 05:09 Coding Level of Care Code 75724 INP/OBS DISCH >30 MIN Diagnoses Acute HFrEF (heart failure with reduced ejection fraction) I50.21 Wide-complex tachycardia R00.0 CAD (coronary artery disease) I25.10 Ischemic cardiomyopathy I25.5 Benign essential hypertension I10 Hyperlipidemia E78.5 Paroxysmal atrial fibrillation I48.0 Non-ST elevation (NSTEMI) myocardial infarction I21.4 SVT (supraventricular tachycardia) I47.1 Time Spent (min) 35
[2023-04-03] MEDS ORDERED: FUROSEMIDE 40 MG/4 ML VIAL IV SCH (09:00)
[2023-04-03] MEDS ORDERED: VALSARTAN/SACUBITRIL 51/49 MG TAB PO SCH (09:00)
[2023-04-04 14:50] LABS: iSTAT Arterial Blood Gas HCO3 27 meg/L (19-24); iSTAT Arterial Blood Gas pCO2 43 mmHg (35-46); iSTAT Arterial Blood Gas pH 7.41 (7.35-7.45); iSTAT Arterial Blood Gas pO2 33 mmHg (80-95); iSTAT Carbon Dioxide 29 mmol/L (24-31); iSTAT Hematocrit 37 % (37-47); iSTAT Hemoglobin 12.6 g/dl (12.0-16.0); iSTAT Potassium 2.8 mmol/L (3.3-5.0); iSTAT Sodium 128 mmol/L (135-144)
== END 2023-04-03 05:12 | disposition short-term general hospital (02) | DRG 280 ==
LOC: ED 21:11 → 2S 23:59 → SUATTDRO 23:59 → 2S 04-01 00:53